=== PATIENT | male | born 1930 | race Caucasian/White ===

== ENCOUNTER 2016-12-23 13:24 | Inpatient (IN) | payer BC, OTHER ==
--- NOTE | 2016-12-23 13:43 | PDOC ---
History of Present Illness <Karl Bello - Last Filed: 12/23/16 16:43> - General History Source: Patient Exam Limitations: No Limitations - History of Present Illness Initial Comments: 12/23/16 14:20 The patient is a 86 year old male with significant past medical history of HTN, hypercholesterolemia, BPH, CHF, cardiomyopathy, and a known right inguinal hernia, who presents to the ED with daughter complaining of AMS. Patient is confused as to why he is in the hospital but is aware that he is at [facility]. As per daughter, the patient has deviated from his baseline over the past two weeks. She also notes that his confusion is in and out. She notes that she hired and aid for the patient because she noticed unusual behaviour and increased confusion. She denies any history of dementia for the patient. As per daughter she discussed the case with Dr. Owens who prompted her to present to the ED for further evaluation. PCP -Dr. Owens <Leilani Cedillo - Last Filed: 12/23/16 17:18> - General Chief Complaint: Altered Mental Status Stated Complaint: PCP SENT, ALTERED MENTAL STATE Time Seen by Provider: 12/23/16 13:42 Past History - Past Medical History Anemia: No Asthma: No Cancer: No Cardiac Disorders: Yes (chf) CVA: No COPD: No CHF: Yes DVT: No Dementia: No Diabetes: No Dialysis: No GI Disorders: No Disorders: Yes (ENLARGED PROSTATE) HTN: Yes Hypercholesterolemia: Yes Liver Disease: No Psychiatric Problems: Yes (anxiety) Suicide Attempt (Hx): No Seizures: No Thyroid Disease: No - Surgical History Abdominal Surgery: No Appendectomy: No Cardiac Surgery: Yes (Stent X1) Cholecystectomy: No Lung Surgery: No Neurologic Surgery: No Orthopedic Surgery: Yes (T.L. KNEE) - Immunization History Immunization Up to Date: Yes - Psycho/Social/Smoking Cessation Hx Anxiety: No Suicidal Ideation: No Smoking Status: No Smoking History: Never smoked Have you smoked in the past 12 months: No Number of Cigarettes Smoked Daily: 0 Information on smoking cessation initiated: No Hx Alcohol Use: No Drug/Substance Use Hx: No Substance Use Type: None Hx Substance Use Treatment: No <Karl Bello - Last Filed: 12/23/16 16:43> <Leilani Cedillo - Last Filed: 02/05/17 17:18> - Past Medical History Allergies/Adverse Reactions: Allergies Allergy/AdvReac Type Severity Reaction Status Date / Time No Known Drug Allergies Allergy Verified 08/30/16 16:23 Home Medications: Ambulatory Orders Tamsulosin HCl 0.4 mg PO AM 11/04/12 Atorvastatin Ca [Lipitor] 80 mg PO HS 11/18/12 Carvedilol [Coreg -] 6.25 mg PO DAILY 06/09/16 Furosemide [Lasix -] 40 mg PO BID 06/09/16 Aspirin [ASA -] 81 mg PO DAILY 12/23/16 Spironolactone 25 mg PO ASDIR 12/23/16 Review of Systems - Review of Systems Able to Perform ROS?: Yes Comments:: 12/23/16 14:20 GENERAL/CONSTITUTIONAL: No fever or chills. No weakness. HEAD, EYES, EARS, NOSE AND THROAT: No change in vision. No ear pain or discharge. No sore throat. CARDIOVASCULAR: No chest pain or shortness of breath. RESPIRATORY: No cough, wheezing, or hemoptysis. GASTROINTESTINAL: No nausea, vomiting, diarrhea or constipation. GENITOURINARY: No dysuria, frequency, or change in urination. MUSCULOSKELETAL: No joint or muscle swelling or pain. No neck or back pain. SKIN: No rash NEUROLOGIC: No headache, vertigo, loss of consciousness, or change in strength/ sensation. ENDOCRINE: No increased thirst. No abnormal weight change. HEMATOLOGIC/LYMPHATIC: No anemia, easy bleeding, or history of blood clots. ALLERGIC/IMMUNOLOGIC: No hives or skin allergy. <Leilani Cedillo - Last Filed: 12/23/16 17:18> *Physical Exam - Vital Signs Last Vital Signs Temp Pulse Resp BP Pulse Ox 97.5 F L 50 L 18 100/37 99 12/23/16 13:28 12/23/16 13:28 12/23/16 13:28 12/23/16 13:28 12/23/16 13:28 <Karl Bello - Last Filed: 12/23/16 16:43> - Vital Signs Last Vital Signs Temp Pulse Resp BP Pulse Ox 97.5 F L 50 L 18 100/37 99 12/23/16 13:28 12/23/16 13:28 12/23/16 13:28 12/23/16 13:28 12/23/16 13:28 - Physical Exam Comments: 12/23/16 14:20 GENERAL: Awake, alert, and oriented, in no acute distress HEAD: No signs of trauma EYES: PERRLA, EOMI, sclera anicteric, conjunctiva clear ENT: Auricles normal inspection, hearing grossly normal, nares patent, oropharynx clear without exudates. Moist mucosa NECK: Normal ROM, supple, no lymphadenopathy, JVD, or masses LUNGS: Breath sounds equal, clear to auscultation bilaterally. No wheezes, and no crackles HEART: Regular rate and rhythm, normal S1 and S2, no murmurs, rubs or gallops ABDOMEN: Soft, nontender, normoactive bowel sounds. No guarding, no rebound. No masses EXTREMITIES: Normal range of motion, no edema. No clubbing or cyanosis. No cords, erythema, or tenderness NEUROLOGICAL: Cranial nerves II through XII grossly intact. Normal speech, normal gait SKIN: Warm, Dry, normal turgor, no rashes or lesions noted. <Leilani Cedillo - Last Filed: 12/23/16 17:18> Heart Score/ECG Review #1 12/23/16 17:17 EKG was reviewed by Dr. Bello. Impression: sinus bradycardia with 1st degree AV block, low voltage QRS, vent. rate 51 bpm. <Leilani Cedillo - Last Filed: 12/23/16 17:18> ED Treatment Course - LABORATORY CBC & Chemistry Diagram: 12/23/16 14:15 12/23/16 14:15 <Karl Bello - Last Filed: 12/23/16 16:43> - LABORATORY CBC & Chemistry Diagram: 12/23/16 14:15 12/23/16 14:15 <Leilani Cedillo - Last Filed: 12/23/16 17:18> Medical Decision Making - Medical Decision Making 12/23/16 14:22 The patient is a 86 year old male with significant past medical history of HTN, hypercholesterolemia, BPH, CHF, cardiomyopathy, and a known right inguinal hernia who presents with AMS. Will order CT, blood work and UA. Will provide supportive care and reassess. 12/23/16 16:28 A call was placed to Dr. Owens. Awaiting a call back. <Leilani Cedillo - Last Filed: 12/23/16 17:18> *DC/Admit/Observation/Transfer - Discharge Dispostion Admit: Yes - Attestations Physician Attestion: 12/23/16 13:43 I, Dr. Karl Bello, attest that this document has been prepared under my direction and personally reviewed by me in its entirety. I further attest, that it accurately reflects all work, treatment, procedures and medical decision -making performed by me. <Karl Bello - Last Filed: 12/23/16 16:43> - Attestations Scribe Attestion: 12/23/16 14:22 Documentation prepared by TASNEEM Willingham, acting as medical technical writer for Karl Bello MD/. <Leilani Cedillo - Last Filed: 12/23/16 17:18> Diagnosis at time of Disposition: Renal insufficiency, Pleural effusion due to another disorder Mental status change Qualifiers: Altered mental status type: disorientation Qualified Code(s): R41.0 - Disorientation, unspecified CHF exacerbation Qualifiers: Congestive heart failure type: combined Qualified Code(s): I50.43 - Acute on chronic combined systolic (congestive) and diastolic (congestive) heart failure - Discharge Dispostion Condition at time of disposition: Unchanged/Unknown - Referrals
[2016-12-23 14:30] LABS: URINE APPEARANCE CLEAR; URINE BILIRUBIN NEGATIVE (NEGATIVE); URINE COLOR LTYELLOW; URINE GLUCOSE (UA) NEGATIVE (NEGATIVE); URINE KETONE NEGATIVE (NEGATIVE); URINE NITRITE NEGATIVE (NEGATIVE); URINE PROTEIN NEGATIVE (NEGATIVE); URINE UROBILINOGEN NEGATIVE E.U./dl (0.2-1.0)
[2016-12-23 14:33] LABS: URINE BLOOD 1+ (NEGATIVE); URINE LEUK ESTERASE TRACE (NEGATIVE)
[2016-12-23 14:34] LABS: EOSINOPHIL 6.8 % (0-4.5); MCHC 32.8 g/dl (32.0-35.9); MEAN CELL VOLUME 88.5 fl (80-96); MEAN PLT VOLUME 8.5 fl (7.5-11.1); NEUTROPHILS 75.5 % (42.8-82.8); PLATELET COUNT 145 K/MM3 (134-434); RDW 19.7 % (11.9-15.9); WHITE BLOOD COUNT 6.4 K/mm3 (4.0-10.0)
[2016-12-23 14:35] LABS: URINE HYALINE CAST 14 /lpf; URINE MUCUS RARE; URINE WBC 1 /hpf (3-5)
[2016-12-23 14:40] LABS: INR 1.2 (0.82-1.09); PROTHROMBIN TIME (PATIENT) 13.3 SEC (9.98-11.88)
[2016-12-23 14:55] LABS: BILIRUBIN,TOTAL 0.8 mg/dL (0.2-1.0); CREATININE 2.2 mg/dL (0.7-1.3); TOT PROT 6.7 g/dl (6.4-8.2)
[2016-12-23] MEDS ORDERED: SODIUM POLYSTYRENE SULFONATE 15 GM/60 ML BOTTLE PO ONE (16:49)
[2016-12-23] MEDS ORDERED: SODIUM POLYSTYRENE SULFONATE 15 GM/60 ML BOTTLE ONE (16:52)
[2016-12-23] MEDS ORDERED: SODIUM CHLORIDE 0.9% 1000 ML INFUS.BAG IV ONE (17:54)
[2016-12-23] MEDS ORDERED: ACETAMINOPHEN 325 MG TABLET (FP) PO PRN (18:38)
[2016-12-23 20:49] VITALS: BMI 22.1
[2016-12-23] MEDS: ATORVASTATIN CA 80 MG TABLET (FP) PO SCH (21:25)
[2016-12-23] MEDS: HEPARIN NA (PORCINE) 5,000 UNITS/ML 1ML VIAL SQ SCH (21:26)
[2016-12-24] MEDS: TAMSULOSIN HCL 0.4 MG CAP.ER.24H (FP) PO SCH (06:03)
[2016-12-24 06:57] LABS: BASOPHIL 1.2 % (0-2.0); MCH 28.8 pg (25.7-33.7); MCHC 32.6 g/dl (32.0-35.9); MEAN CELL VOLUME 88.4 fl (80-96); MEAN PLT VOLUME 8.2 fl (7.5-11.1); NEUTROPHILS 74.3 % (42.8-82.8); PLATELET COUNT 151 K/MM3 (134-434); RDW 19.5 % (11.9-15.9); WHITE BLOOD COUNT 6.5 K/mm3 (4.0-10.0)
[2016-12-24 07:20] LABS: ALBUMIN 2.8 g/dl (3.4-5.0); CALCIUM 8.2 mg/dL (8.5-10.1); TOT PROT 6.4 g/dl (6.4-8.2)
[2016-12-24] MEDS: HEPARIN NA (PORCINE) 5,000 UNITS/ML 1ML VIAL SQ SCH ×2 (09:56→22:00)
[2016-12-24] MEDS: CARVEDILOL 6.25 MG TABLET (FP) PO SCH (09:56)
[2016-12-24] MEDS: PANTOPRAZOLE 40 MG TABLET (FP) PO SCH (09:56)
[2016-12-24] MEDS: ASPIRIN 81 MG CHEWABLE TABLETS PO SCH (09:56)
[2016-12-24] MEDS ORDERED: SODIUM CHLORIDE 1,000 ML IV SCH (11:00)
--- NOTE | 2016-12-24 11:29 | CON.CARD ---
Consult Consult Specialty:: Cardiology Referred by:: Dario Swain MD Reason for Consultation:: CAD - History of Present Illness Chief Complaint: Altered mental status History of Present Illness: Patient is an 86 year old male with h/o ASHD S/P PCI/stent, angina pectoris, LV diastolic dysfunction with h/o failure, possible infiltrative cardiomyopathy, HTN/HCVD and hypercholesterolemia admitted for altered mental status, lethargy, acute on CKD and hyperkalemia, reports at chronic dyspnea, denies LE edema, chest pain, palpitations, near or true syncope, orthopnea, PND. Feels better after diuretics held and hydration. PCP -Dr. Owens - History Source History Provided By: Medical Record Limitations to Obtaining History: Poor Historian - Past Medical History Cardio/Vascular: Yes: CAD, CHF, HTN, Hyperlipdemia Renal/: Yes: BPH - Past Surgical History Past Surgical History: Yes: Stent, TURP - Alcohol/Substance Use Hx Alcohol Use: No History of Substance Use: reports: None - Smoking History Smoking history: Never smoked Have you smoked in the past 12 months: No Aproximately how many cigarettes per day: 0 - Social History ADL: Independent History of Recent Travel: No Home Medications - Allergies Allergies/Adverse Reactions: Allergies Allergy/AdvReac Type Severity Reaction Status Date / Time No Known Drug Allergies Allergy Verified 08/30/16 16:23 - Home Medications Home Medications: Ambulatory Orders Tamsulosin HCl 0.4 mg PO AM 11/04/12 Atorvastatin Ca [Lipitor] 80 mg PO HS 11/18/12 Carvedilol [Coreg -] 6.25 mg PO DAILY 06/09/16 Furosemide [Lasix -] 40 mg PO BID 06/09/16 Aspirin [ASA -] 81 mg PO DAILY 12/23/16 Spironolactone 25 mg PO ASDIR 12/23/16 Family Disease History - Family Disease History Family Disease History: Other: Father (unknown condition) Review of Systems - Review of Systems Constitutional: reports: Lethargy Neurological: reports: Confusion Vital Signs: Vital Signs Temperature 97.5 F L 12/24/16 05:00 Pulse Rate 61 12/24/16 05:00 Respiratory Rate 18 12/24/16 05:00 Blood Pressure 99/53 12/24/16 05:00 O2 Sat by Pulse Oximetry (%) 97 12/23/16 21:00 Constitutional: Yes: No Distress, Calm Neck: Yes: Supple Respiratory: Yes: Regular, Diminished Gastrointestinal: Yes: Normal Bowel Sounds, Soft Cardiovascular: Yes: Regular Rate and Rhythm JVD: No Carotid Bruit: No Heart Sounds: Yes: S1, S2 Murmur: Yes: Systolic Murmur, Grade 2 Edema: No - Other Data Labs, Other Data: CBC, BMP 12/24/16 06:00 12/24/16 06:00 INR, PTT INR 1.20 (0.82-1.09) H 12/23/16 14:15 Troponin, BNP 12/24/16 06:00 B-Natriuretic Peptide 33521.87 H Troponin, BNP 12/24/16 06:00 B-Natriuretic Peptide 87181.87 H SB @ 51 1st deg AVB, IVCD Ejection Fraction %: LVEF > or = 40 % Imaging - Results Chest X-ray: Report Reviewed (Bilateral pleural effusions) Cat Scan: Report Reviewed (HCT: No acute changes) Problem List - Problems (1) Acute metabolic encephalopathy Code(s): G93.41 - METABOLIC ENCEPHALOPATHY (2) Oovyo-uz-zvdszae kidney injury Code(s): N17.9 - ACUTE KIDNEY FAILURE, UNSPECIFIED N18.9 - CHRONIC KIDNEY DISEASE, UNSPECIFIED (3) Coronary artery disease Code(s): I25.10 - ATHSCL HEART DISEASE OF [place] CORONARY ARTERY W/O ANG PCTRS Qualifiers: Coronary Disease-Associated Artery/Lesion type: [place] artery [place] vs. transplanted heart: [place] heart Associated angina: without angina Qualified Code(s): I25.10 - Atherosclerotic heart disease of [place] coronary artery without angina pectoris (4) Diastolic CHF Code(s): I50.30 - UNSPECIFIED DIASTOLIC (CONGESTIVE) HEART FAILURE Qualifiers : Congestive heart failure chronicity: chronic Qualified Code(s): I50.32 - Chronic diastolic (congestive) heart failure (5) HLD (hyperlipidemia) Code(s): E78.5 - HYPERLIPIDEMIA, UNSPECIFIED Qualifiers: Hyperlipidemia type: pure hypercholesterolemia Qualified Code(s): E78.0 - Pure hypercholesterolemia (6) HTN (hypertension) Code(s): I10 - ESSENTIAL (PRIMARY) HYPERTENSION Qualifiers: Hypertension type: essential hypertension Qualified Code(s): I10 - Essential (primary) hypertension (7) Status post coronary artery stent placement Code(s): Z95.5 - PRESENCE OF CORONARY ANGIOPLASTY IMPLANT AND GRAFT Assessment/Plan 02/09/2016 Echo: Severe cLVH, mild-mod LV systolic dysfunction, mod AR, MR, mild BURT 1.7 cm^2, RVSP 38 mmHg 1. Acute metabolic encephelopathy improving 2. Acute on chronic kidney injury with hyperkalemia improving 3. Chronic diastolic CHF infiltrative cardiomyopathy cannot be excluded 4. CAD post PCI/stent, angina pectoris 5. HTN 6. Hypercholesterolemia 7. Questionable PAF although no clear documentation 8. Anemia PLAN: 1. Diuretics held, judicious hydration, f/u renal U/S, renal recovery and electrolytes 2. Continue Carvedilol 6.25 bid as hemodynamics tolerate 3. Resume Losartan once renal function stabilizes and hyperkalemia resolves 4. Continue ASA 81 qd and Lipitor 80 qd, Zetia was d/cande in office 5. Thank you for consultative opportunity
--- NOTE | 2016-12-24 11:30 | HP ---
Admitting History and Physical - Primary Care Physician PCP: Jose Owens - Admission Chief Complaint: I felt weak History of Present Illness: Mr Wisdom is a very pleasant 86 year old male who comes in with confusion. He currently says he is doing better and he is here for weakness. He says that it has been present for the past two weeks and it is new. He denies fevers, chills , lightheadedness, dizziness, chest pain or pressure, orthopnea, abdominal pain , nausea, vomiting, diarrhea constipation, or difficulty urinating. He says he does have shortness of breath but it is chronic. He says his legs are also chronically swollen. Per ER note daughter observed patient becoming more confused over the past two weeks and was concerning enough to hire an aid. However he was not improving so she brought him in for further evaluation. History Source: Patient Limitations to Obtaining History: Clinical Condition - Past Medical History Cardiovascular: Yes: CAD, CHF, HTN, Hyperlipdemia Renal/: Yes: BPH - Past Surgical History Past Surgical History: Yes: Stent, TURP - Smoking History Smoking history: Never smoked Have you smoked in the past 12 months: No Aproximately how many cigarettes per day: 0 - Alcohol/Substance Use Hx Alcohol Use: No History of Substance Use: reports: None - Social History Usual Living Arrangement: Yes: Alone ADL: Independent History of Recent Travel: No Home Medications - Allergies Allergies/Adverse Reactions: Allergies Allergy/AdvReac Type Severity Reaction Status Date / Time No Known Drug Allergies Allergy Verified 08/30/16 16:23 - Home Medications Home Medications: Ambulatory Orders Tamsulosin HCl 0.4 mg PO AM 11/04/12 Atorvastatin Ca [Lipitor] 80 mg PO HS 11/18/12 Carvedilol [Coreg -] 6.25 mg PO DAILY 06/09/16 Furosemide [Lasix -] 40 mg PO BID 06/09/16 Aspirin [ASA -] 81 mg PO DAILY 12/23/16 Spironolactone 25 mg PO ASDIR 12/23/16 Family Disease History - Family Disease History Family Disease History: Other: Father (unknown condition) Review of Systems Findings/Remarks: Full review of systems obtained, as per HPI and otherwise negative. Physical Examination Vital Signs: Vital Signs Temperature 97.5 F L 12/24/16 05:00 Pulse Rate 61 12/24/16 05:00 Respiratory Rate 18 02/06/17 05:00 Blood Pressure 99/53 12/24/16 05:00 O2 Sat by Pulse Oximetry (%) 97 12/23/16 21:00 Constitutional: Yes: Well Nourished, No Distress, Calm Eyes: Yes: Conjunctiva Clear, EOM Intact, PERRL HENT: Yes: Atraumatic, Normocephalic Cardiovascular: Yes: Pulse Irregular. No: Tachycardia, Gallop, Murmur, Rub Respiratory: Yes: Regular, CTA Bilaterally. No: Rales, Rhonchi, Wheezes Gastrointestinal: Yes: Normal Bowel Sounds. No: Distention, Tenderness Extremities: Yes: WNL Edema: No Labs: CBC, BMP 12/24/16 06:00 12/24/16 06:00 Imaging - Results Chest X-ray: Report Reviewed, Image Reviewed Cat Scan: Report Reviewed Problem List - Problems (1) Aseti-tc-bycrtux kidney injury Assessment/Plan: -Mr Wisdom comes in with mental status changes and found to have ARF on CKD -suspect secondary to diuresis, on both aldactone and lasix as an outpatient for CHF -hold diuretics -gentle hydration -obtain renal ultrasound -nephrology consulted Code(s): N17.9 - ACUTE KIDNEY FAILURE, UNSPECIFIED N18.9 - CHRONIC KIDNEY DISEASE, UNSPECIFIED (2) Acute metabolic encephalopathy Assessment/Plan: -secondary to uremia from ARF on CKD -treat ARF -continue hydration -monitor for improvement Code(s): G93.41 - METABOLIC ENCEPHALOPATHY (3) Diastolic CHF Assessment/Plan: -not in exacerbation -suspect dehydrated -gentle hydration -cardiology consulted -will need close monitoring Code(s): I50.30 - UNSPECIFIED DIASTOLIC (CONGESTIVE) HEART FAILURE Qualifiers : Congestive heart failure chronicity: chronic Qualified Code(s): I50.32 - Chronic diastolic (congestive) heart failure (4) HTN (hypertension) Assessment/Plan: -currently hypotensive secondary to dehydration -continue coreg for atrial fibrillation -holding lasix and aldactone as above -suspect will improve once fluid resuscitated Code(s): I10 - ESSENTIAL (PRIMARY) HYPERTENSION Qualifiers: Hypertension type: essential hypertension Qualified Code(s): I10 - Essential (primary) hypertension (5) Atrial fibrillation Assessment/Plan: -continue coreg -rate controlled -noted not on anticoagulation, will d/w cardiology Code(s): I48.91 - UNSPECIFIED ATRIAL FIBRILLATION Qualifiers: Atrial fibrillation type: chronic Qualified Code(s): I48.2 - Chronic atrial fibrillation (6) BPH (benign prostatic hyperplasia) Assessment/Plan: -continue flomax Code(s): N40.0 - BENIGN PROSTATIC HYPERPLASIA WITHOUT LOWER URINRY TRACT SYMP (7) Coronary artery disease Assessment/Plan: -quiescent -currently without chest pain -continue coreg and statin Code(s): I25.10 - ATHSCL HEART DISEASE OF [place] CORONARY ARTERY W/O ANG PCTRS Qualifiers: Coronary Disease-Associated Artery/Lesion type: [place] artery [place] vs. transplanted heart: [place] heart Associated angina: without angina Qualified Code(s): I25.10 - Atherosclerotic heart disease of [place] coronary artery without angina pectoris (8) HLD (hyperlipidemia) Assessment/Plan: -continue statin Code(s): E78.5 - HYPERLIPIDEMIA, UNSPECIFIED Qualifiers: Hyperlipidemia type: Pure hypercholesterolemia Qualified Code(s): E78.0 - Pure hypercholesterolemia
--- NOTE | 2016-12-24 12:24 | CONSULT ---
Consult - text type - Consultation Consultation Note: Renal Consult for DARNELL on CKD This is a 86 year old gentleman with PMhx of CAD s/p PCI and stenting, CHF, BPH , CKD (baseline line Cr 1.4?)Hypertension who presented with AMS/Confusion at home and found to have BUN/Cr of 98/2.2. Pt is oriented x 3 but cannot specify why he came to the hospital. S/p IVF since admission. Denies any sob, chest pain. Denies any CKD history. Denies nephrolithiasis, [place], hematuria, dark urine. Denies any NSAID use. No recent contrast exposure. Was on Lasix + Aldactone at home. No SOFIA/ARB. Feels well now. PMhx: as above Allergies: NKDA Family Hx: NC Social Hx: No T/A/D ROS: as per HPI, all other pertinent ros negative Home Meds: Home Medications Medication Instructions Recorded Tamsulosin HCl 0.4 mg PO AM 11/04/12 Atorvastatin Ca [Lipitor] 80 mg PO HS 11/18/12 Carvedilol [Coreg -] 6.25 mg PO DAILY 06/09/16 Furosemide [Lasix -] 40 mg PO BID 06/09/16 Aspirin [ASA -] 81 mg PO DAILY 12/23/16 Spironolactone 25 mg PO ASDIR 12/23/16 Vital Signs Temperature 97.5 F L 12/24/16 05:00 Pulse Rate 61 12/24/16 05:00 Respiratory Rate 18 12/24/16 05:00 Blood Pressure 99/53 12/24/16 05:00 O2 Sat by Pulse Oximetry (%) 97 12/23/16 21:00 Intake & Output 12/21/16 12/22/16 12/23/16 12/24/16 23:59 23:59 23:59 23:59 Intake Total 50 50 Balance 50 50 Weight 137 lb 5 oz 130 lb 4.8 oz Gen: NAD, awake and alert HEENT: NC/AT, MMM, No JVD CVS: RRR, No M/R Lungs: + rales at lung bases Abd: soft NT/ND Ext: No edema, clubbing or cyanosis Neuro: AAOX3, slow, confused : No bladder distension CBC, BMP 12/24/16 06:00 12/24/16 06:00 Laboratory Tests 12/23/16 14:15 Urine Protein Negative Urine Glucose (UA) Negative Urine Ketones Negative Urine Blood 1+ H Urine Nitrite Negative Urine Bilirubin Negative Urine Urobilinogen Negative Urine RBC None Current Medications Acetaminophen (Tylenol -) 650 mg PO Q6H PRN PRN Reason: FEVER OR PAIN Aspirin (Asa -) 81 mg PO DAILY [facility] Last Admin: 12/24/16 09:56 Dose: 81 mg Atorvastatin Calcium (Lipitor -) 80 mg PO HS [facility] Last Admin: 12/23/16 21:25 Dose: 80 mg Carvedilol (Coreg -) 6.25 mg PO DAILY [facility] Last Admin: 12/24/16 09:56 Dose: 6.25 mg Heparin Sodium (Porcine) (Heparin -) 5,000 unit SQ BID [facility] Last Admin: 12/24/16 09:56 Dose: 5,000 unit Sodium Chloride (Normal Saline -) 1,000 mls @ 50 mls/hr IV ASDIR [facility] Stop: 12/25/16 10:55 Pantoprazole Sodium (Protonix -) 40 mg PO DAILY [facility] Last Admin: 12/24/16 09:56 Dose: 40 mg Tamsulosin HCl (Flomax -) 0.4 mg PO AM [facility] Last Admin: 12/24/16 06:03 Dose: 0.4 mg A/p 86 year old gentleman with PMhx of CAD s/p PCI and stenting, CHF, BPH, CKD ( baseline line Cr 1.4?)Hypertension who presented with AMS/Confusion at home and found to have BUN/Cr of 98/2.2. #DARNELL on CKD Likey due to intravascular volume depletion (high BUN/Cr ratio, on diuretics, clinialy evolemic to dry) Check FeUrea, UPCR Check kidney and bladder US hold diuretics for now but caution with IVF given Hx of CHF Trend BUN/Cr avoid nsaids, sofia/arb for now #CHF (?Amyloid appearance on prior eceho) no overt volume overload at this time consider CT of the chest to better characteize effusions vs. pleural lung disease check SPEP/UPEP/Free light chains Cardiology following #Confusion/AMS CT head negative work up as per primary #Anemia Check iron profile SPEP/UPEP #BPH Continue Flomax Thank you Will follow Devin Edmondson DO
--- NOTE | 2016-12-24 13:31 | EKG ---
Test Reason : Blood Pressure : / mmHG Vent. Rate : 051 BPM Atrial Rate : 051 BPM P-R Int : 000 ms QRS Dur : 102 ms QT Int : 468 ms P-R-T Axes : 000 006 202 degrees QTc Int : 431 ms SINUS BRADYCARDIA WITH 1ST DEGREE A-V BLOCK LOW VOLTAGE QRS CANNOT RULE OUT ANTERIOR INFARCT , AGE UNDETERMINED ABNORMAL ECG WHEN COMPARED WITH ECG OF 12-JUN-2016 10:01, QUESTIONABLE CHANGE IN QRS AXIS NONSPECIFIC T WAVE ABNORMALITY HAS REPLACED INVERTED T WAVES IN INFERIOR LEADS Confirmed by CLARISA ESCOBEDO MD ([id number]) on 12/24/2016 1:31:11 PM Referred By: Confirmed By:CLARISA ESCOBEDO MD
[2016-12-24] MEDS: ATORVASTATIN CA 80 MG TABLET (FP) PO SCH (22:00)
[2016-12-25] MEDS: TAMSULOSIN HCL 0.4 MG CAP.ER.24H (FP) PO SCH (06:57)
[2016-12-25 07:24] LABS: BASOPHIL 0.9 % (0-2.0); EOSINOPHIL 7.7 % (0-4.5); MCH 29.4 pg (25.7-33.7); MCHC 33.5 g/dl (32.0-35.9); MEAN CELL VOLUME 87.9 fl (80-96); MEAN PLT VOLUME 8.3 fl (7.5-11.1); NEUTROPHILS 75.1 % (42.8-82.8); PLATELET COUNT 147 K/MM3 (134-434); RDW 19.3 % (11.9-15.9); WHITE BLOOD COUNT 7.1 K/mm3 (4.0-10.0)
[2016-12-25 07:40] LABS: ALBUMIN 2.8 g/dl (3.4-5.0); CALCIUM 8.1 mg/dL (8.5-10.1); CREATININE 1.9 mg/dL (0.7-1.3); MAGNESIUM 2.8 mg/dL (1.8-2.4); PHOSPHOROUS 3.2 mg/dL (2.5-4.9)
[2016-12-25 07:41] LABS: TOT PROT 6.3 g/dl (6.4-8.2)
[2016-12-25] MEDS: HEPARIN NA (PORCINE) 5,000 UNITS/ML 1ML VIAL SQ SCH ×2 (09:30→22:54)
[2016-12-25] MEDS: PANTOPRAZOLE 40 MG TABLET (FP) PO SCH (09:30)
[2016-12-25] MEDS: CARVEDILOL 6.25 MG TABLET (FP) PO SCH (09:32)
[2016-12-25] MEDS: ASPIRIN 81 MG CHEWABLE TABLETS PO SCH (09:33)
--- NOTE | 2016-12-25 10:47 | PN ---
Progress Note, Physician Chief Complaint: Events noted Not in distress History of Present Illness: Patient was seen and examined. Awake and alert. Chart was reviewed Denies chest pain or shortness of breath Appears comfortable - Current Medication List Current Medications: Active Medications Acetaminophen (Tylenol -) 650 mg PO Q6H PRN PRN Reason: FEVER OR PAIN Aspirin (Asa -) 81 mg PO DAILY [facility] Last Admin: 12/25/16 09:33 Dose: 81 mg Atorvastatin Calcium (Lipitor -) 80 mg PO HS [facility] Last Admin: 12/24/16 22:00 Dose: 80 mg Carvedilol (Coreg -) 6.25 mg PO DAILY [facility] Last Admin: 12/25/16 09:32 Dose: Not Given Heparin Sodium (Porcine) (Heparin -) 5,000 unit SQ BID [facility] Last Admin: 12/25/16 09:30 Dose: 5,000 unit Sodium Chloride (Normal Saline -) 1,000 mls @ 50 mls/hr IV ASDIR [facility] Stop: 12/25/16 10:55 Last Admin: 12/24/16 19:13 Dose: Not Given Pantoprazole Sodium (Protonix -) 40 mg PO DAILY [facility] Last Admin: 12/25/16 09:30 Dose: 40 mg Tamsulosin HCl (Flomax -) 0.4 mg PO AM [facility] Last Admin: 12/25/16 06:57 Dose: 0.4 mg - Objective Vital Signs: Vital Signs Temperature 97.5 F L 12/25/16 08:49 Pulse Rate 71 12/25/16 08:49 Respiratory Rate 20 12/25/16 08:49 Blood Pressure 97/52 12/25/16 08:49 O2 Sat by Pulse Oximetry (%) 92 L 12/25/16 08:50 Neck: Yes: Supple Cardiovascular: Yes: Regular Rate and Rhythm, Murmur (Soft SM), S1, S2 Respiratory: Yes: Diminished Gastrointestinal: Yes: Normal Bowel Sounds, Soft. No: Tenderness Edema: No Additional Findings/Remarks: - Review of Systems Constitutional: denies: Chills, Fever Cardiovascular: As noted above Respiratory: denies: Cough or Sputum Production Gastrointestinal: denies: Nausea, Vomiting, Diarrhea, Constipation or Abdominal Pain Musculoskeletal: No symptoms reported Neurological: denies: Dizziness or Headaches Labs: CBC, BMP 12/25/16 06:00 12/25/16 06:00 Problem List - Problems (1) Acute metabolic encephalopathy Code(s): G93.41 - METABOLIC ENCEPHALOPATHY (2) CHF exacerbation Code(s): I50.9 - HEART FAILURE, UNSPECIFIED Qualifiers: Congestive heart failure type: combined Qualified Code(s): I50.43 - Acute on chronic combined systolic (congestive) and diastolic (congestive) heart failure (3) Jhlxk-kb-oxfumzs kidney injury Code(s): N17.9 - ACUTE KIDNEY FAILURE, UNSPECIFIED N18.9 - CHRONIC KIDNEY DISEASE, UNSPECIFIED (4) Atrial fibrillation Code(s): I48.91 - UNSPECIFIED ATRIAL FIBRILLATION Qualifiers: Atrial fibrillation type: chronic Qualified Code(s): I48.2 - Chronic atrial fibrillation (5) Coronary artery disease Code(s): I25.10 - ATHSCL HEART DISEASE OF [place] CORONARY ARTERY W/O ANG PCTRS Qualifiers: Coronary Disease-Associated Artery/Lesion type: [place] artery [place] vs. transplanted heart: [place] heart Associated angina: without angina Qualified Code(s): I25.10 - Atherosclerotic heart disease of [place] coronary artery without angina pectoris (6) HLD (hyperlipidemia) Code(s): E78.5 - HYPERLIPIDEMIA, UNSPECIFIED Qualifiers: Hyperlipidemia type: pure hypercholesterolemia Qualified Code(s): E78.0 - Pure hypercholesterolemia (7) HTN (hypertension) Code(s): I10 - ESSENTIAL (PRIMARY) HYPERTENSION Qualifiers: Hypertension type: essential hypertension Qualified Code(s): I10 - Essential (primary) hypertension (8) Pleural effusion due to CHF (congestive heart failure) Code(s): I50.9 - HEART FAILURE, UNSPECIFIED (9) Status post coronary artery stent placement Code(s): Z95.5 - PRESENCE OF CORONARY ANGIOPLASTY IMPLANT AND GRAFT Assessment/Plan 1. Acute metabolic encephalopathy improving 2. Acute on chronic kidney injury with hyperkalemia improving 3. Chronic diastolic CHF - infiltrative cardiomyopathy cannot be excluded 4. CAD post PCI/stent, angina pectoris 5. HTN 6. Hypercholesterolemia 7. Anemia PLAN: 1. Diuretics held, judicious hydration, follow renal function 2. Continue Carvedilol 6.25 mg BID as hemodynamics tolerate 3. Resume Losartan once renal function stabilizes and hyperkalemia resolves 4. Continue ASA 81 mg QD and Lipitor 80 mg QHS Further plans are to follow Gulshan Escobedo MD
--- NOTE | 2016-12-25 11:01 | PN ---
Progress Note (short form) - Note Progress Note: Renal Follow up for DARNELL on CKD Pt seen and examined at the bedside No acute complaints denies sob, chest pain, abd pain, N/V/D good appetite good urine output Vital Signs Temperature 97.5 F L 12/25/16 08:49 Pulse Rate 71 12/25/16 08:49 Respiratory Rate 20 12/25/16 08:49 Blood Pressure 97/52 12/25/16 08:49 O2 Sat by Pulse Oximetry (%) 92 L 12/25/16 08:50 Intake & Output 12/22/16 12/23/16 12/24/16 12/25/16 23:59 23:59 23:59 23:59 Intake Total 50 1250 Output Total 1 Balance 50 1250 -1 Weight 137 lb 5 oz 130 lb 4.8 oz 134 lb 14.4 oz Gen: NAD, awake and alert CVS: RRR, No M/R Lungs: + rales at lung bases Abd: soft NT/ND Ext: No edema, clubbing or cyanosis CBC, BMP 12/25/16 06:00 12/25/16 06:00 Current Medications Acetaminophen (Tylenol -) 650 mg PO Q6H PRN PRN Reason: FEVER OR PAIN Aspirin (Asa -) 81 mg PO DAILY [facility] Last Admin: 12/25/16 09:33 Dose: 81 mg Atorvastatin Calcium (Lipitor -) 80 mg PO HS [facility] Last Admin: 12/24/16 22:00 Dose: 80 mg Carvedilol (Coreg -) 6.25 mg PO DAILY [facility] Last Admin: 12/25/16 09:32 Dose: Not Given Heparin Sodium (Porcine) (Heparin -) 5,000 unit SQ BID [facility] Last Admin: 12/25/16 09:30 Dose: 5,000 unit Pantoprazole Sodium (Protonix -) 40 mg PO DAILY [facility] Last Admin: 12/25/16 09:30 Dose: 40 mg Tamsulosin HCl (Flomax -) 0.4 mg PO AM [facility] Last Admin: 12/25/16 06:57 Dose: 0.4 mg A/p 86 year old gentleman with PMhx of CAD s/p PCI and stenting, CHF, BPH, CKD ( baseline line Cr 1.4?)Hypertension who presented with AMS/Confusion at home and found to have BUN/Cr of 98/2.2. #DARNELL on CKD Urine studies consistent with volume depletion Renal function improving slowly continue to hold diuretics for now Urine Protein to Cr ratio is 0.4 Renal Us showed normal size kidneys but an enlarged prostate holding IVF because of Hx of CHF, and small effusions seen on CXR/US #CHF (?Amyloid appearance on prior eceho) no overt volume overload at this time US showed b/l effusions consider CT of the chest to better characterize effusions vs. pleural lung disease SPEP/UPEP/Free light chains- pending Cardiology following #Confusion/AMS CT head negative work up as per primary #Anemia Check iron profile SPEP/UPEP #BPH Continue Flomax Devin Edmondson DO
--- NOTE | 2016-12-25 17:06 | PN ---
Progress Note, Physician Chief Complaint: Mr Wisdom is without complaint. Sitting in chair and reading the newspaper. No cp, sob, n/v. - Current Medication List Current Medications: Active Medications Acetaminophen (Tylenol -) 650 mg PO Q6H PRN PRN Reason: FEVER OR PAIN Aspirin (Asa -) 81 mg PO DAILY [facility] Last Admin: 12/25/16 09:33 Dose: 81 mg Atorvastatin Calcium (Lipitor -) 80 mg PO HS [facility] Last Admin: 12/24/16 22:00 Dose: 80 mg Carvedilol (Coreg -) 6.25 mg PO DAILY [facility] Last Admin: 12/25/16 09:32 Dose: Not Given Heparin Sodium (Porcine) (Heparin -) 5,000 unit SQ BID [facility] Last Admin: 12/25/16 09:30 Dose: 5,000 unit Pantoprazole Sodium (Protonix -) 40 mg PO DAILY [facility] Last Admin: 12/25/16 09:30 Dose: 40 mg Tamsulosin HCl (Flomax -) 0.4 mg PO AM [facility] Last Admin: 12/25/16 06:57 Dose: 0.4 mg - Objective Vital Signs: Vital Signs Temperature 97.5 F L 12/25/16 16:24 Pulse Rate 67 12/25/16 16:24 Respiratory Rate 18 12/25/16 16:24 Blood Pressure 98/47 12/25/16 16:24 O2 Sat by Pulse Oximetry (%) 92 L 12/25/16 08:50 Constitutional: Yes: Well Nourished, No Distress, Calm Cardiovascular: Yes: Regular Rate and Rhythm. No: Gallop, Murmur, Rub Respiratory: Yes: Regular, CTA Bilaterally. No: Rales, Rhonchi, Wheezes Gastrointestinal: Yes: Normal Bowel Sounds, Soft. No: Distention, Tenderness Extremities: Yes: WNL Edema: No Labs: CBC, BMP 12/25/16 06:00 12/25/16 06:00 INR, PTT INR 1.20 (0.82-1.09) H 12/23/16 14:15 Problem List - Problems (1) Sdbhj-tp-[id number] kidney injury Code(s): N17.9 - ACUTE KIDNEY FAILURE, UNSPECIFIED N18.9 - CHRONIC KIDNEY DISEASE, UNSPECIFIED (2) Acute metabolic encephalopathy Code(s): G93.41 - METABOLIC ENCEPHALOPATHY (3) Diastolic CHF Code(s): I50.30 - UNSPECIFIED DIASTOLIC (CONGESTIVE) HEART FAILURE Qualifiers : Congestive heart failure chronicity: chronic Qualified Code(s): I50.32 - Chronic diastolic (congestive) heart failure (4) HTN (hypertension) Code(s): I10 - ESSENTIAL (PRIMARY) HYPERTENSION Qualifiers: Hypertension type: essential hypertension Qualified Code(s): I10 - Essential (primary) hypertension (5) Atrial fibrillation Code(s): I48.91 - UNSPECIFIED ATRIAL FIBRILLATION Qualifiers: Atrial fibrillation type: chronic Qualified Code(s): I48.2 - Chronic atrial fibrillation (6) BPH (benign prostatic hyperplasia) Code(s): N40.0 - BENIGN PROSTATIC HYPERPLASIA WITHOUT LOWER URINRY TRACT SYMP (7) Coronary artery disease Code(s): I25.10 - ATHSCL HEART DISEASE OF [place] CORONARY ARTERY W/O ANG PCTRS Qualifiers: Coronary Disease-Associated Artery/Lesion type: [place] artery [place] vs. transplanted heart: [place] heart Associated angina: without angina Qualified Code(s): I25.10 - Atherosclerotic heart disease of [place] coronary artery without angina pectoris (8) HLD (hyperlipidemia) Code(s): E78.5 - HYPERLIPIDEMIA, UNSPECIFIED Qualifiers: Hyperlipidemia type: pure hypercholesterolemia Qualified Code(s): E78.0 - Pure hypercholesterolemia Assessment/Plan (1) Zhlrl-qn-buvwyho kidney injury Assessment/Plan: -nephrology following -slowly improving -continue to hold diuretics -nephrology and cardiology to decide when safe to restart diuretics and losartan Code(s): N17.9 - ACUTE KIDNEY FAILURE, UNSPECIFIED N18.9 - CHRONIC KIDNEY DISEASE, UNSPECIFIED (2) Acute metabolic encephalopathy Assessment/Plan: -resolved Code(s): G93.41 - METABOLIC ENCEPHALOPATHY (3) Diastolic CHF Assessment/Plan: -not in exacerbation -cardiology following Code(s): I50.30 - UNSPECIFIED DIASTOLIC (CONGESTIVE) HEART FAILURE Qualifiers : Congestive heart failure chronicity: chronic Qualified Code(s): I50.32 - Chronic diastolic (congestive) heart failure (4) HTN (hypertension) Assessment/Plan: -currently hypotensive secondary to dehydration -continue coreg for atrial fibrillation -holding lasix and aldactone as above -defer further hydration since asymptomatic and with CHF Code(s): I10 - ESSENTIAL (PRIMARY) HYPERTENSION Qualifiers: Hypertension type: essential hypertension Qualified Code(s): I10 - Essential (primary) hypertension (5) Atrial fibrillation Assessment/Plan: -continue coreg -rate controlled -noted not on anticoagulation Code(s): I48.91 - UNSPECIFIED ATRIAL FIBRILLATION Qualifiers: Atrial fibrillation type: chronic Qualified Code(s): I48.2 - Chronic atrial fibrillation (6) BPH (benign prostatic hyperplasia) Assessment/Plan: -continue flomax Code(s): N40.0 - BENIGN PROSTATIC HYPERPLASIA WITHOUT LOWER URINRY TRACT SYMP (7) Coronary artery disease Assessment/Plan: -quiescent -currently without chest pain -continue coreg and statin Code(s): I25.10 - ATHSCL HEART DISEASE OF [place] CORONARY ARTERY W/O ANG PCTRS Qualifiers: Coronary Disease-Associated Artery/Lesion type: [place] artery [place] vs. transplanted heart: [place] heart Associated angina: without angina Qualified Code(s): I25.10 - Atherosclerotic heart disease of [place] coronary artery without angina pectoris (8) HLD (hyperlipidemia) Assessment/Plan: -continue statin Code(s): E78.5 - HYPERLIPIDEMIA, UNSPECIFIED Qualifiers: Hyperlipidemia type: Pure hypercholesterolemia Qualified Code(s): E78.0 - Pure hypercholesterolemia
[2016-12-25] MEDS: ATORVASTATIN CA 80 MG TABLET (FP) PO SCH (22:54)
[2016-12-26] MEDS: TAMSULOSIN HCL 0.4 MG CAP.ER.24H (FP) PO SCH (06:16)
[2016-12-26 07:23] LABS: BASOPHIL 0.8 % (0-2.0); MCH 29.2 pg (25.7-33.7); MCHC 33.2 g/dl (32.0-35.9); MEAN CELL VOLUME 87.7 fl (80-96); MEAN PLT VOLUME 8.1 fl (7.5-11.1); NEUTROPHILS 77.6 % (42.8-82.8); PLATELET COUNT 147 K/MM3 (134-434); RDW 19.3 % (11.9-15.9); WHITE BLOOD COUNT 6.9 K/mm3 (4.0-10.0)
[2016-12-26 07:49] LABS: CALCIUM 8.4 mg/dL (8.5-10.1); CREATININE 1.7 mg/dL (0.7-1.3); MAGNESIUM 2.8 mg/dL (1.8-2.4); PHOSPHOROUS 2.9 mg/dL (2.5-4.9)
[2016-12-26] MEDS: PANTOPRAZOLE 40 MG TABLET (FP) PO SCH (10:26)
[2016-12-26] MEDS: HEPARIN NA (PORCINE) 5,000 UNITS/ML 1ML VIAL SQ SCH ×2 (10:26→21:58)
[2016-12-26] MEDS: ASPIRIN 81 MG CHEWABLE TABLETS PO SCH (10:26)
[2016-12-26] MEDS: CARVEDILOL 6.25 MG TABLET (FP) PO SCH (10:26)
--- NOTE | 2016-12-26 12:54 | PN ---
Progress Note (short form) - Note Progress Note: Renal Follow up for DARNELL on CKD Pt seen and examined at the bedside no acute complaints denies sob, chest pain Vital Signs Temperature 97.6 F 12/26/16 05:39 Pulse Rate 73 12/26/16 05:39 Respiratory Rate 20 12/26/16 05:39 Blood Pressure 118/60 12/26/16 05:39 O2 Sat by Pulse Oximetry (%) 95 12/25/16 21:00 Intake & Output 12/23/16 12/24/16 12/25/16 12/26/16 23:59 23:59 23:59 23:59 Intake Total 50 1250 1400 150 Output Total 201 400 Balance 50 1250 1199 -250 Weight 137 lb 5 oz 130 lb 4.8 oz 134 lb 14.4 oz 135 lb 6.4 oz Gen: NAD, awake and alert CVS: RRR, No M/R Lungs: + rales at lung bases Abd: soft NT/ND Ext: No edema, clubbing or cyanosis CBC, BMP 12/26/16 06:00 12/26/16 06:00 Current Medications Acetaminophen (Tylenol -) 650 mg PO Q6H PRN PRN Reason: FEVER OR PAIN Aspirin (Asa -) 81 mg PO DAILY [facility] Last Admin: 12/26/16 10:26 Dose: 81 mg Atorvastatin Calcium (Lipitor -) 80 mg PO HS [facility] Last Admin: 12/25/16 22:54 Dose: 80 mg Carvedilol (Coreg -) 6.25 mg PO DAILY [facility] Last Admin: 12/26/16 10:26 Dose: 6.25 mg Heparin Sodium (Porcine) (Heparin -) 5,000 unit SQ BID [facility] Last Admin: 12/26/16 10:26 Dose: 5,000 unit Pantoprazole Sodium (Protonix -) 40 mg PO DAILY [facility] Last Admin: 12/26/16 10:26 Dose: 40 mg Tamsulosin HCl (Flomax -) 0.4 mg PO AM [facility] Last Admin: 12/26/16 06:16 Dose: 0.4 mg A/p 86 year old gentleman with PMhx of CAD s/p PCI and stenting, CHF, BPH, CKD ( baseline line Cr 1.4?)Hypertension who presented with AMS/Confusion at home and found to have BUN/Cr of 98/2.2. #DARNELL on CKD Urine studies consistent with volume depletion Renal function improving off diuretics pt w/o signs of volume expansion if BUN/cr improve tomorrow can resume Lasix 40mg Daily and further titrate as outpatient OK to start Losartan as outpatient if renal function stable on diuretics #CHF (?Amyloid appearance on prior eceho) no overt volume overload at this time US showed b/l effusions CT of chest done Pulmonary eval SPEP/UPEP/Free light chains- pending Cardiology following #Confusion/AMS CT head negative work up as per primary #Anemia Check iron profile SPEP/UPEP #BPH Continue Flomax Devin Edmondson DO
--- NOTE | 2016-12-26 13:20 | PN ---
Progress Note, Physician History of Present Illness: Mental status at baseline, denies chest pain or dyspnea. - Current Medication List Current Medications: Active Medications Acetaminophen (Tylenol -) 650 mg PO Q6H PRN PRN Reason: FEVER OR PAIN Aspirin (Asa -) 81 mg PO DAILY [facility] Last Admin: 12/26/16 10:26 Dose: 81 mg Atorvastatin Calcium (Lipitor -) 80 mg PO HS [facility] Last Admin: 12/25/16 22:54 Dose: 80 mg Carvedilol (Coreg -) 6.25 mg PO DAILY [facility] Last Admin: 12/26/16 10:26 Dose: 6.25 mg Heparin Sodium (Porcine) (Heparin -) 5,000 unit SQ BID [facility] Last Admin: 12/26/16 10:26 Dose: 5,000 unit Pantoprazole Sodium (Protonix -) 40 mg PO DAILY [facility] Last Admin: 12/26/16 10:26 Dose: 40 mg Tamsulosin HCl (Flomax -) 0.4 mg PO AM [facility] Last Admin: 12/26/16 06:16 Dose: 0.4 mg - Objective Vital Signs: Vital Signs Temperature 97.6 F 12/26/16 05:39 Pulse Rate 73 12/26/16 05:39 Respiratory Rate 20 12/26/16 05:39 Blood Pressure 118/60 12/26/16 05:39 O2 Sat by Pulse Oximetry (%) 95 12/25/16 21:00 Constitutional: Yes: No Distress, Calm Neck: Yes: Supple Cardiovascular: Yes: Regular Rate and Rhythm Respiratory: Yes: Regular, Diminished Gastrointestinal: Yes: Normal Bowel Sounds, Soft Edema: No Labs: CBC, BMP 12/26/16 06:00 12/26/16 06:00 INR, PTT INR 1.20 (0.82-1.09) H 12/23/16 14:15 Problem List - Problems (1) Acute metabolic encephalopathy Code(s): G93.41 - METABOLIC ENCEPHALOPATHY (2) Nuhhm-vt-sgfbywm kidney injury Code(s): N17.9 - ACUTE KIDNEY FAILURE, UNSPECIFIED N18.9 - CHRONIC KIDNEY DISEASE, UNSPECIFIED (3) Coronary artery disease Code(s): I25.10 - ATHSCL HEART DISEASE OF [place] CORONARY ARTERY W/O ANG PCTRS Qualifiers: Coronary Disease-Associated Artery/Lesion type: [place] artery [place] vs. transplanted heart: [place] heart Associated angina: without angina Qualified Code(s): I25.10 - Atherosclerotic heart disease of [place] coronary artery without angina pectoris (4) Diastolic CHF Code(s): I50.30 - UNSPECIFIED DIASTOLIC (CONGESTIVE) HEART FAILURE Qualifiers : Congestive heart failure chronicity: chronic Qualified Code(s): I50.32 - Chronic diastolic (congestive) heart failure (5) HLD (hyperlipidemia) Code(s): E78.5 - HYPERLIPIDEMIA, UNSPECIFIED Qualifiers: Hyperlipidemia type: pure hypercholesterolemia Qualified Code(s): E78.0 - Pure hypercholesterolemia (6) HTN (hypertension) Code(s): I10 - ESSENTIAL (PRIMARY) HYPERTENSION Qualifiers: Hypertension type: essential hypertension Qualified Code(s): I10 - Essential (primary) hypertension (7) Status post coronary artery stent placement Code(s): Z95.5 - PRESENCE OF CORONARY ANGIOPLASTY IMPLANT AND GRAFT (8) Pleural effusion Code(s): J90 - PLEURAL EFFUSION, NOT ELSEWHERE CLASSIFIED (9) Pulmonary mass Code(s): R91.8 - OTHER NONSPECIFIC ABNORMAL FINDING OF LUNG FIELD Assessment/Plan 02/09/2016 Echo: Severe cLVH, mild-mod LV systolic dysfunction, mod AR, MR, mild BURT 1.7 cm^2, RVSP 38 mmHg 1. Acute metabolic encephelopathy resolved 2. Acute on chronic kidney injury with hyperkalemia improving 3. Chronic diastolic CHF infiltrative cardiomyopathy cannot be excluded 4. CAD post PCI/stent, angina pectoris 5. HTN 6. Hypercholesterolemia 7. Questionable PAF although no clear documentation 8. Anemia 9. Pulmonary masses with R>L pleural effusion, r/o malignancy PLAN: 1. Continue Carvedilol 6.25 qd as hemodynamics tolerate 2. Resume Losartan and diuretics once renal function stabilizes and hyperkalemia resolves 3. Continue ASA 81 qd and Lipitor 80 qd, Zetia was d/cande in office 4. IR guided needle biopsy of pulmonary masses, patient prefers to continue eval as outpatient
--- NOTE | 2016-12-26 16:53 | PN ---
Progress Note, Physician Chief Complaint: Mr Wisdom is without complaint. Denies cp, sob, n/v. Very adamant about wanting to go home. - Current Medication List Current Medications: Active Medications Acetaminophen (Tylenol -) 650 mg PO Q6H PRN PRN Reason: FEVER OR PAIN Aspirin (Asa -) 81 mg PO DAILY [facility] Last Admin: 12/26/16 10:26 Dose: 81 mg Atorvastatin Calcium (Lipitor -) 80 mg PO HS [facility] Last Admin: 12/25/16 22:54 Dose: 80 mg Carvedilol (Coreg -) 6.25 mg PO DAILY [facility] Last Admin: 12/26/16 10:26 Dose: 6.25 mg Heparin Sodium (Porcine) (Heparin -) 5,000 unit SQ BID [facility] Last Admin: 12/26/16 10:26 Dose: 5,000 unit Pantoprazole Sodium (Protonix -) 40 mg PO DAILY [facility] Last Admin: 12/26/16 10:26 Dose: 40 mg Tamsulosin HCl (Flomax -) 0.4 mg PO AM [facility] Last Admin: 12/26/16 06:16 Dose: 0.4 mg - Objective Vital Signs: Vital Signs Temperature 97.2 F L 12/26/16 15:19 Pulse Rate 60 12/26/16 15:19 Respiratory Rate 20 12/26/16 15:19 Blood Pressure 86/44 12/26/16 15:19 O2 Sat by Pulse Oximetry (%) 95 12/25/16 21:00 Constitutional: Yes: No Distress, Calm, Thin Cardiovascular: Yes: Pulse Irregular. No: Gallop, Murmur, Rub Respiratory: Yes: Regular, CTA Bilaterally. No: Rales, Rhonchi, Wheezes Gastrointestinal: Yes: Normal Bowel Sounds, Soft. No: Distention, Tenderness Extremities: Yes: WNL Edema: No Labs: CBC, BMP 12/26/16 06:00 12/26/16 06:00 INR, PTT INR 1.20 (0.82-1.09) H 12/23/16 14:15 Problem List - Problems (1) Kdqcj-xd-tvvkkji kidney injury Code(s): N17.9 - ACUTE KIDNEY FAILURE, UNSPECIFIED N18.9 - CHRONIC KIDNEY DISEASE, UNSPECIFIED (2) Acute metabolic encephalopathy Code(s): G93.41 - METABOLIC ENCEPHALOPATHY (3) Diastolic CHF Code(s): I50.30 - UNSPECIFIED DIASTOLIC (CONGESTIVE) HEART FAILURE Qualifiers : Congestive heart failure chronicity: chronic Qualified Code(s): I50.32 - Chronic diastolic (congestive) heart failure (4) HTN (hypertension) Code(s): I10 - ESSENTIAL (PRIMARY) HYPERTENSION Qualifiers: Hypertension type: essential hypertension Qualified Code(s): I10 - Essential (primary) hypertension (5) Atrial fibrillation Code(s): I48.91 - UNSPECIFIED ATRIAL FIBRILLATION Qualifiers: Atrial fibrillation type: chronic Qualified Code(s): I48.2 - Chronic atrial fibrillation (6) BPH (benign prostatic hyperplasia) Code(s): N40.0 - BENIGN PROSTATIC HYPERPLASIA WITHOUT LOWER URINRY TRACT SYMP (7) Coronary artery disease Code(s): I25.10 - ATHSCL HEART DISEASE OF [place] CORONARY ARTERY W/O ANG PCTRS Qualifiers: Coronary Disease-Associated Artery/Lesion type: [place] artery [place] vs. transplanted heart: [place] heart Associated angina: without angina Qualified Code(s): I25.10 - Atherosclerotic heart disease of [place] coronary artery without angina pectoris (8) HLD (hyperlipidemia) Code(s): E78.5 - HYPERLIPIDEMIA, UNSPECIFIED Qualifiers: Hyperlipidemia type: pure hypercholesterolemia Qualified Code(s): E78.0 - Pure hypercholesterolemia Assessment/Plan (1) Fctjj-al-tdbdaap kidney injury Assessment/Plan: -case d/w nephrology -continue to hold diuretics and losartan -improving -continue observation in hospital Code(s): N17.9 - ACUTE KIDNEY FAILURE, UNSPECIFIED N18.9 - CHRONIC KIDNEY DISEASE, UNSPECIFIED (2) Acute metabolic encephalopathy Assessment/Plan: -resolved Code(s): G93.41 - METABOLIC ENCEPHALOPATHY (3) Diastolic CHF Assessment/Plan: -not in exacerbation -cardiology following -continue to hold diuretic currently Code(s): I50.30 - UNSPECIFIED DIASTOLIC (CONGESTIVE) HEART FAILURE Qualifiers : Congestive heart failure chronicity: chronic Qualified Code(s): I50.32 - Chronic diastolic (congestive) heart failure (4) HTN (hypertension) Assessment/Plan: -currently hypotensive secondary to dehydration -continue coreg for atrial fibrillation -holding lasix and aldactone as above -defer further hydration since asymptomatic and with CHF Code(s): I10 - ESSENTIAL (PRIMARY) HYPERTENSION Qualifiers: Hypertension type: essential hypertension Qualified Code(s): I10 - Essential (primary) hypertension (5) Atrial fibrillation Assessment/Plan: -continue coreg -rate controlled -noted not on anticoagulation Code(s): I48.91 - UNSPECIFIED ATRIAL FIBRILLATION Qualifiers: Atrial fibrillation type: chronic Qualified Code(s): I48.2 - Chronic atrial fibrillation (6) BPH (benign prostatic hyperplasia) Assessment/Plan: -continue flomax Code(s): N40.0 - BENIGN PROSTATIC HYPERPLASIA WITHOUT LOWER URINRY TRACT SYMP (7) Coronary artery disease Assessment/Plan: -quiescent -currently without chest pain -continue coreg and statin Code(s): I25.10 - ATHSCL HEART DISEASE OF [place] CORONARY ARTERY W/O ANG PCTRS Qualifiers: Coronary Disease-Associated Artery/Lesion type: [place] artery [place] vs. transplanted heart: [place] heart Associated angina: without angina Qualified Code(s): I25.10 - Atherosclerotic heart disease of [place] coronary artery without angina pectoris (8) HLD (hyperlipidemia) Assessment/Plan: -continue statin Code(s): E78.5 - HYPERLIPIDEMIA, UNSPECIFIED Qualifiers: Hyperlipidemia type: Pure hypercholesterolemia Qualified Code(s): E78.0 - Pure hypercholesterolemia (9) Lung nodules -CT scan showing bilateral lung nodules -case d/w patient, not interested in having work up in the hospital -case d/w daughter who is HCP, says she does not want any treatment for this if it is malignancy -since patient does not want work up and HCP would not want chemotherapy or radiation therapy would not recommend biopsy at this time or consults Dispo -discharge when stable from nephrology and cardiology standpoint
[2016-12-26] MEDS: ATORVASTATIN CA 80 MG TABLET (FP) PO SCH (21:58)
[2016-12-27 00:06] LABS: A/G RATIO 0.9 (0.7-1.7); ALBUMIN 2.8 g/dL (2.9-4.4); GLOBULIN, TOTAL 3.2 g/dL (2.2-3.9)
[2016-12-27] MEDS ORDERED: PT OWN MED DRAWER 7, Y5N ONE (06:32)
[2016-12-27] MEDS: TAMSULOSIN HCL 0.4 MG CAP.ER.24H (FP) PO SCH (06:33)
[2016-12-27 07:31] LABS: BASOPHIL 0.7 % (0-2.0); EOSINOPHIL 5.8 % (0-4.5); MCH 29.5 pg (25.7-33.7); MCHC 33.4 g/dl (32.0-35.9); MEAN CELL VOLUME 88.3 fl (80-96); MEAN PLT VOLUME 8.2 fl (7.5-11.1); NEUTROPHILS 77.6 % (42.8-82.8); PLATELET COUNT 148 K/MM3 (134-434); RDW 20.2 % (11.9-15.9); WHITE BLOOD COUNT 6.8 K/mm3 (4.0-10.0)
[2016-12-27 08:00] LABS: CALCIUM 8.1 mg/dL (8.5-10.1); CREATININE 1.9 mg/dL (0.7-1.3); MAGNESIUM 2.8 mg/dL (1.8-2.4)
[2016-12-27] MEDS: CARVEDILOL 6.25 MG TABLET (FP) PO SCH (10:27)
[2016-12-27] MEDS: PANTOPRAZOLE 40 MG TABLET (FP) PO SCH (10:27)
[2016-12-27] MEDS: HEPARIN NA (PORCINE) 5,000 UNITS/ML 1ML VIAL SQ SCH ×2 (10:27→21:44)
[2016-12-27] MEDS: ASPIRIN 81 MG CHEWABLE TABLETS PO SCH (10:27)
--- NOTE | 2016-12-27 12:15 | PN ---
Progress Note (short form) - Note Progress Note: Renal Follow up for DARNELL on CKD Pt seen and examined at the bedside no acute complaints no sob, chest pain Vital Signs Temperature 98.6 F 12/27/16 09:00 Pulse Rate 76 12/27/16 09:00 Respiratory Rate 17 12/27/16 09:00 Blood Pressure 116/62 12/27/16 09:00 O2 Sat by Pulse Oximetry (%) 97 12/26/16 21:00 Intake & Output 12/24/16 12/25/16 12/26/16 12/27/16 23:59 23:59 23:59 23:59 Intake Total 1250 1400 630 Output Total 201 400 300 Balance 1250 1199 230 -300 Weight 130 lb 4.8 oz 134 lb 14.4 oz 135 lb 6.4 oz 134 lb 12.8 oz Gen: NAD, awake and alert CVS: RRR, No M/R Lungs: + rales at lung bases Abd: soft NT/ND Ext: No edema, clubbing or cyanosis CBC, BMP 12/27/16 06:00 12/27/16 06:00 Current Medications Acetaminophen (Tylenol -) 650 mg PO Q6H PRN PRN Reason: FEVER OR PAIN Aspirin (Asa -) 81 mg PO DAILY [facility] Last Admin: 12/27/16 10:27 Dose: 81 mg Atorvastatin Calcium (Lipitor -) 80 mg PO HS [facility] Last Admin: 12/26/16 21:58 Dose: 80 mg Carvedilol (Coreg -) 6.25 mg PO DAILY [facility] Last Admin: 12/27/16 10:27 Dose: 6.25 mg Heparin Sodium (Porcine) (Heparin -) 5,000 unit SQ BID [facility] Last Admin: 12/27/16 10:27 Dose: 5,000 unit Pantoprazole Sodium (Protonix -) 40 mg PO DAILY [facility] Last Admin: 12/27/16 10:27 Dose: 40 mg Tamsulosin HCl (Flomax -) 0.4 mg PO AM [facility] Last Admin: 12/27/16 06:33 Dose: 0.4 mg A/p 86 year old gentleman with PMhx of CAD s/p PCI and stenting, CHF, BPH, CKD ( baseline line Cr 1.4?)Hypertension who presented with AMS/Confusion at home and found to have BUN/Cr of 98/2.2. #DARNELL on CKD Urine studies consistent with volume depletion Renal function improving off diuretics Renal function essentially unchanged today defer starting diuretics until tomorrow #CHF (?Amyloid appearance on prior eceho) no overt volume overload at this time US showed b/l effusions CT of chest done Pulmonary eval Abnormal SPEP [place]/Lamda ratio elevated but only slighly so and sometimes can see mild elevation in renal failure consider heme eval Cardiology following #Confusion/AMS CT head negative work up as per primary #Anemia Abnormal SPEP noted Will need Heme eval, likey can be done as outpatient #BPH Continue Flomax Devin Edmondson DO
--- NOTE | 2016-12-27 14:38 | PN ---
Progress Note, Physician Chief Complaint: Mr Wisdom is without complaint. Denies cp, sob, n/v. - Current Medication List Current Medications: Active Medications Acetaminophen (Tylenol -) 650 mg PO Q6H PRN PRN Reason: FEVER OR PAIN Aspirin (Asa -) 81 mg PO DAILY [facility] Last Admin: 12/27/16 10:27 Dose: 81 mg Atorvastatin Calcium (Lipitor -) 80 mg PO HS [facility] Last Admin: 12/26/16 21:58 Dose: 80 mg Carvedilol (Coreg -) 6.25 mg PO DAILY [facility] Last Admin: 12/27/16 10:27 Dose: 6.25 mg Heparin Sodium (Porcine) (Heparin -) 5,000 unit SQ BID [facility] Last Admin: 12/27/16 10:27 Dose: 5,000 unit Pantoprazole Sodium (Protonix -) 40 mg PO DAILY [facility] Last Admin: 12/27/16 10:27 Dose: 40 mg Tamsulosin HCl (Flomax -) 0.4 mg PO AM [facility] Last Admin: 12/27/16 06:33 Dose: 0.4 mg - Objective Vital Signs: Vital Signs Temperature 98.6 F 12/27/16 09:00 Pulse Rate 76 12/27/16 09:00 Respiratory Rate 17 12/27/16 09:00 Blood Pressure 116/62 12/27/16 09:00 O2 Sat by Pulse Oximetry (%) 97 12/27/16 09:00 Constitutional: Yes: Well Nourished, No Distress, Calm Cardiovascular: Yes: Regular Rate and Rhythm. No: Gallop, Murmur, Rub Respiratory: Yes: Regular, CTA Bilaterally. No: Rales, Rhonchi, Wheezes Gastrointestinal: Yes: Normal Bowel Sounds, Soft. No: Distention, Tenderness Extremities: Yes: WNL Edema: No Labs: CBC, BMP 12/27/16 06:00 12/27/16 06:00 INR, PTT INR 1.20 (0.82-1.09) H 12/23/16 14:15 Problem List - Problems (1) Oeewn-nv-yngslwg kidney injury Code(s): N17.9 - ACUTE KIDNEY FAILURE, UNSPECIFIED N18.9 - CHRONIC KIDNEY DISEASE, UNSPECIFIED (2) Acute metabolic encephalopathy Code(s): G93.41 - METABOLIC ENCEPHALOPATHY (3) Diastolic CHF Code(s): I50.30 - UNSPECIFIED DIASTOLIC (CONGESTIVE) HEART FAILURE Qualifiers : Congestive heart failure chronicity: chronic Qualified Code(s): I50.32 - Chronic diastolic (congestive) heart failure (4) HTN (hypertension) Code(s): I10 - ESSENTIAL (PRIMARY) HYPERTENSION Qualifiers: Hypertension type: essential hypertension Qualified Code(s): I10 - Essential (primary) hypertension (5) Atrial fibrillation Code(s): I48.91 - UNSPECIFIED ATRIAL FIBRILLATION Qualifiers: Atrial fibrillation type: chronic Qualified Code(s): I48.2 - Chronic atrial fibrillation (6) BPH (benign prostatic hyperplasia) Code(s): N40.0 - BENIGN PROSTATIC HYPERPLASIA WITHOUT LOWER URINRY TRACT SYMP (7) Coronary artery disease Code(s): I25.10 - ATHSCL HEART DISEASE OF [place] CORONARY ARTERY W/O ANG PCTRS Qualifiers: Coronary Disease-Associated Artery/Lesion type: [place] artery [place] vs. transplanted heart: [place] heart Associated angina: without angina Qualified Code(s): I25.10 - Atherosclerotic heart disease of [place] coronary artery without angina pectoris (8) HLD (hyperlipidemia) Code(s): E78.5 - HYPERLIPIDEMIA, UNSPECIFIED Qualifiers: Hyperlipidemia type: pure hypercholesterolemia Qualified Code(s): E78.0 - Pure hypercholesterolemia Assessment/Plan (1) Yypgu-zi-lsyitba kidney injury Assessment/Plan: -nephrology following and note reviewed -continue to hold diuretics -creatinine increased today Code(s): N17.9 - ACUTE KIDNEY FAILURE, UNSPECIFIED N18.9 - CHRONIC KIDNEY DISEASE, UNSPECIFIED (2) Acute metabolic encephalopathy Assessment/Plan: -resolved Code(s): G93.41 - METABOLIC ENCEPHALOPATHY (3) Diastolic CHF Assessment/Plan: -not in exacerbation -cardiology following -continue to hold diuretic currently Code(s): I50.30 - UNSPECIFIED DIASTOLIC (CONGESTIVE) HEART FAILURE Qualifiers : Congestive heart failure chronicity: chronic Qualified Code(s): I50.32 - Chronic diastolic (congestive) heart failure (4) HTN (hypertension) Assessment/Plan: -well controlled today -continue coreg for atrial fibrillation -holding lasix and aldactone as above Code(s): I10 - ESSENTIAL (PRIMARY) HYPERTENSION Qualifiers: Hypertension type: essential hypertension Qualified Code(s): I10 - Essential (primary) hypertension (5) Atrial fibrillation Assessment/Plan: -continue coreg -rate controlled -noted not on anticoagulation Code(s): I48.91 - UNSPECIFIED ATRIAL FIBRILLATION Qualifiers: Atrial fibrillation type: chronic Qualified Code(s): I48.2 - Chronic atrial fibrillation (6) BPH (benign prostatic hyperplasia) Assessment/Plan: -continue flomax Code(s): N40.0 - BENIGN PROSTATIC HYPERPLASIA WITHOUT LOWER URINRY TRACT SYMP (7) Coronary artery disease Assessment/Plan: -quiescent -currently without chest pain -continue coreg and statin Code(s): I25.10 - ATHSCL HEART DISEASE OF [place] CORONARY ARTERY W/O ANG PCTRS Qualifiers: Coronary Disease-Associated Artery/Lesion type: [place] artery [place] vs. transplanted heart: [place] heart Associated angina: without angina Qualified Code(s): I25.10 - Atherosclerotic heart disease of [place] coronary artery without angina pectoris (8) HLD (hyperlipidemia) Assessment/Plan: -continue statin Code(s): E78.5 - HYPERLIPIDEMIA, UNSPECIFIED Qualifiers: Hyperlipidemia type: Pure hypercholesterolemia Qualified Code(s): E78.0 - Pure hypercholesterolemia (9) Lung nodules -CT scan showing bilateral lung nodules -patient and healthcare proxy are currently deferring further workup Dispo -discharge when stable from nephrology and cardiology standpoint
[2016-12-27] MEDS: ATORVASTATIN CA 80 MG TABLET (FP) PO SCH (21:45)
[2016-12-28] MEDS: TAMSULOSIN HCL 0.4 MG CAP.ER.24H (FP) PO SCH (06:11)
[2016-12-28] MEDS ORDERED: PT OWN MED DRAWER 7, Y5N ONE (06:34)
[2016-12-28 08:15] LABS: CALCIUM 8.5 mg/dL (8.5-10.1); CREATININE 1.9 mg/dL (0.7-1.3)
[2016-12-28] MEDS: ASPIRIN 81 MG CHEWABLE TABLETS PO SCH (09:57)
[2016-12-28] MEDS: HEPARIN NA (PORCINE) 5,000 UNITS/ML 1ML VIAL SQ SCH (09:57)
[2016-12-28] MEDS: CARVEDILOL 6.25 MG TABLET (FP) PO SCH (09:57)
[2016-12-28] MEDS: PANTOPRAZOLE 40 MG TABLET (FP) PO SCH (09:57)
--- NOTE | 2016-12-28 12:01 | PN ---
Progress Note (short form) - Note Progress Note: Renal Follow up for DARNELL on CKD Pt seen and examined at the bedside on NC O2 denies sob or chest pain Vital Signs Temperature 97.5 F L 12/28/16 02:00 Pulse Rate 63 12/28/16 02:00 Respiratory Rate 20 12/28/16 02:00 Blood Pressure 116/60 12/28/16 02:00 O2 Sat by Pulse Oximetry (%) 97 12/27/16 19:54 Intake & Output 12/25/16 12/26/16 12/27/16 12/28/16 23:59 23:59 23:59 23:59 Intake Total 1400 630 700 Output Total 201 400 600 Balance 1199 230 100 Weight 134 lb 14.4 oz 135 lb 6.4 oz 134 lb 12.8 oz 134 lb 9 oz Gen: NAD, awake and alert CVS: RRR, No M/R Lungs: + rales at lung bases Abd: soft NT/ND Ext: No edema, clubbing or cyanosis CBC, BMP 12/27/16 06:00 12/28/16 06:25 Current Medications Acetaminophen (Tylenol -) 650 mg PO Q6H PRN PRN Reason: FEVER OR PAIN Aspirin (Asa -) 81 mg PO DAILY [facility] Last Admin: 12/28/16 09:57 Dose: 81 mg Atorvastatin Calcium (Lipitor -) 80 mg PO HS [facility] Last Admin: 12/27/16 21:45 Dose: 80 mg Carvedilol (Coreg -) 6.25 mg PO DAILY [facility] Last Admin: 12/28/16 09:57 Dose: 6.25 mg Heparin Sodium (Porcine) (Heparin -) 5,000 unit SQ BID [facility] Last Admin: 12/28/16 09:57 Dose: 5,000 unit Pantoprazole Sodium (Protonix -) 40 mg PO DAILY [facility] Last Admin: 12/28/16 09:57 Dose: 40 mg Tamsulosin HCl (Flomax -) 0.4 mg PO AM [facility] Last Admin: 12/28/16 06:11 Dose: 0.4 mg A/p 86 year old gentleman with PMhx of CAD s/p PCI and stenting, CHF, BPH, CKD ( baseline line Cr 1.4?)Hypertension who presented with AMS/Confusion at home and found to have BUN/Cr of 98/2.2. #DARNELL on CKD DARNELL secondary to volume depletion Renal function improved but pt with some degree of CKD (Cr was 1.5 last fall) can resume Lasix 40mg Once daily at home but would hold off starting ARB, Aldactone until repeat labs done as outpatient To follow up in the office for CKD management SPEP was abnormal and [place]/Lamda ratio elevated -> Heme eval as outpatient #CHF (?Amyloid appearance on prior eceho) no overt volume overload at this time US showed b/l effusions CT of chest done Pulmonary eval Abnormal SPEP [place]/Lamda ratio elevated but only slighly so and sometimes can see mild elevation in renal failure consider heme eval as outpatient Cardiology following #Anemia Abnormal SPEP noted Will need Heme eval, an be done as outpatient #BPH Continue Kevin Edmondson DO
[2016-12-28 12:31] VITALS: BP 107/50; PULSE 68; TEMP 97.6
--- NOTE | 2016-12-28 12:51 | PN ---
Progress Note, Physician History of Present Illness: Mental status at baseline, denies chest pain or dyspnea. - Current Medication List Current Medications: Active Medications Acetaminophen (Tylenol -) 650 mg PO Q6H PRN PRN Reason: FEVER OR PAIN Aspirin (Asa -) 81 mg PO DAILY [facility] Last Admin: 12/28/16 09:57 Dose: 81 mg Atorvastatin Calcium (Lipitor -) 80 mg PO HS [facility] Last Admin: 12/27/16 21:45 Dose: 80 mg Carvedilol (Coreg -) 6.25 mg PO DAILY [facility] Last Admin: 12/28/16 09:57 Dose: 6.25 mg Heparin Sodium (Porcine) (Heparin -) 5,000 unit SQ BID [facility] Last Admin: 12/28/16 09:57 Dose: 5,000 unit Pantoprazole Sodium (Protonix -) 40 mg PO DAILY [facility] Last Admin: 12/28/16 09:57 Dose: 40 mg Tamsulosin HCl (Flomax -) 0.4 mg PO AM [facility] Last Admin: 12/28/16 06:11 Dose: 0.4 mg - Objective Vital Signs: Vital Signs Temperature 97.6 F 12/28/16 10:00 Pulse Rate 68 12/28/16 10:00 Respiratory Rate 20 12/28/16 10:00 Blood Pressure 107/50 12/28/16 10:00 O2 Sat by Pulse Oximetry (%) 97 12/27/16 19:54 Constitutional: Yes: No Distress, Calm Neck: Yes: Supple Cardiovascular: Yes: Regular Rate and Rhythm Respiratory: Yes: Regular, Diminished Gastrointestinal: Yes: Normal Bowel Sounds, Soft Edema: No Labs: CBC, BMP 12/27/16 06:00 12/28/16 06:25 INR, PTT INR 1.20 (0.82-1.09) H 12/23/16 14:15 Problem List - Problems (1) Acute metabolic encephalopathy Code(s): G93.41 - METABOLIC ENCEPHALOPATHY (2) Ueisq-zy-umesraa kidney injury Code(s): N17.9 - ACUTE KIDNEY FAILURE, UNSPECIFIED N18.9 - CHRONIC KIDNEY DISEASE, UNSPECIFIED (3) Coronary artery disease Code(s): I25.10 - ATHSCL HEART DISEASE OF [place] CORONARY ARTERY W/O ANG PCTRS Qualifiers: Coronary Disease-Associated Artery/Lesion type: [place] artery [place] vs. transplanted heart: [place] heart Associated angina: without angina Qualified Code(s): I25.10 - Atherosclerotic heart disease of [place] coronary artery without angina pectoris (4) Diastolic CHF Code(s): I50.30 - UNSPECIFIED DIASTOLIC (CONGESTIVE) HEART FAILURE Qualifiers : Congestive heart failure chronicity: chronic Qualified Code(s): I50.32 - Chronic diastolic (congestive) heart failure (5) HLD (hyperlipidemia) Code(s): E78.5 - HYPERLIPIDEMIA, UNSPECIFIED Qualifiers: Hyperlipidemia type: pure hypercholesterolemia Qualified Code(s): E78.0 - Pure hypercholesterolemia (6) HTN (hypertension) Code(s): I10 - ESSENTIAL (PRIMARY) HYPERTENSION Qualifiers: Hypertension type: essential hypertension Qualified Code(s): I10 - Essential (primary) hypertension (7) Status post coronary artery stent placement Code(s): Z95.5 - PRESENCE OF CORONARY ANGIOPLASTY IMPLANT AND GRAFT (8) Pleural effusion Code(s): J90 - PLEURAL EFFUSION, NOT ELSEWHERE CLASSIFIED (9) Pulmonary mass Code(s): R91.8 - OTHER NONSPECIFIC ABNORMAL FINDING OF LUNG FIELD Assessment/Plan 02/09/2016 Echo: Severe cLVH, mild-mod LV systolic dysfunction, mod AR, MR, mild BURT 1.7 cm^2, RVSP 38 mmHg 1. Acute metabolic encephelopathy resolved 2. Acute on chronic kidney injury with hyperkalemia improved 3. Chronic diastolic CHF infiltrative cardiomyopathy cannot be excluded 4. CAD post PCI/stent, angina pectoris 5. HTN 6. Hypercholesterolemia 7. Questionable PAF although no clear documentation 8. Anemia 9. Pulmonary masses with R>L pleural effusion, r/o malignancy PLAN: 1. Continue Carvedilol 6.25 qd as hemodynamics tolerate 2. Resume Losartan and diuretics once renal function stabilizes 3. Continue ASA 81 qd and Lipitor 80 qd, Zetia was d/cande in office 4. Patient and healthcare proxy are currently deferring further workup of pulm masses 5. May be d/cande from CV standpoint with f/u in office
[2016-12-29 00:06] LABS: ALBUMIN FOR UPE 25.2 % (.); GAMMA GLOBULIN % 32.2 % (.); M-SPIKE, % Not Observed % (Not Observed)
--- NOTE | 2017-01-09 22:24 | DS ---
Physical Examination Vital Signs: Vital Signs Temperature 97.6 F 12/28/16 10:00 Pulse Rate 68 12/28/16 10:00 Respiratory Rate 20 12/28/16 10:00 Blood Pressure 107/50 12/28/16 10:00 O2 Sat by Pulse Oximetry (%) 97 12/27/16 19:54 Constitutional: Yes: Well Nourished, No Distress, Calm Cardiovascular: Yes: Regular Rate and Rhythm. No: Gallop, Murmur, Rub Respiratory: Yes: Regular, CTA Bilaterally. No: Rales, Rhonchi, Wheezes Gastrointestinal: Yes: Normal Bowel Sounds, Soft. No: Distention, Tenderness Extremities: Yes: WNL Edema: No Labs: CBC, BMP 12/27/16 06:00 12/28/16 06:25 Discharge Summary Reason For Visit: HYPERCALEMIA,COPD AMS Hospital Course: (1) Zoxmh-jk-kcgrfbm kidney injury Code(s): N17.9 - ACUTE KIDNEY FAILURE, UNSPECIFIED N18.9 - CHRONIC KIDNEY DISEASE, UNSPECIFIED (2) Acute metabolic encephalopathy Code(s): G93.41 - METABOLIC ENCEPHALOPATHY (3) Diastolic CHF Code(s): I50.30 - UNSPECIFIED DIASTOLIC (CONGESTIVE) HEART FAILURE Qualifiers : Congestive heart failure chronicity: chronic Qualified Code(s): I50.32 - Chronic diastolic (congestive) heart failure (4) HTN (hypertension) Code(s): I10 - ESSENTIAL (PRIMARY) HYPERTENSION Qualifiers: Hypertension type: essential hypertension Qualified Code(s): I10 - Essential (primary) hypertension (5) Atrial fibrillation Code(s): I48.91 - UNSPECIFIED ATRIAL FIBRILLATION Qualifiers: Atrial fibrillation type: chronic Qualified Code(s): I48.2 - Chronic atrial fibrillation (6) BPH (benign prostatic hyperplasia) Code(s): N40.0 - BENIGN PROSTATIC HYPERPLASIA WITHOUT LOWER URINRY TRACT SYMP (7) Coronary artery disease Code(s): I25.10 - ATHSCL HEART DISEASE OF [place] CORONARY ARTERY W/O ANG PCTRS Qualifiers: Coronary Disease-Associated Artery/Lesion type: [place] artery [place] vs. transplanted heart: [place] heart Associated angina: without angina Qualified Code(s): I25.10 - Atherosclerotic heart disease of [place] coronary artery without angina pectoris (8) HLD (hyperlipidemia) Code(s): E78.5 - HYPERLIPIDEMIA, UNSPECIFIED Qualifiers: Hyperlipidemia type: pure hypercholesterolemia Qualified Code(s): E78.0 - Pure hypercholesterolemia Mr Wisdom is a pleasant 86 year old male who came in with metabolic encephalopathy secondary to DARNELL on CKD. He was admitted to the hospital. He was diuresed with IVF. Nephrology was consulted and worked up his renal function. It was found to be secondary to dehydration and responded to fluid resuscitation. His mental status returned to baseline. He is safe for discharge home with [facility] 33 minutes spent in preparation of this discharge Condition: Stable - Instructions Diet, Activity, Other Instructions: resume previous diet and activity Referrals: Yaa Mackey MD [Staff Physician] - Jose Owens MD [Primary Care Provider] - Devin Edmondson MD [Staff Physician] - Disposition: VNS/HOME HEALTH CARE - Home Medications Comprehensive Discharge Medication List: Ambulatory Orders Tamsulosin HCl 0.4 mg PO AM 11/04/12 Atorvastatin Ca [Lipitor] 80 mg PO HS 11/18/12 Carvedilol [Coreg -] 6.25 mg PO DAILY 06/09/16 Aspirin [ASA -] 81 mg PO DAILY 12/23/16 Furosemide [Lasix] 40 mg PO DAILY #30 tablet 12/28/16
== END 2016-12-28 14:29 | disposition home health service (06) | DRG 682 ==
LOC: JER 13:24 → JERBED 16:46 → UNDOADMIN 16:55 → JERBED 20:42 → J7W 20:42
PROVIDERS: ADMIT Internal Medicine; ATTEND Internal Medicine
DX: N17.9 Acute kidney failure, unspecified (principal); G93.41 Metabolic encephalopathy; I13.0 Hypertensive heart and chronic kidney disease with heart failure and stage 1 through stage 4 chronic kidney disease, or unspecified chronic kidney disease; I50.32 Chronic diastolic (congestive) heart failure; N18.9 Chronic kidney disease, unspecified; I25.119 Atherosclerotic heart disease of native coronary artery with unspecified angina pectoris; Z95.5 Presence of coronary angioplasty implant and graft; E78.00 Pure hypercholesterolemia, unspecified; I48.0 Paroxysmal atrial fibrillation; D64.9 Anemia, unspecified
CPT/HCPCS: 36415; 70450-TC; 71020-TC; 71250-TC; 76775-TC; 76856-TC; 80048; 80053; 81003; 81015; 82140; 82570; 83690; 83735; 83880; 83883; 84100; 84155; 84156; 84157; 84165; 84300; 84540; 85025; 85610; 93005; 93010; 97116-GP; 97161-GP; 99284-25; J1644

== ENCOUNTER 2017-01-28 11:44 | Inpatient (IN) | payer BC, OTHER ==
--- NOTE | 2017-01-28 13:22 | PDOC ---
History of Present Illness - General Chief Complaint: Altered Mental Status Stated Complaint: PCP SENT, ALTERED MENTAL STATE Time Seen by Provider: 01/28/17 12:16 History Source: Patient, Family - History of Present Illness Associated Symptoms: denies: cough, fever/chills, headaches, nausea/vomiting, shortness of breath, syncope Past History - Past Medical History Allergies/Adverse Reactions: Allergies Allergy/AdvReac Type Severity Reaction Status Date / Time No Known Drug Allergies Allergy Verified 01/28/17 11:54 Home Medications: Ambulatory Orders Tamsulosin HCl 0.4 mg PO AM 11/04/12 Atorvastatin Ca [Lipitor] 80 mg PO HS 11/18/12 Carvedilol [Coreg -] 6.25 mg PO DAILY 06/09/16 Furosemide [Lasix] 40 mg PO DAILY #30 tablet 12/28/16 Apixaban [Eliquis] 2.5 mg PO BID 01/28/17 Anemia: No Asthma: No Cancer: No Cardiac Disorders: Yes (chf) CVA: No COPD: No CHF: Yes DVT: No Dementia: No Diabetes: No Dialysis: No GI Disorders: No Disorders: Yes (ENLARGED PROSTATE) HTN: Yes Hypercholesterolemia: Yes Liver Disease: No Psychiatric Problems: Yes (anxiety) Suicide Attempt (Hx): No Seizures: No Thyroid Disease: No - Surgical History Abdominal Surgery: No Appendectomy: No Cardiac Surgery: Yes (Stent X1) Cholecystectomy: No Lung Surgery: No Neurologic Surgery: No Orthopedic Surgery: Yes (T.L. KNEE) - Immunization History Immunization Up to Date: Yes - Psycho/Social/Smoking Cessation Hx Anxiety: No Suicidal Ideation: No Smoking Status: No Smoking History: Never smoked Have you smoked in the past 12 months: No Number of Cigarettes Smoked Daily: 0 Information on smoking cessation initiated: No Hx Alcohol Use: No Drug/Substance Use Hx: No Substance Use Type: None Hx Substance Use Treatment: No Review of Systems - Review of Systems Constitutional: No: Chills, Fever Respiratory: No: Cough, Shortness of Breath Cardiac (ROS): No: Chest Pain ABD/GI: No: Constipated, Diarrhea, Nausea, Vomiting, Abdominal cramping : No: Dysuria Neurological: No: Headache, Dizziness *Physical Exam - Vital Signs Last Vital Signs Temp Pulse Resp BP Pulse Ox 97.2 F L 60 18 97/47 96 01/28/17 11:50 01/28/17 11:50 01/28/17 11:50 01/28/17 11:50 01/28/17 11:50 - Physical Exam General Appearance: Yes: Appropriately Dressed. No: Apparent Distress HEENT: positive: Normal Voice Neck: positive: Supple Respiratory/Chest: positive: Lungs Clear, Normal Breath Sounds. negative: Respiratory Distress Cardiovascular: positive: Regular Rate, S1, S2 Gastrointestinal/Abdominal: positive: Soft. negative: Tender Integumentary: positive: Dry, Warm Neurologic: positive: Fully Oriented (to place and people only), Alert, Normal Mood/Affect, Motor Strength 5/5, Finger to Nose. negative: Facial Droop ED Treatment Course - LABORATORY CBC & Chemistry Diagram: 01/28/17 13:10 01/28/17 13:10 - RADIOLOGY Radiology Studies Ordered: Category Date Time Status HEAD CT WITHOUT CONTRAST [CT] Stat CT Scan 01/28/17 13:18 Ordered CHEST X-RAY PORTABLE* [RAD] Stat Radiology 01/28/17 12:55 Taken Medical Decision Making - Medical Decision Making 01/28/17 13:20 Patient is an 86-year-old male with history of HTN, CAD, CHF, AFIB on eliquis, BPH presenting with altered mental status as per family. Daughter reports that this has been going on for a long time where patient intermittently gets confused and stays in bed all day. Patient did have a fall a week ago, but had a negative head CT as arranged by his primary care physician. Patient was also admitted to [facility] several weeks ago for same and dx w/ metabolic encephalopathy w/ DARNELL. Patient able to give history and denies [place], dizziness, focal weakness, CP, SOB, abd pain, change in BM or dysuria. Patient well- appearing and stable, A&O x 2, which is not patient's baseline per family, rest of exam unremarkable. Dr. Swain at bedside and wants patient admitted pending labs and head CT. 01/28/17 15:20 *DC/Admit/Observation/Transfer Diagnosis at time of Disposition: Mental status change Qualifiers: Altered mental status type: unspecified Qualified Code(s): R41.82 - Altered mental status, unspecified - Discharge Dispostion Condition at time of disposition: Stable Admit: Yes
[2017-01-28 13:47] LABS: ALBUMIN 2.7 g/dl (3.4-5.0); CALCIUM 8.1 mg/dL (8.5-10.1); CREATININE 2.1 mg/dL (0.7-1.3); TOT PROT 6.1 g/dl (6.4-8.2)
[2017-01-28 13:50] LABS: TROPONIN I 0.18 ng/ml (0.00-0.05)
[2017-01-28 14:18] LABS: URINE APPEARANCE CLEAR; URINE BILIRUBIN NEGATIVE (NEGATIVE); URINE COLOR LTYELLOW; URINE GLUCOSE (UA) NEGATIVE (NEGATIVE); URINE KETONE NEGATIVE (NEGATIVE); URINE LEUK ESTERASE NEGATIVE (NEGATIVE); URINE NITRITE NEGATIVE (NEGATIVE); URINE PROTEIN NEGATIVE (NEGATIVE); URINE UROBILINOGEN NEGATIVE E.U./dl (0.2-1.0)
[2017-01-28 14:31] LABS: URINE BLOOD 1+ (NEGATIVE)
[2017-01-28 14:41] LABS: URINE BACTERIA RARE /hpf (NONE SEEN); URINE HYALINE CAST 23 /lpf; URINE MUCUS RARE; URINE RBC <1 /hpf (0-3); URINE WBC 2 /hpf (3-5)
--- NOTE | 2017-01-28 14:54 | EKG ---
Test Reason : Blood Pressure : / mmHG Vent. Rate : 069 BPM Atrial Rate : 202 BPM P-R Int : 000 ms QRS Dur : 100 ms QT Int : 432 ms P-R-T Axes : 000 063 229 degrees QTc Int : 462 ms ATRIAL FIBRILLATION WITH A COMPETING JUNCTIONAL PACEMAKER LOW VOLTAGE QRS CANNOT RULE OUT ANTERIOR INFARCT (CITED ON OR BEFORE 23-DEC-2016) ABNORMAL ECG WHEN COMPARED WITH ECG OF 23-DEC-2016 17:04, ATRIAL FIBRILLATION HAS REPLACED SINUS RHYTHM Confirmed by GREGG SALAZAR MD ([id number]) on 01/28/2017 2:54:34 PM Referred By: Confirmed By:GREGG SALAZAR MD
[2017-01-28] MEDS ORDERED: ONDANSETRON 4 MG/2 ML VIAL IVPB PRN (16:05)
--- NOTE | 2017-01-28 16:08 | HP ---
Admitting History and Physical - Primary Care Physician PCP: Jose Owens - Admission Chief Complaint: I feel fine History of Present Illness: Mr Wisdom is a pleasant 86 year old male who was brought in by his daughter with concern about dementia. Mr Wisdom says he is feeling fine and complains only of pain in his back where he has a sore. However he is very confused and cannot obtain a clear history from him. Per his daughter, when he left the hospital he was fine and doing well. However over the past week he has become lethargic. He started eating and drinking less, and over the past 48 hours has stopped eating and drinking altogether. She noted that his abdomen was becoming swollen, however his last bowel movement was yesterday. She took him to the office and was sent over here for admission. History Source: Patient, Family Member Limitations to Obtaining History: Clinical Condition - Past Medical History Cardiovascular: Yes: CAD, CHF, HTN, Hyperlipdemia Renal/: Yes: BPH - Past Surgical History Past Surgical History: Yes: Stent, TURP - Smoking History Smoking history: Never smoked Have you smoked in the past 12 months: No Aproximately how many cigarettes per day: 0 - Alcohol/Substance Use Hx Alcohol Use: No History of Substance Use: reports: None - Social History Usual Living Arrangement: Yes: With Spouse ADL: Independent History of Recent Travel: No Home Medications - Allergies Allergies/Adverse Reactions: Allergies Allergy/AdvReac Type Severity Reaction Status Date / Time No Known Drug Allergies Allergy Verified 01/28/17 11:54 - Home Medications Home Medications: Ambulatory Orders Tamsulosin HCl 0.4 mg PO AM 11/04/12 Atorvastatin Ca [Lipitor] 80 mg PO HS 11/18/12 Carvedilol [Coreg -] 6.25 mg PO DAILY 06/09/16 Furosemide [Lasix] 40 mg PO DAILY #30 tablet 12/28/16 Apixaban [Eliquis] 2.5 mg PO BID 01/28/17 Family Disease History - Family Disease History Family Disease History: Other: Father (unknown condition) Review of Systems Unable to obtain ROS, reason: encephalopathy Physical Examination Vital Signs: Vital Signs Temperature 97.2 F L 01/28/17 11:50 Pulse Rate 65 01/28/17 16:00 Respiratory Rate 17 01/28/17 16:00 Blood Pressure 108/60 01/28/17 16:00 O2 Sat by Pulse Oximetry (%) 98 01/28/17 16:00 Constitutional: Yes: No Distress, Calm Eyes: Yes: Conjunctiva Clear, EOM Intact HENT: Yes: Atraumatic, Normocephalic Cardiovascular: Yes: Regular Rate and Rhythm. No: Gallop, Murmur, Rub Respiratory: Yes: Regular, CTA Bilaterally. No: Rales, Rhonchi, Wheezes Gastrointestinal: Yes: Soft, Distention, Hypoactive Bowel Sounds. No: Tenderness Extremities: Yes: WNL Edema: No Labs: Laboratory Results - last 24 hr 01/28/17 01/28/17 01/28/17 12:55 13:10 13:10 WBC 7.3 RBC 3.68 L Hgb 11.1 L Hct 33.6 L MCV 91.3 MCHC 33.0 RDW 19.9 H Plt Count 176 MPV 8.7 Neutrophils % 81.2 Lymphocytes % 6.8 L Monocytes % 8.7 Eosinophils % 2.4 Basophils % 0.9 Sodium 139 Potassium 4.6 Chloride 105 Carbon Dioxide 23 Anion Gap 11 BUN 80 H D Creatinine 2.1 H Creat Clearance w eGFR 29.95 Random Glucose 98 Calcium 8.1 L Total Bilirubin 1.0 AST 32 D ALT 35 D Alkaline Phosphatase 135 H Creatine Kinase 186 Creatine Kinase Index 3.2 CK-MB (CK-2) 5.933 H CK-MB (CK-2) Rel Index Troponin I 0.18 H D Total Protein 6.1 L Albumin 2.7 L Lipase 73 Urine Color Ltyellow Urine Appearance Clear Urine pH 5.0 Ur Specific [place] 1.011 Urine Protein Negative Urine Glucose (UA) Negative Urine Ketones Negative Urine Blood 1+ H Urine Nitrite Negative Urine Bilirubin Negative Urine Urobilinogen Negative Ur Leukocyte Esterase Negative Urine RBC <1 Urine WBC 2 Ur Epithelial Cells Rare Urine Bacteria Rare Hyaline Casts 23 Urine Mucus Rare 01/28/17 13:10 WBC RBC Hgb Hct MCV MCHC RDW Plt Count MPV Neutrophils % Lymphocytes % Monocytes % Eosinophils % Basophils % Sodium Potassium Chloride Carbon Dioxide Anion Gap BUN Creatinine Creat Clearance w eGFR Random Glucose Calcium Total Bilirubin AST ALT Alkaline Phosphatase Creatine Kinase Creatine Kinase Index CK-MB (CK-2) CK-MB (CK-2) Rel Index Cancelled Troponin I Total Protein Albumin Lipase Urine Color Urine Appearance Urine pH Ur Specific [place] Urine Protein Urine Glucose (UA) Urine Ketones Urine Blood Urine Nitrite Urine Bilirubin Urine Urobilinogen Ur Leukocyte Esterase Urine RBC Urine WBC Ur Epithelial Cells Urine Bacteria Hyaline Casts Urine Mucus Imaging - Results Chest X-ray: Report Reviewed, Image Reviewed Cat Scan: Report Reviewed EKG: Report Reviewed, Image Reviewed Problem List - Problems (1) Acute metabolic encephalopathy Assessment/Plan: -patient presents with AMS -mot likely secondary to uremia and dehydration -admit -hold lasix -gentle hydration -monitor for improvement -currently does not appear infectious, will hold on antibiotics -check lactic acid since with abdominal distention Code(s): G93.41 - METABOLIC ENCEPHALOPATHY (2) [id number] kidney injury Assessment/Plan: -BUN elevated above normal -hold lasix -gentle hydration -monitor Code(s): N17.9 - ACUTE KIDNEY FAILURE, UNSPECIFIED N18.9 - CHRONIC KIDNEY DISEASE, UNSPECIFIED (3) Elevated troponin Assessment/Plan: -troponin 0.18 -consult cardiology -cardiac enzymes x3 Code(s): R79.89 - OTHER SPECIFIED ABNORMAL FINDINGS OF BLOOD CHEMISTRY (4) Atrial fibrillation Assessment/Plan: -continue eliquis and coreg Code(s): I48.91 - UNSPECIFIED ATRIAL FIBRILLATION Qualifiers: Atrial fibrillation type: chronic Qualified Code(s): I48.2 - Chronic atrial fibrillation (5) BPH (benign prostatic hyperplasia) Assessment/Plan: -continue flomax Code(s): N40.0 - BENIGN PROSTATIC HYPERPLASIA WITHOUT LOWER URINRY TRACT SYMP (6) CHF (congestive heart failure) Assessment/Plan: -not in exacerbation -hold lasix currently Code(s): I50.9 - HEART FAILURE, UNSPECIFIED Qualifiers: Congestive heart failure type: diastolic Congestive heart failure chronicity: chronic Qualified Code(s): I50.32 - Chronic diastolic ( congestive) heart failure (7) Coronary artery disease Assessment/Plan: -cardiology consult -follow up troponins Code(s): I25.10 - ATHSCL HEART DISEASE OF [place] CORONARY ARTERY W/O ANG PCTRS Qualifiers: Coronary Disease-Associated Artery/Lesion type: [place] artery [place] vs. transplanted heart: [place] heart Associated angina: without angina Qualified Code(s): I25.10 - Atherosclerotic heart disease of [place] coronary artery without angina pectoris (8) HLD (hyperlipidemia) Assessment/Plan: -continue statin Code(s): E78.5 - HYPERLIPIDEMIA, UNSPECIFIED Qualifiers: Hyperlipidemia type: pure hypercholesterolemia (9) HTN (hypertension) Assessment/Plan: -low normal currently -hydration with IVF Code(s): I10 - ESSENTIAL (PRIMARY) HYPERTENSION Qualifiers: Hypertension type: essential hypertension Qualified Code(s): I10 - Essential (primary) hypertension (10) Abdominal distension Assessment/Plan: -check lactic acid -obtain abdominal KUB Code(s): R14.0 - ABDOMINAL DISTENSION (GASEOUS)
[2017-01-28 16:28] LABS: WHITE BLOOD COUNT 7.3 K/mm3 (4.0-10.0)
[2017-01-28 16:29] LABS: BASOPHIL 0.9 % (0-2.0); EOSINOPHIL 2.4 % (0-4.5); MCH 30.1 pg (25.7-33.7); MEAN CELL VOLUME 91.3 fl (80-96); MEAN PLT VOLUME 8.7 fl (7.5-11.1); NEUTROPHILS 81.2 % (42.8-82.8); PLATELET COUNT 176 K/MM3 (134-434); RDW 19.9 % (11.9-15.9)
[2017-01-28 18:23] VITALS: BMI 16.9
[2017-01-28] MEDS: SODIUM CHLORIDE 1,000 ML IV SCH (20:04)
[2017-01-28 21:16] LABS: TROPONIN I 0.19 ng/ml (0.00-0.05)
[2017-01-28] MEDS ORDERED: PT OWN MED DRAWER 7, Y5N ONE ×2 (21:52→22:54)
[2017-01-28] MEDS: DOCUSATE SODIUM 100 MG CAPSULE (FP) PO SCH (22:04)
[2017-01-28] MEDS: ATORVASTATIN CA 80 MG TABLET (FP) PO SCH (22:04)
[2017-01-28] MEDS: APIXABAN 2.5 MG TABLET PO SCH (22:59)
[2017-01-29] MEDS ORDERED: PT OWN MED DRAWER 7, Y5N ONE ×3 (05:33→21:19)
[2017-01-29] MEDS: TAMSULOSIN HCL 0.4 MG CAP.ER.24H (FP) PO SCH (06:26)
[2017-01-29 07:24] LABS: BASOPHIL 0.7 % (0-2.0); EOSINOPHIL 2.7 % (0-4.5); MCH 29.2 pg (25.7-33.7); MCHC 32.2 g/dl (32.0-35.9); MEAN CELL VOLUME 90.9 fl (80-96); MEAN PLT VOLUME 8.4 fl (7.5-11.1); NEUTROPHILS 81.4 % (42.8-82.8); PLATELET COUNT 164 K/MM3 (134-434); RDW 19.5 % (11.9-15.9); WHITE BLOOD COUNT 8.1 K/mm3 (4.0-10.0)
[2017-01-29 07:48] LABS: CALCIUM 8.1 mg/dL (8.5-10.1); CREATININE 2.1 mg/dL (0.7-1.3); PHOSPHOROUS 4.6 mg/dL (2.5-4.9)
[2017-01-29] MEDS: APIXABAN 2.5 MG TABLET PO SCH ×2 (09:17→22:23)
[2017-01-29] MEDS: DOCUSATE SODIUM 100 MG CAPSULE (FP) PO SCH ×2 (09:17→22:23)
[2017-01-29] MEDS: CARVEDILOL 6.25 MG TABLET (FP) PO SCH (09:17)
[2017-01-29] MEDS: POLYETHYLENE GLYCOL 3350 119 GM BTL PO SCH (09:17)
--- NOTE | 2017-01-29 09:58 | PN ---
Progress Note (short form) - Note Progress Note: Patient seen and examined. Chart reviewed at length. Currently awake and alert. Denies new chest discomfort or dyspnea. Labs and physician notes reviewed. Selected Entries 01/29/17 01/29/17 05:58 06:00 Temperature 97.3 F L Pulse Rate 83 Respiratory 20 Rate Blood Pressure 94/50 Weight 140 lb 1.6 oz Laboratory Tests 01/28/17 01/29/17 01/29/17 20:20 05:35 05:35 WBC 8.1 Hgb 10.9 L Hct 33.9 L Plt Count 164 Sodium 140 Potassium 3.9 Chloride 105 Carbon Dioxide 23 BUN 79 H Creatinine 2.1 H Random Glucose 88 Calcium 8.1 L Phosphorus 4.6 D Magnesium 3.0 H Creatine Kinase 146 Troponin I 0.19 H Chest Clear Cor Irregular No new murmur Abd. Mildly distended, soft nontender BS positive No mass Ext Mild peripheral edema Neuro No new focal deficit F/C in place Assessment and Plan Mental status change Possible toxic/metabolic encephalopathy in setting of underlying dementia Dementia As above ASHD Mildly positive troponins of note H/O known CAD CRI may also cause elevation of troponin AFib On Eliquis H/O CHF Edema noted Cautious rehydration ?check ECHO CRI 80/2.1.>79/2.1 Hyperphosphatemia Recheck Hypoalbuminemia 2.7 Likely related to underlying acute/chronic disease as well as nutritional factors H/O hypertenion Currently hypotensive See below Cardiology assessment Hypotension On gently iv saline replacement Mild edema noted HPL Stable Anemia 10.9/33.9 Back pain Currently stable BPH F/C in place Abdominal distension AXR reviewed Likely ileus pattern Await official report
[2017-01-29 10:05] LABS: TROPONIN I 0.2 ng/ml (0.00-0.05)
[2017-01-29] MEDS ORDERED: SODIUM PHOSPHATE/NA BIPHOS 133 ML ENEMA RC ONE (13:45)
[2017-01-29] MEDS: SODIUM CHLORIDE 1,000 ML IV SCH (22:22)
[2017-01-29] MEDS: ATORVASTATIN CA 80 MG TABLET (FP) PO SCH (22:23)
[2017-01-30] MEDS: TAMSULOSIN HCL 0.4 MG CAP.ER.24H (FP) PO SCH (06:02)
[2017-01-30 08:01] LABS: BASOPHIL 0.5 % (0-2.0); EOSINOPHIL 1.5 % (0-4.5); MCH 29.5 pg (25.7-33.7); MCHC 32.4 g/dl (32.0-35.9); MEAN CELL VOLUME 90.9 fl (80-96); MEAN PLT VOLUME 8.5 fl (7.5-11.1); NEUTROPHILS 85.1 % (42.8-82.8); PLATELET COUNT 173 K/MM3 (134-434); RDW 19.7 % (11.9-15.9); WHITE BLOOD COUNT 10.6 K/mm3 (4.0-10.0)
[2017-01-30 08:21] LABS: ALBUMIN 2.7 g/dl (3.4-5.0); BILIRUBIN,TOTAL 0.9 mg/dL (0.2-1.0); CREATININE 2.2 mg/dL (0.7-1.3)
[2017-01-30 08:24] LABS: TROPONIN I 0.18 ng/ml (0.00-0.05)
[2017-01-30] MEDS: APIXABAN 2.5 MG TABLET PO SCH ×2 (11:40→21:43)
[2017-01-30] MEDS: DOCUSATE SODIUM 100 MG CAPSULE (FP) PO SCH ×2 (11:40→21:43)
[2017-01-30] MEDS: POLYETHYLENE GLYCOL 3350 119 GM BTL PO SCH (11:40)
[2017-01-30] MEDS: CARVEDILOL 6.25 MG TABLET (FP) PO SCH (11:40)
--- NOTE | 2017-01-30 13:02 | PN ---
Progress Note, Physician Chief Complaint: Mr Wisdom says he is feeling fine. No cp, sob, n/v. Still confused and not at baseline. - Current Medication List Current Medications: Active Medications Acetaminophen (Tylenol -) 650 mg PO Q4H PRN PRN Reason: FEVER OR PAIN Apixaban (Eliquis -) 2.5 mg PO BID FOR[facility]LY [facility], [facility] Last Admin: 01/30/17 11:40 Dose: 2.5 mg Atorvastatin Calcium (Lipitor -) 80 mg PO HS [facility], [facility]1983 Last Admin: 01/29/17 22:23 Dose: 80 mg Carvedilol (Coreg -) 6.25 mg PO DAILY [facility], [facility]1983 Last Admin: 01/30/17 11:40 Dose: 6.25 mg Docusate Sodium (Colace -) 100 mg PO BID [facility] Last Admin: 01/30/17 11:40 Dose: 100 mg Sodium Chloride (Normal Saline -) 1,000 mls @ 42 mls/hr IV ASDIR [facility], [facility] Last Admin: 01/29/17 22:22 Dose: 42 mls/hr Ondansetron HCl (Zofran Injection) 4 mg IVPB Q6H PRN PRN Reason: NAUSEA Polyethylene Glycol (Miralax (For Daily Use) -) 17 gm PO DAILY [facility] Last Admin: 01/30/17 11:40 Dose: 17 grams Tamsulosin HCl (Flomax -) 0.4 mg PO AM [facility] Last Admin: 01/30/17 06:02 Dose: 0.4 mg - Objective Vital Signs: Vital Signs Temperature 97.6 F 01/30/17 12:11 Pulse Rate 57 L 01/30/17 12:11 Respiratory Rate 18 01/30/17 12:11 Blood Pressure 132/61 01/30/17 12:11 O2 Sat by Pulse Oximetry (%) 98 01/30/17 09:00 Constitutional: Yes: Well Nourished, No Distress, Calm Cardiovascular: Yes: Regular Rate and Rhythm. No: Gallop, Murmur, Rub Respiratory: Yes: Regular, CTA Bilaterally. No: Rales, Rhonchi, Wheezes Gastrointestinal: Yes: Normal Bowel Sounds, Soft, Distention. No: Tenderness Extremities: Yes: WNL Edema: No Labs: CBC, BMP 01/30/17 06:30 01/30/17 06:30 Problem List - Problems (1) Acute metabolic encephalopathy Code(s): G93.41 - METABOLIC ENCEPHALOPATHY (2) Qqzhn-yu-pamoomk kidney injury Code(s): N17.9 - ACUTE KIDNEY FAILURE, UNSPECIFIED N18.9 - CHRONIC KIDNEY DISEASE, UNSPECIFIED (3) Elevated troponin Code(s): R79.89 - OTHER SPECIFIED ABNORMAL FINDINGS OF BLOOD CHEMISTRY (4) Atrial fibrillation Code(s): I48.91 - UNSPECIFIED ATRIAL FIBRILLATION Qualifiers: Atrial fibrillation type: chronic Qualified Code(s): I48.2 - Chronic atrial fibrillation (5) BPH (benign prostatic hyperplasia) Code(s): N40.0 - BENIGN PROSTATIC HYPERPLASIA WITHOUT LOWER URINRY TRACT SYMP (6) CHF (congestive heart failure) Code(s): I50.9 - HEART FAILURE, UNSPECIFIED Qualifiers: Congestive heart failure type: diastolic Congestive heart failure chronicity: chronic Qualified Code(s): I50.32 - Chronic diastolic ( congestive) heart failure (7) Coronary artery disease Code(s): I25.10 - ATHSCL HEART DISEASE OF [place] CORONARY ARTERY W/O ANG PCTRS Qualifiers: Coronary Disease-Associated Artery/Lesion type: [place] artery [place] vs. transplanted heart: [place] heart Associated angina: without angina Qualified Code(s): I25.10 - Atherosclerotic heart disease of [place] coronary artery without angina pectoris (8) HLD (hyperlipidemia) Code(s): E78.5 - HYPERLIPIDEMIA, UNSPECIFIED Qualifiers: Hyperlipidemia type: pure hypercholesterolemia Qualified Code(s): E78.00 - Pure hypercholesterolemia, unspecified; E78.0 - Pure hypercholesterolemia (9) HTN (hypertension) Code(s): I10 - ESSENTIAL (PRIMARY) HYPERTENSION Qualifiers: Hypertension type: essential hypertension Qualified Code(s): I10 - Essential (primary) hypertension (10) Abdominal distension Code(s): R14.0 - ABDOMINAL DISTENSION (GASEOUS) Assessment/Plan (1) Acute metabolic encephalopathy Assessment/Plan: -improving -secondary to uremia and dehydration -continue IVF currently Code(s): G93.41 - METABOLIC ENCEPHALOPATHY (2) Dfzcf-lf-xlwwdez kidney injury Assessment/Plan: -BUN elevated above normal -hold lasix -gentle hydration -monitor Code(s): N17.9 - ACUTE KIDNEY FAILURE, UNSPECIFIED N18.9 - CHRONIC KIDNEY DISEASE, UNSPECIFIED (3) Elevated troponin Assessment/Plan: -awaiting cardiology recommendation -suspect not ACS, secondary to renal function Code(s): R79.89 - OTHER SPECIFIED ABNORMAL FINDINGS OF BLOOD CHEMISTRY (4) Atrial fibrillation Assessment/Plan: -continue eliquis and coreg Code(s): I48.91 - UNSPECIFIED ATRIAL FIBRILLATION Qualifiers: Atrial fibrillation type: chronic Qualified Code(s): I48.2 - Chronic atrial fibrillation (5) BPH (benign prostatic hyperplasia) Assessment/Plan: -continue flomax Code(s): N40.0 - BENIGN PROSTATIC HYPERPLASIA WITHOUT LOWER URINRY TRACT SYMP (6) CHF (congestive heart failure) Assessment/Plan: -not in exacerbation -hold lasix currently Code(s): I50.9 - HEART FAILURE, UNSPECIFIED Qualifiers: Congestive heart failure type: diastolic Congestive heart failure chronicity: chronic Qualified Code(s): I50.32 - Chronic diastolic ( congestive) heart failure (7) Coronary artery disease Assessment/Plan: -cardiology consult Code(s): I25.10 - ATHSCL HEART DISEASE OF [place] CORONARY ARTERY W/O ANG PCTRS Qualifiers: Coronary Disease-Associated Artery/Lesion type: [place] artery [place] vs. transplanted heart: [place] heart Associated angina: without angina Qualified Code(s): I25.10 - Atherosclerotic heart disease of [place] coronary artery without angina pectoris (8) HLD (hyperlipidemia) Assessment/Plan: -continue statin Code(s): E78.5 - HYPERLIPIDEMIA, UNSPECIFIED Qualifiers: Hyperlipidemia type: pure hypercholesterolemia (9) HTN (hypertension) Assessment/Plan: -low normal currently -hydration with IVF Code(s): I10 - ESSENTIAL (PRIMARY) HYPERTENSION Qualifiers: Hypertension type: essential hypertension Qualified Code(s): I10 - Essential (primary) hypertension (10) Abdominal distension Assessment/Plan: -secondary to constipation Code(s): R14.0 - ABDOMINAL DISTENSION (GASEOUS)
--- NOTE | 2017-01-30 13:26 | CON.CARD ---
Consult Consult Specialty:: Cardiology Referred by:: Nicanor Swain MD Reason for Consultation:: Altered mental status - History of Present Illness Chief Complaint: Altered mental status History of Present Illness: Patient is an 86 year old male with h/o ASHD S/P PCI/stent, angina pectoris, LV diastolic dysfunction with h/o failure, possible infiltrative cardiomyopathy, HTN/HCVD and hypercholesterolemia admitted for altered mental status, lethargy and anorexia, similar presentation 12/2016. He denies LE edema, chest pain, palpitations, near or true syncope, orthopnea, PND or dyspnea, found to have subendocardial ischemic injury, trops plateaued. PCP -Dr. Owens - History Source History Provided By: Medical Record Limitations to Obtaining History: Poor Historian - Past Medical History Cardio/Vascular: Yes: CAD, CHF, HTN, Hyperlipdemia Renal/: Yes: BPH - Past Surgical History Past Surgical History: Yes: Stent, TURP - Alcohol/Substance Use Hx Alcohol Use: No History of Substance Use: reports: None - Smoking History Smoking history: Never smoked Have you smoked in the past 12 months: No Aproximately how many cigarettes per day: 0 - Social History ADL: Independent History of Recent Travel: No Home Medications - Allergies Allergies/Adverse Reactions: Allergies Allergy/AdvReac Type Severity Reaction Status Date / Time No Known Drug Allergies Allergy Verified 01/28/17 11:54 - Home Medications Home Medications: Ambulatory Orders Tamsulosin HCl 0.4 mg PO AM 11/04/12 Atorvastatin Ca [Lipitor] 80 mg PO HS 11/18/12 Carvedilol [Coreg -] 6.25 mg PO DAILY 06/09/16 Furosemide [Lasix] 40 mg PO DAILY #30 tablet 12/28/16 Apixaban [Eliquis] 2.5 mg PO BID 01/28/17 Family Disease History - Family Disease History Family Disease History: Other: Father (unknown condition) Review of Systems Unable to obtain ROS, reason: Confused Vital Signs: Vital Signs Temperature 97.6 F 01/30/17 12:11 Pulse Rate 57 L 01/30/17 12:11 Respiratory Rate 18 01/30/17 12:11 Blood Pressure 132/61 01/30/17 12:11 O2 Sat by Pulse Oximetry (%) 98 01/30/17 09:00 Constitutional: Yes: No Distress, Calm Neck: Yes: Supple Respiratory: Yes: Regular, Diminished Gastrointestinal: Yes: Normal Bowel Sounds, Soft Cardiovascular: Yes: Pulse Irregular JVD: No Carotid Bruit: No Murmur: Yes: Systolic Murmur, Grade 1 Edema: No - Other Data Labs, Other Data: CBC, BMP 01/30/17 06:30 01/30/17 06:30 Troponin, BNP 01/30/17 01/30/17 06:30 06:30 Troponin I 0.18 H Cancelled Troponin, BNP 01/30/17 01/30/17 06:30 06:30 Troponin I 0.18 H Cancelled Afib @ 69 PRWP Ejection Fraction %: LVEF > or = 40 % Imaging - Results Chest X-ray: Report Reviewed (Bilateral effusions with ATX similar to previous chest CT 12/2016) X-ray: Report Reviewed (AXR: Fecal impaction, no obstruction) Cat Scan: Report Reviewed (No stroke or bleed) Problem List - Problems (1) Elevated troponin Code(s): R79.89 - OTHER SPECIFIED ABNORMAL FINDINGS OF BLOOD CHEMISTRY (2) Acute metabolic encephalopathy Code(s): G93.41 - METABOLIC ENCEPHALOPATHY (3) Stxzr-md-casxtlg kidney injury Code(s): N17.9 - ACUTE KIDNEY FAILURE, UNSPECIFIED N18.9 - CHRONIC KIDNEY DISEASE, UNSPECIFIED (4) Atrial fibrillation Code(s): I48.91 - UNSPECIFIED ATRIAL FIBRILLATION Qualifiers: Atrial fibrillation type: chronic Qualified Code(s): I48.2 - Chronic atrial fibrillation (5) CKD (chronic kidney disease) Code(s): N18.9 - CHRONIC KIDNEY DISEASE, UNSPECIFIED Qualifiers: Chronic kidney disease stage: stage 2 (mild) Qualified Code(s): N18.2 - Chronic kidney disease, stage 2 (mild) (6) Coronary artery disease Code(s): I25.10 - ATHSCL HEART DISEASE OF [place] CORONARY ARTERY W/O ANG PCTRS Qualifiers: Coronary Disease-Associated Artery/Lesion type: [place] artery [place] vs. transplanted heart: [place] heart Associated angina: without angina Qualified Code(s): I25.10 - Atherosclerotic heart disease of [place] coronary artery without angina pectoris (7) Diastolic CHF Code(s): I50.30 - UNSPECIFIED DIASTOLIC (CONGESTIVE) HEART FAILURE Qualifiers : Congestive heart failure chronicity: chronic Qualified Code(s): I50.32 - Chronic diastolic (congestive) heart failure (8) HLD (hyperlipidemia) Code(s): E78.5 - HYPERLIPIDEMIA, UNSPECIFIED Qualifiers: Hyperlipidemia type: pure hypercholesterolemia Qualified Code(s): E78.00 - Pure hypercholesterolemia, unspecified; E78.0 - Pure hypercholesterolemia (9) HTN (hypertension) Code(s): I10 - ESSENTIAL (PRIMARY) HYPERTENSION Qualifiers: Hypertension type: essential hypertension Qualified Code(s): I10 - Essential (primary) hypertension (10) Pleural effusion Code(s): J90 - PLEURAL EFFUSION, NOT ELSEWHERE CLASSIFIED (11) Pulmonary mass Code(s): R91.8 - OTHER NONSPECIFIC ABNORMAL FINDING OF LUNG FIELD (12) Status post coronary artery stent placement Code(s): Z95.5 - PRESENCE OF CORONARY ANGIOPLASTY IMPLANT AND GRAFT (13) Subendocardial ischemia Code(s): I24.8 - OTHER FORMS OF ACUTE ISCHEMIC HEART DISEASE Assessment/Plan 02/09/2016 Echo: Severe cLVH, mild-mod LV systolic dysfunction, mod AR, MR, mild BURT 1.7 cm^2, RVSP 38 mmHg 1. Acute metabolic encephelopathy improving 2. Acute on chronic kidney injury improved 3. Chronic diastolic CHF infiltrative cardiomyopathy cannot be excluded 4. CAD post PCI/stent, subendocardial ischemia with trops plateaued 5. HTN 6. Hypercholesterolemia 7. Questionable PAF although no clear documentation 8. Anemia 9. Pulmonary masses with R>L pleural effusion, r/o malignancy PLAN: 1. Continue Carvedilol 6.25 qd as hemodynamics tolerate 2. Judicious hydration, resume Losartan once renal function stabilizes 3. Continue Eliquis 2.5 bid and Lipitor 80 qd, Zetia was d/cande in office 4. Patient and healthcare proxy previously deferred further workup of pulm masses 5. Thank you for consultative opportunity
[2017-01-30] MEDS: SODIUM CHLORIDE 1,000 ML IV SCH (21:42)
[2017-01-30] MEDS: ATORVASTATIN CA 80 MG TABLET (FP) PO SCH (21:43)
[2017-01-31] MEDS: TAMSULOSIN HCL 0.4 MG CAP.ER.24H (FP) PO SCH (06:21)
[2017-01-31 07:40] LABS: BASOPHIL 0.5 % (0-2.0); EOSINOPHIL 2.4 % (0-4.5); MCH 29.7 pg (25.7-33.7); MCHC 32.5 g/dl (32.0-35.9); MEAN CELL VOLUME 91.4 fl (80-96); MEAN PLT VOLUME 8.2 fl (7.5-11.1); NEUTROPHILS 85.9 % (42.8-82.8); PLATELET COUNT 150 K/MM3 (134-434); RDW 19.5 % (11.9-15.9); WHITE BLOOD COUNT 10.5 K/mm3 (4.0-10.0)
[2017-01-31 08:10] LABS: CALCIUM 7.9 mg/dL (8.5-10.1); CREATININE 2.1 mg/dL (0.7-1.3); PHOSPHOROUS 3.9 mg/dL (2.5-4.9)
[2017-01-31] MEDS ORDERED: PT OWN MED DRAWER 7, Y5N ONE (10:07)
--- NOTE | 2017-01-31 10:20 | CONSULT ---
Admitting History and Physical - Primary Care Physician PCP: Nicanor Swain - Admission History of Present Illness: Per EMR note: "Patient is an 86-year-old male with history of HTN, CAD, CHF, AFIB on eliquis, BPH presenting with altered mental status as per family. Daughter reports that this has been going on for a long time where patient intermittently gets confused and stays in bed all day. Patient did have a fall a week ago, but had a negative head CT as arranged by his primary care physician. Patient was also admitted to [facility] several weeks ago for same and dx w/ metabolic encephalopathy w/ DARNELL. Patient able to give history and denies G[place], dizziness, focal weakness, CP, SOB, abd pain, change in BM or dysuria. Patient well- appearing and stable, A&O x 2, which is not patient's baseline per family, rest of exam unremarkable. " Selected Entries 01/30/17 01/30/17 01/30/17 05:49 11:03 12:11 Breakfast 75% Lunch Supper Temperature 97.2 F L 97.6 F 01/30/17 01/30/17 01/30/17 14:49 19:17 19:20 Breakfast Lunch 75% Supper 0 Temperature 97.2 F L 97.3 F L 01/30/17 01/31/17 01/31/17 21:00 02:44 06:39 Breakfast Lunch Supper Temperature 97.6 F 97.3 F L 98.2 F Laboratory Tests 01/29/17 01/30/17 01/31/17 05:35 06:30 06:00 WBC 8.1 10.6 H D 10.5 H Pt is o x 3, but vague in responses concerning why he is hear. He is concerned that his cane was taken. He reports labored swallow and pills, solids sticking in his throat at times, and occasionally coughing on liquids. History Source: Medical Record Limitations to Obtaining History: Clinical Condition - Past Medical History Cardiovascular: Yes: CAD, CHF, HTN, Hyperlipdemia Renal/: Yes: BPH - Past Surgical History Past Surgical History: Yes: Stent, TURP - Smoking History Smoking history: Never smoked Have you smoked in the past 12 months: No Aproximately how many cigarettes per day: 0 - Alcohol/Substance Use Hx Alcohol Use: No History of Substance Use: reports: None - Social History ADL: Independent History of Recent Travel: No History - Admission Reason For Visit: AMS - Diagnostics X-ray: Report Reviewed - General Mental Status: Awake and Alert, Able to Follow Commands, Forgetful, Vague Attention: Distractible, Mild Impairment Ability to Follow Directions: Fair Head/Neck Control: WFL - Hearing Hearing: Functional Hearing Aide: No Speech Evaluation - Communication Primary Language: PERSIAN Communication: Yes: Within Normal Limits, Simple Responses Oral Expression Ability: Yes: Mild Impairment - Speech Production Able to Make Needs Known: Yes: WNL Intelligibility: Yes: WNL - Speech Characteristics Voice Loudness: Mildly Soft/Quiet Voice Pitch: Yes: Normal Voice Phonatory-based Quality: Yes: Dysphonia (mild) Speech Pattern: Normal Speech Clarity: < 100% Nasal Resonance: Normal Articulation: Yes: Precise - Language/Auditory Comprehension Follows: Yes: 1 Stage Simple Commands - Language/Verbal Expression Able to Communicate Wants and Needs: Yes: WNL (simple, limited responses) - Swallow Evaluation/Bedside Assessment Current Nutritional Intake: Soft, Thin Liquids Oral Secretions: Yes: WFL Dentition: Yes: Adequate Facial Symmetry at Rest: Symmetrical Facial Symmetry on Retraction: Symmetrical Facial Movement: Controlled Sensation: Normal Against Resistance Opening: Normal Against Resistance Closing: Normal Pucker Lips: Normal Smile: Normal Lingual Movement: Normal Lingual Speed of Movement: Normal Lingual Movement Strgth Against Opposition: Normal Lingual Movement Characteristics: Normal Velopharyngeal Movement: Normal Laryngeal Movement: Able to Palpate, Reduced Excursion, Labored,delay initiation , Reduced Velocity Bolus Size: WFL Labial Seal: WFL Chewing: WFL Oral Prep Time: WFL A-P Transit: WFL Pocketing: None Timing of Swallow: Delayed Coughing/Throat Clear: No Change in Voice: No Recommendations - Speech Evaluation, Impression/Plan Impression: Pt reports labored swallow and pills, solids sticking in his throat at times, and occasionally coughing on liquids. Suspect possible stasis in pharynx, requiring more effortful swallow, repeat dry swallow, or liquid wash down to clear residue. No overt symptoms of aspiration, although this can not be r/o at bedside. - Dysphagia Impressions/Plan Dysphagia Impressions: Mild Impairment, Risk of Aspiration, Ongoing Evaluation *Silent aspiration: cannot be R/O at bedside Dysphagia Treatment Plan: Small Bites, Chin Tuck/Down, Safe Rate, OOB for meals , OOB for 1 h. after meals, Other (alternate solids with liquids. complete meal with liquids.) Recommendations: Modified Barium Swallow (if further evaluation is indicated. eg congestion, infiltrates,poor po acceptance.) - Recommendations Diet Consistency: Other (soft, easy to cheweg fish, pasta. Considered chopped meats with extra gravy.) Liquids: Thin Liquids Supplement: Ensure, Magic Cup, Other (per RD recommendations.As indicated, b/n meals.)
[2017-01-31] MEDS: DOCUSATE SODIUM 100 MG CAPSULE (FP) PO SCH ×2 (10:27→21:19)
[2017-01-31] MEDS: CARVEDILOL 6.25 MG TABLET (FP) PO SCH (10:27)
[2017-01-31] MEDS: APIXABAN 2.5 MG TABLET PO SCH ×2 (10:28→21:19)
[2017-01-31] MEDS: POLYETHYLENE GLYCOL 3350 119 GM BTL PO SCH (10:28)
--- NOTE | 2017-01-31 11:18 | PN ---
Progress Note, Physician History of Present Illness: Mental status at baseline, weak and debilitated. - Current Medication List Current Medications: Active Medications Acetaminophen (Tylenol -) 650 mg PO Q4H PRN PRN Reason: FEVER OR PAIN Apixaban (Eliquis -) 2.5 mg PO BID [facility] Last Admin: 01/31/17 10:28 Dose: 2.5 mg Atorvastatin Calcium (Lipitor -) 80 mg PO HS [facility] Last Admin: 01/30/17 21:43 Dose: 80 mg Carvedilol (Coreg -) 6.25 mg PO DAILY [facility] Last Admin: 01/31/17 10:27 Dose: 6.25 mg Docusate Sodium (Colace -) 100 mg PO BID [facility] Last Admin: 01/31/17 10:27 Dose: 100 mg Sodium Chloride (Normal Saline -) 1,000 mls @ 42 mls/hr IV ASDIR [facility] Last Admin: 01/30/17 21:42 Dose: 42 mls/hr Ondansetron HCl (Zofran Injection) 4 mg IVPB Q6H PRN PRN Reason: NAUSEA Polyethylene Glycol (Miralax (For Daily Use) -) 17 gm PO DAILY [facility] Last Admin: 01/31/17 10:28 Dose: 17 grams Tamsulosin HCl (Flomax -) 0.4 mg PO AM [facility] Last Admin: 01/31/17 06:21 Dose: 0.4 mg - Objective Vital Signs: Vital Signs Temperature 98.2 F 01/31/17 06:39 Pulse Rate 81 01/31/17 06:39 Respiratory Rate 18 01/31/17 06:39 Blood Pressure 121/78 01/31/17 06:39 O2 Sat by Pulse Oximetry (%) 94 L 01/30/17 21:00 Constitutional: Yes: No Distress, Calm, Thin Neck: Yes: Supple Cardiovascular: Yes: Regular Rate and Rhythm Respiratory: Yes: Regular, Diminished Gastrointestinal: Yes: Normal Bowel Sounds, Soft Edema: No Labs: CBC, BMP 01/31/17 06:00 01/31/17 06:00 - ....Imaging X-ray: Report Reviewed (AXR: slightly less distension) Problem List - Problems (1) Elevated troponin Code(s): R79.89 - OTHER SPECIFIED ABNORMAL FINDINGS OF BLOOD CHEMISTRY (2) Acute metabolic encephalopathy Code(s): G93.41 - METABOLIC ENCEPHALOPATHY (3) Oqksm-ub-klylmzh kidney injury Code(s): N17.9 - ACUTE KIDNEY FAILURE, UNSPECIFIED N18.9 - CHRONIC KIDNEY DISEASE, UNSPECIFIED (4) Atrial fibrillation Code(s): I48.91 - UNSPECIFIED ATRIAL FIBRILLATION Qualifiers: Atrial fibrillation type: chronic Qualified Code(s): I48.2 - Chronic atrial fibrillation (5) CKD (chronic kidney disease) Code(s): N18.9 - CHRONIC KIDNEY DISEASE, UNSPECIFIED Qualifiers: Chronic kidney disease stage: stage 2 (mild) Qualified Code(s): N18.2 - Chronic kidney disease, stage 2 (mild) (6) Coronary artery disease Code(s): I25.10 - ATHSCL HEART DISEASE OF [place] CORONARY ARTERY W/O ANG PCTRS Qualifiers: Coronary Disease-Associated Artery/Lesion type: [place] artery [place] vs. transplanted heart: [place] heart Associated angina: without angina Qualified Code(s): I25.10 - Atherosclerotic heart disease of [place] coronary artery without angina pectoris (7) Diastolic CHF Code(s): I50.30 - UNSPECIFIED DIASTOLIC (CONGESTIVE) HEART FAILURE Qualifiers : Congestive heart failure chronicity: chronic Qualified Code(s): I50.32 - Chronic diastolic (congestive) heart failure (8) HLD (hyperlipidemia) Code(s): E78.5 - HYPERLIPIDEMIA, UNSPECIFIED Qualifiers: Hyperlipidemia type: pure hypercholesterolemia Qualified Code(s): E78.00 - Pure hypercholesterolemia, unspecified; E78.0 - Pure hypercholesterolemia (9) HTN (hypertension) Code(s): I10 - ESSENTIAL (PRIMARY) HYPERTENSION Qualifiers: Hypertension type: essential hypertension Qualified Code(s): I10 - Essential (primary) hypertension (10) Pleural effusion Code(s): J90 - PLEURAL EFFUSION, NOT ELSEWHERE CLASSIFIED (11) Pulmonary mass Code(s): R91.8 - OTHER NONSPECIFIC ABNORMAL FINDING OF LUNG FIELD (12) Status post coronary artery stent placement Code(s): Z95.5 - PRESENCE OF CORONARY ANGIOPLASTY IMPLANT AND GRAFT (13) Subendocardial ischemia Code(s): I24.8 - OTHER FORMS OF ACUTE ISCHEMIC HEART DISEASE Assessment/Plan 02/09/2016 Echo: Severe cLVH, mild-mod LV systolic dysfunction, mod AR, MR, mild BURT 1.7 cm^2, RVSP 38 mmHg 1. Acute metabolic encephelopathy resolved 2. Acute on chronic kidney injury improved 3. Chronic diastolic CHF infiltrative cardiomyopathy cannot be excluded 4. CAD post PCI/stent, subendocardial ischemia with trops plateaued 5. HTN 6. Hypercholesterolemia 7. Questionable PAF although no clear documentation 8. Anemia 9. Pulmonary masses with R>L pleural effusion, r/o malignancy PLAN: 1. Continue Carvedilol 6.25 qd as hemodynamics tolerate 2. Judicious hydration, resume Losartan once renal function stabilizes 3. Continue Eliquis 2.5 bid and Lipitor 80 qd, Zetia was d/cande in office 4. Patient and healthcare proxy previously deferred further workup of pulm masses 5. PT->SNF
--- NOTE | 2017-01-31 15:21 | PN ---
Progress Note, Physician Chief Complaint: Mr Wisdom says he is feeling fine. No cp, sob, n/v. Mental status improved today, however RN says he was significantly confused earlier. - Current Medication List Current Medications: Active Medications Acetaminophen (Tylenol -) 650 mg PO Q4H PRN PRN Reason: FEVER OR PAIN Apixaban (Eliquis -) 2.5 mg PO BID [facility] Last Admin: 01/31/17 10:28 Dose: 2.5 mg Atorvastatin Calcium (Lipitor -) 80 mg PO HS [facility] Last Admin: 01/30/17 21:43 Dose: 80 mg Carvedilol (Coreg -) 6.25 mg PO DAILY [facility] Last Admin: 01/31/17 10:27 Dose: 6.25 mg Docusate Sodium (Colace -) 100 mg PO BID [facility] Last Admin: 01/31/17 10:27 Dose: 100 mg Sodium Chloride (Normal Saline -) 1,000 mls @ 42 mls/hr IV ASDIR [facility] Last Admin: 01/30/17 21:42 Dose: 42 mls/hr Ondansetron HCl (Zofran Injection) 4 mg IVPB Q6H PRN PRN Reason: NAUSEA Polyethylene Glycol (Miralax (For Daily Use) -) 17 gm PO DAILY [facility] Last Admin: 01/31/17 10:28 Dose: 17 grams Tamsulosin HCl (Flomax -) 0.4 mg PO AM [facility] Last Admin: 01/31/17 06:21 Dose: 0.4 mg - Objective Vital Signs: Vital Signs Temperature 97.3 F L 01/31/17 09:00 Pulse Rate 85 01/31/17 09:00 Respiratory Rate 18 01/31/17 09:00 Blood Pressure 118/61 01/31/17 09:00 O2 Sat by Pulse Oximetry (%) 98 01/31/17 09:00 Constitutional: Yes: Well Nourished, No Distress, Calm Cardiovascular: Yes: Pulse Irregular. No: Tachycardia, Gallop, Murmur, Rub Respiratory: Yes: Regular, CTA Bilaterally. No: Rales, Rhonchi, Wheezes Gastrointestinal: Yes: Normal Bowel Sounds, Soft, Distention. No: Tenderness Extremities: Yes: WNL Edema: No Labs: CBC, BMP 01/31/17 06:00 01/31/17 06:00 Problem List - Problems (1) Acute metabolic encephalopathy Code(s): G93.41 - METABOLIC ENCEPHALOPATHY (2) Pzxmt-ol-jjckyyl kidney injury Code(s): N17.9 - ACUTE KIDNEY FAILURE, UNSPECIFIED N18.9 - CHRONIC KIDNEY DISEASE, UNSPECIFIED (3) Elevated troponin Code(s): R79.89 - OTHER SPECIFIED ABNORMAL FINDINGS OF BLOOD CHEMISTRY (4) Atrial fibrillation Code(s): I48.91 - UNSPECIFIED ATRIAL FIBRILLATION Qualifiers: Atrial fibrillation type: chronic Qualified Code(s): I48.2 - Chronic atrial fibrillation (5) BPH (benign prostatic hyperplasia) Code(s): N40.0 - BENIGN PROSTATIC HYPERPLASIA WITHOUT LOWER URINRY TRACT SYMP (6) CHF (congestive heart failure) Code(s): I50.9 - HEART FAILURE, UNSPECIFIED Qualifiers: Congestive heart failure type: diastolic Congestive heart failure chronicity: chronic Qualified Code(s): I50.32 - Chronic diastolic ( congestive) heart failure (7) Coronary artery disease Code(s): I25.10 - ATHSCL HEART DISEASE OF [place] CORONARY ARTERY W/O ANG PCTRS Qualifiers: Coronary Disease-Associated Artery/Lesion type: [place] artery [place] vs. transplanted heart: [place] heart Associated angina: without angina Qualified Code(s): I25.10 - Atherosclerotic heart disease of [place] coronary artery without angina pectoris (8) HLD (hyperlipidemia) Code(s): E78.5 - HYPERLIPIDEMIA, UNSPECIFIED Qualifiers: Hyperlipidemia type: pure hypercholesterolemia Qualified Code(s): E78.00 - Pure hypercholesterolemia, unspecified; E78.0 - Pure hypercholesterolemia (9) HTN (hypertension) Code(s): I10 - ESSENTIAL (PRIMARY) HYPERTENSION Qualifiers: Hypertension type: essential hypertension Qualified Code(s): I10 - Essential (primary) hypertension (10) Abdominal distension Code(s): R14.0 - ABDOMINAL DISTENSION (GASEOUS) Assessment/Plan (1) Acute metabolic encephalopathy Assessment/Plan: -improving -secondary to uremia and dehydration -continue IVF currently Code(s): G93.41 - METABOLIC ENCEPHALOPATHY (2) Swnlx-ys-yqftnue kidney injury Assessment/Plan: -BUN elevated above normal -hold lasix -will consult nephrology since not significantly improving Code(s): N17.9 - ACUTE KIDNEY FAILURE, UNSPECIFIED N18.9 - CHRONIC KIDNEY DISEASE, UNSPECIFIED (3) Elevated troponin Assessment/Plan: -appreciate cardiology assistance -no further work up needed Code(s): R79.89 - OTHER SPECIFIED ABNORMAL FINDINGS OF BLOOD CHEMISTRY (4) Atrial fibrillation Assessment/Plan: -continue eliquis and coreg Code(s): I48.91 - UNSPECIFIED ATRIAL FIBRILLATION Qualifiers: Atrial fibrillation type: chronic Qualified Code(s): I48.2 - Chronic atrial fibrillation (5) BPH (benign prostatic hyperplasia) Assessment/Plan: -continue flomax Code(s): N40.0 - [place] PROSTATIC HYPERPLASIA WITHOUT LOWER URINRY TRACT SYMP (6) CHF (congestive heart failure) Assessment/Plan: -not in exacerbation -hold lasix currently Code(s): I50.9 - HEART FAILURE, UNSPECIFIED Qualifiers: Congestive heart failure type: diastolic Congestive heart failure chronicity: chronic Qualified Code(s): I50.32 - Chronic diastolic ( congestive) heart failure (7) Coronary artery disease Assessment/Plan: -cardiology consulted and cleared Code(s): I25.10 - ATHSCL HEART DISEASE OF [place] CORONARY ARTERY W/O ANG PCTRS Qualifiers: Coronary Disease-Associated Artery/Lesion type: [place] artery [place] vs. transplanted heart: [place] heart Associated angina: without angina Qualified Code(s): I25.10 - Atherosclerotic heart disease of [place] coronary artery without angina pectoris (8) HLD (hyperlipidemia) Assessment/Plan: -continue statin Code(s): E78.5 - HYPERLIPIDEMIA, UNSPECIFIED Qualifiers: Hyperlipidemia type: pure hypercholesterolemia (9) HTN (hypertension) Assessment/Plan: -low normal currently -hydration with IVF Code(s): I10 - ESSENTIAL (PRIMARY) HYPERTENSION Qualifiers: Hypertension type: essential hypertension Qualified Code(s): I10 - Essential (primary) hypertension (10) Abdominal distension Assessment/Plan: -secondary to constipation Code(s): R14.0 - ABDOMINAL DISTENSION (GASEOUS)
--- NOTE | 2017-01-31 16:08 | CONSULT ---
Consult - text type - Consultation Consultation Note: Renal Consult for DARNELL on CKD This is a 86 year old gentleman with PMhx of CAD s/p PCI and stenting, CHF ( diastolyc dysfunction), BPH, CKD (baseline line Cr 1.4-1.7),Hypertension brought to the ED by daughter with concerns of worsening dementia, confusion and abd distension and found to have BUN/Cr of 80/2.1. Pt was seen on prior admission for DARNELL that was secondary to volume depletion in setting of Aldactone and Lasix (both were held last admission). Pt was started on IVF this admission w/o improvement in renal function. Pt w/o any acute complaints. Denies any sob, chest pain, N/V/D. Meyer in place with good urine output. PMhx: as above Allergies: NKDA Family Hx: [place] Social Hx: No T/A/D ROS: as per HPI, all other pertinent ros negative Home Meds: Home Medications Medication Instructions Recorded Tamsulosin HCl 0.4 mg PO AM 11/04/12 Atorvastatin Ca [Lipitor] 80 mg PO HS 11/18/12 Carvedilol [Coreg -] 6.25 mg PO DAILY 06/09/16 Furosemide [Lasix] 40 mg PO DAILY #30 tablet 12/28/16 Apixaban [Eliquis] 2.5 mg PO BID 01/28/17 Vital Signs Temperature 97.2 F L 01/31/17 15:18 Pulse Rate 90 01/31/17 15:18 Respiratory Rate 18 01/31/17 15:18 Blood Pressure 107/60 01/31/17 15:18 O2 Sat by Pulse Oximetry (%) 98 01/31/17 09:00 Intake & Output 01/28/17 01/29/17 01/30/17 01/31/17 23:59 23:59 23:59 23:59 Intake Total 983 924 462 Output Total 477 697 5047 900 Balance -500 283 -176 -438 Weight 104 lb 11.2 oz 140 lb 1.6 oz 142 lb 6 oz 144 lb 5 oz Gen: NAD, awake and alert HEENT: [place]/AT, MMM, No JVD CVS: RRR, No M/R Lungs: + rales at lung bases Abd: soft NT/ND Ext: 1-2+ edema in LE B/L Neuro: AAOX3, slow, confused : No bladder distension, meyer in place CBC, BMP 01/31/17 06:00 01/31/17 06:00 Current Medications Acetaminophen (Tylenol -) 650 mg PO Q4H PRN PRN Reason: FEVER OR PAIN Apixaban (Eliquis -) 2.5 mg PO BID [facility] Last Admin: 01/31/17 10:28 Dose: 2.5 mg Atorvastatin Calcium (Lipitor -) 80 mg PO HS [facility] Last Admin: 01/30/17 21:43 Dose: 80 mg Carvedilol (Coreg -) 6.25 mg PO DAILY [facility] Last Admin: 01/31/17 10:27 Dose: 6.25 mg Docusate Sodium (Colace -) 100 mg PO BID [facility] Last Admin: 01/31/17 10:27 Dose: 100 mg Ondansetron HCl (Zofran Injection) 4 mg IVPB Q6H PRN PRN Reason: NAUSEA Polyethylene Glycol (Miralax (For Daily Use) -) 17 gm PO DAILY [facility] Last Admin: 01/31/17 10:28 Dose: 17 grams Tamsulosin HCl (Flomax -) 0.4 mg PO AM [facility] Last Admin: 01/31/17 06:21 Dose: 0.4 mg A/p 86 year old gentleman with PMhx of CAD s/p PCI and stenting, CHF, BPH, CKD ( baseline line Cr 1.4?)Hypertension who presented with AMS/Confusion at home and found to have BUN/Cr of 98/2.2. #DARNELL on CKD Cr was 1.7 on discharge and even lower earlier in 2016. Pt has been on IVF and no improvement seen in renal function given LE edema and rales will hold IVF for now Check Urine studies for FeNa, FeUrea and if consistent with pre-renal picture can attempt diuresis Pt also with normal SPEP, and [place] -> ? 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
[2017-01-31] MEDS: ACETAMINOPHEN 325 MG TABLET (FP) PO PRN (21:20)
[2017-01-31] MEDS: ATORVASTATIN CA 80 MG TABLET (FP) PO SCH (21:20)
[2017-02-01] MEDS: TAMSULOSIN HCL 0.4 MG CAP.ER.24H (FP) PO SCH (06:14)
[2017-02-01 07:35] LABS: EOSINOPHIL 2.7 % (0-4.5); MCH 29.4 pg (25.7-33.7); MCHC 32.2 g/dl (32.0-35.9); MEAN CELL VOLUME 91.2 fl (80-96); MEAN PLT VOLUME 8.5 fl (7.5-11.1); NEUTROPHILS 84.6 % (42.8-82.8); PLATELET COUNT 164 K/MM3 (134-434); RDW 20.2 % (11.9-15.9); WHITE BLOOD COUNT 10.5 K/mm3 (4.0-10.0)
[2017-02-01 08:04] LABS: ALBUMIN 2.8 g/dl (3.4-5.0); CALCIUM 8.4 mg/dL (8.5-10.1); CREATININE 2.1 mg/dL (0.7-1.3); MAGNESIUM 3.1 mg/dL (1.8-2.4); PHOSPHOROUS 3.7 mg/dL (2.5-4.9); TOT PROT 6.3 g/dl (6.4-8.2)
[2017-02-01] MEDS: CARVEDILOL 6.25 MG TABLET (FP) PO SCH (09:49)
[2017-02-01] MEDS: DOCUSATE SODIUM 100 MG CAPSULE (FP) PO SCH ×2 (09:49→22:05)
[2017-02-01] MEDS: APIXABAN 2.5 MG TABLET PO SCH ×2 (09:50→22:05)
[2017-02-01] MEDS: POLYETHYLENE GLYCOL 3350 119 GM BTL PO SCH (09:50)
--- NOTE | 2017-02-01 12:32 | PN ---
Progress Note, CLERICAL OFFICE - Note Progress Note: Selected Entries 01/31/17 01/31/17 01/31/17 02:44 06:39 09:00 Breakfast Lunch Supper Temperature 97.3 F L 98.2 F 97.3 F L 01/31/17 01/31/17 01/31/17 11:14 15:18 19:58 Breakfast 50% Lunch 50% Supper Temperature 97.2 F L 97.3 F L 01/31/17 01/31/17 02/01/17 20:02 20:32 05:33 Breakfast Lunch Supper 25% Temperature 98.2 F 97.5 F L 02/01/17 02/01/17 10:00 11:05 Breakfast 50% 50% Lunch Supper Temperature 97.9 F Laboratory Tests 01/30/17 01/31/17 02/01/17 06:30 06:00 06:00 WBC 10.6 H D 10.5 H 10.5 H
--- NOTE | 2017-02-01 12:32 | PN ---
Progress Note, Physician History of Present Illness: Mental status at baseline, weak and debilitated, diuresis initiated. - Current Medication List Current Medications: Active Medications Acetaminophen (Tylenol -) 650 mg PO Q4H PRN PRN Reason: FEVER OR PAIN Last Admin: 01/31/17 21:20 Dose: 650 mg Apixaban (Eliquis -) 2.5 mg PO BID [facility] Last Admin: 02/01/17 09:50 Dose: 2.5 mg Atorvastatin Calcium (Lipitor -) 80 mg PO HS [facility] Last Admin: 01/31/17 21:20 Dose: 80 mg Carvedilol (Coreg -) 6.25 mg PO DAILY [facility] Last Admin: 02/01/17 09:49 Dose: 6.25 mg Docusate Sodium (Colace -) 100 mg PO BID [facility] Last Admin: 02/01/17 09:49 Dose: 100 mg Furosemide (Lasix Injection -) 40 mg IVPUSH BID@0600,1400 [facility] Ondansetron HCl (Zofran Injection) 4 mg IVPB Q6H PRN PRN Reason: NAUSEA Polyethylene Glycol (Miralax (For Daily Use) -) 17 gm PO DAILY [facility] Last Admin: 02/01/17 09:50 Dose: 17 grams Tamsulosin HCl (Flomax -) 0.4 mg PO AM [facility] Last Admin: 02/01/17 06:14 Dose: 0.4 mg - Objective Vital Signs: Vital Signs Temperature 97.9 F 02/01/17 10:00 Pulse Rate 68 02/01/17 10:00 Respiratory Rate 20 02/01/17 10:00 Blood Pressure 102/62 02/01/17 10:00 O2 Sat by Pulse Oximetry (%) 99 02/01/17 10:00 Constitutional: Yes: No Distress, Calm Neck: Yes: Supple Cardiovascular: Yes: Regular Rate and Rhythm Respiratory: Yes: Regular, Diminished, On Nasal O2 Gastrointestinal: Yes: Normal Bowel Sounds, Soft Edema: Yes Edema: LLE: 1+, RLE: 1+ Labs: CBC, BMP 02/01/17 06:00 02/01/17 06:00 - ....Imaging Chest X-ray: Report Reviewed (Increased bilateral effusions) Problem List - Problems (1) Elevated troponin Code(s): R79.89 - OTHER SPECIFIED ABNORMAL FINDINGS OF BLOOD CHEMISTRY (2) Acute metabolic encephalopathy Code(s): G93.41 - METABOLIC ENCEPHALOPATHY (3) Lxwto-xw-eaweplw kidney injury Code(s): N17.9 - ACUTE KIDNEY FAILURE, UNSPECIFIED N18.9 - CHRONIC KIDNEY DISEASE, UNSPECIFIED (4) Atrial fibrillation Code(s): I48.91 - UNSPECIFIED ATRIAL FIBRILLATION Qualifiers: Atrial fibrillation type: chronic Qualified Code(s): I48.2 - Chronic atrial fibrillation (5) CKD (chronic kidney disease) Code(s): N18.9 - CHRONIC KIDNEY DISEASE, UNSPECIFIED Qualifiers: Chronic kidney disease stage: stage 2 (mild) Qualified Code(s): N18.2 - Chronic kidney disease, stage 2 (mild) (6) Coronary artery disease Code(s): I25.10 - ATHSCL HEART DISEASE OF [place] CORONARY ARTERY W/O ANG PCTRS Qualifiers: Coronary Disease-Associated Artery/Lesion type: [place] artery [place] vs. transplanted heart: [place] heart Associated angina: without angina Qualified Code(s): I25.10 - Atherosclerotic heart disease of [place] coronary artery without angina pectoris (7) Diastolic CHF Code(s): I50.30 - UNSPECIFIED DIASTOLIC (CONGESTIVE) HEART FAILURE Qualifiers : Congestive heart failure chronicity: chronic Qualified Code(s): I50.32 - Chronic diastolic (congestive) heart failure (8) HLD (hyperlipidemia) Code(s): E78.5 - HYPERLIPIDEMIA, UNSPECIFIED Qualifiers: Hyperlipidemia type: pure hypercholesterolemia Qualified Code(s): E78.00 - Pure hypercholesterolemia, unspecified; E78.0 - Pure hypercholesterolemia (9) HTN (hypertension) Code(s): I10 - ESSENTIAL (PRIMARY) HYPERTENSION Qualifiers: Hypertension type: essential hypertension Qualified Code(s): I10 - Essential (primary) hypertension (10) Pleural effusion Code(s): J90 - PLEURAL EFFUSION, NOT ELSEWHERE CLASSIFIED (11) Pulmonary mass Code(s): R91.8 - OTHER NONSPECIFIC ABNORMAL FINDING OF LUNG FIELD (12) Status post coronary artery stent placement Code(s): Z95.5 - PRESENCE OF CORONARY ANGIOPLASTY IMPLANT AND GRAFT (13) Subendocardial ischemia Code(s): I24.8 - OTHER FORMS OF ACUTE ISCHEMIC HEART DISEASE Assessment/Plan 02/09/2016 Echo: Severe cLVH, mild-mod LV systolic dysfunction, mod AR, MR, mild BURT 1.7 cm^2, RVSP 38 mmHg 1. Acute metabolic encephelopathy resolved 2. Acute on chronic kidney injury improved 3. Acute on chronic diastolic CHF, infiltrative cardiomyopathy cannot be excluded 4. CAD post PCI/stent, subendocardial ischemia with trops plateaued 5. HTN 6. Hypercholesterolemia 7. Questionable PAF although no clear documentation 8. Anemia 9. Pulmonary masses with R>L pleural effusion, r/o malignancy PLAN: 1. Continue Carvedilol 6.25 qd as hemodynamics tolerate 2. IVF d/cande, IV diuresis initiated with monitor diuretic response, renal fxn and electrolytes, resume Losartan once renal function stabilizes 3. Continue Eliquis 2.5 bid and Lipitor 80 qd, Zetia was d/cande in office 4. Patient and healthcare proxy previously deferred further workup of pulm masses 5. PT->SNF J
--- NOTE | 2017-02-01 12:51 | PN ---
Progress Note (short form) - Note Progress Note: Renal follow up for DARNELL on CKD Pt seen and examined at the bedside feels sob, denies cough, N/V/D Vital Signs Temperature 97.9 F 02/01/17 10:00 Pulse Rate 68 02/01/17 10:00 Respiratory Rate 20 02/01/17 10:00 Blood Pressure 102/62 02/01/17 10:00 O2 Sat by Pulse Oximetry (%) 99 02/01/17 10:00 Gen: NAD, awake and alert CVS: RRR, No M/R Lungs: + rales at lung bases Abd: soft NT/ND Ext: 1-2+ edema in LE B/L Neuro: AAOX3, slow, confused CBC, BMP 02/01/17 06:00 02/01/17 06:00 Laboratory Tests 02/01/17 06:00 Calcium 8.4 L Phosphorus 3.7 Magnesium 3.1 H Albumin 2.8 L Current Medications Acetaminophen (Tylenol -) 650 mg PO Q4H PRN PRN Reason: FEVER OR PAIN Last Admin: 01/31/17 21:20 Dose: 650 mg Apixaban (Eliquis -) 2.5 mg PO BID [facility] Last Admin: 02/01/17 09:50 Dose: 2.5 mg Atorvastatin Calcium (Lipitor -) 80 mg PO HS [facility] Last Admin: 01/31/17 21:20 Dose: 80 mg Carvedilol (Coreg -) 6.25 mg PO DAILY [facility] Last Admin: 02/01/17 09:49 Dose: 6.25 mg Docusate Sodium (Colace -) 100 mg PO BID [facility] Last Admin: 02/01/17 09:49 Dose: 100 mg Furosemide (Lasix Injection -) 40 mg IVPUSH BID@0600,1400 [facility] Ondansetron HCl (Zofran Injection) 4 mg IVPB Q6H PRN PRN Reason: NAUSEA Polyethylene Glycol (Miralax (For Daily Use) -) 17 gm PO DAILY [facility] Last Admin: 02/01/17 09:50 Dose: 17 grams Tamsulosin HCl (Flomax -) 0.4 mg PO AM [facility] Last Admin: 02/01/17 06:14 Dose: 0.4 mg A/p 86 year old gentleman with PMhx of CAD s/p PCI and stenting, CHF, BPH, CKD ( baseline line Cr 1.4?)Hypertension who presented with AMS/Confusion at home and found to have BUN/Cr of 98/2.2. #DARNELL on CKD Renal function unchanged off IVF pt with signs of volume overload FeUrea was 28% indicating pre-renal state Will start Lasix 40mg IV BID Trend BUN/Cr and electrolytes Renal US showed no obstruction #CHF (?Amyloid appearance on EcHO) Pt with signs of volume overload cardiology evaluation #AMS/Confusion/Dementia work up as per primary #BPH On Flomax Dunn in place #Abnormal Solon/Lamda ratio consider Heme thelma Edmondson DO
[2017-02-01] MEDS: FUROSEMIDE 40 MG/4 ML INJECTABLE VIAL IVPUSH SCH ×2 (12:54→14:20)
--- NOTE | 2017-02-01 17:00 | PN ---
Progress Note, Physician Chief Complaint: Mr Wisdom is more confused today. Says he does not know what is going on. Unable to answer further questions. - Current Medication List Current Medications: Active Medications Acetaminophen (Tylenol -) 650 mg PO Q4H PRN PRN Reason: FEVER OR PAIN Last Admin: 01/31/17 21:20 Dose: 650 mg Apixaban (Eliquis -) 2.5 mg PO BID [facility] Last Admin: 02/01/17 09:50 Dose: 2.5 mg Atorvastatin Calcium (Lipitor -) 80 mg PO HS [facility] Last Admin: 01/31/17 21:20 Dose: 80 mg Carvedilol (Coreg -) 6.25 mg PO DAILY [facility] Last Admin: 02/01/17 09:49 Dose: 6.25 mg Docusate Sodium (Colace -) 100 mg PO BID [facility] Last Admin: 02/01/17 09:49 Dose: 100 mg Furosemide (Lasix Injection -) 40 mg IVPUSH BID@0600,1400 [facility] Last Admin: 02/01/17 14:20 Dose: Not Given Ondansetron HCl (Zofran Injection) 4 mg IVPB Q6H PRN PRN Reason: NAUSEA Polyethylene Glycol (Miralax (For Daily Use) -) 17 gm PO DAILY [facility] Last Admin: 02/01/17 09:50 Dose: 17 grams Tamsulosin HCl (Flomax -) 0.4 mg PO AM [facility] Last Admin: 02/01/17 06:14 Dose: 0.4 mg - Objective Vital Signs: Vital Signs Temperature 98.1 F 02/01/17 14:58 Pulse Rate 72 02/01/17 14:58 Respiratory Rate 20 02/01/17 14:58 Blood Pressure 110/71 02/01/17 14:58 O2 Sat by Pulse Oximetry (%) 99 02/01/17 10:00 Constitutional: Yes: Well Nourished, No Distress, Calm Cardiovascular: Yes: Regular Rate and Rhythm. No: Gallop, Murmur, Rub Respiratory: Yes: Regular, CTA Bilaterally. No: Rales, Rhonchi, Wheezes Gastrointestinal: Yes: Normal Bowel Sounds, Soft, Distention. No: Tenderness Extremities: Yes: WNL Edema: Yes Edema: LLE: 1+, RLE: 1+ Labs: CBC, BMP 02/01/17 06:00 02/01/17 06:00 Problem List - Problems (1) Acute metabolic encephalopathy Code(s): G93.41 - METABOLIC ENCEPHALOPATHY (2) Dnwci-im-fxfomgl kidney injury Code(s): N17.9 - ACUTE KIDNEY FAILURE, UNSPECIFIED N18.9 - CHRONIC KIDNEY DISEASE, UNSPECIFIED (3) Elevated troponin Code(s): R79.89 - OTHER SPECIFIED ABNORMAL FINDINGS OF BLOOD CHEMISTRY (4) Atrial fibrillation Code(s): I48.91 - UNSPECIFIED ATRIAL FIBRILLATION Qualifiers: Atrial fibrillation type: chronic Qualified Code(s): I48.2 - Chronic atrial fibrillation (5) BPH (benign prostatic hyperplasia) Code(s): N40.0 - BENIGN PROSTATIC HYPERPLASIA WITHOUT LOWER URINRY TRACT SYMP (6) CHF (congestive heart failure) Code(s): I50.9 - HEART FAILURE, UNSPECIFIED Qualifiers: Congestive heart failure type: diastolic Congestive heart failure chronicity: chronic Qualified Code(s): I50.32 - Chronic diastolic ( congestive) heart failure (7) Coronary artery disease Code(s): I25.10 - ATHSCL HEART DISEASE OF [place] CORONARY ARTERY W/O ANG PCTRS Qualifiers: Coronary Disease-Associated Artery/Lesion type: [place] artery [place] vs. transplanted heart: [place] heart Associated angina: without angina Qualified Code(s): I25.10 - Atherosclerotic heart disease of [place] coronary artery without angina pectoris (8) HLD (hyperlipidemia) Code(s): E78.5 - HYPERLIPIDEMIA, UNSPECIFIED Qualifiers: Hyperlipidemia type: pure hypercholesterolemia Qualified Code(s): E78.00 - Pure hypercholesterolemia, unspecified; E78.0 - Pure hypercholesterolemia (9) HTN (hypertension) Code(s): I10 - ESSENTIAL (PRIMARY) HYPERTENSION Qualifiers: Hypertension type: essential hypertension Qualified Code(s): I10 - Essential (primary) hypertension (10) Abdominal distension Code(s): R14.0 - ABDOMINAL DISTENSION (GASEOUS) Assessment/Plan (1) Acute metabolic encephalopathy Assessment/Plan: -worsened today -continue to monitor -appreciate nephrology and cardiac assistance Code(s): G93.41 - METABOLIC ENCEPHALOPATHY (2) Istdo-sk-qfmtsvd kidney injury Assessment/Plan: -BUN elevated above normal -however fluid overload -case d/w nephrology, plan for diuresis today Code(s): N17.9 - ACUTE KIDNEY FAILURE, UNSPECIFIED N18.9 - CHRONIC KIDNEY DISEASE, UNSPECIFIED (3) Elevated troponin Assessment/Plan: -appreciate cardiology assistance -no further work up needed Code(s): R79.89 - OTHER SPECIFIED ABNORMAL FINDINGS OF BLOOD CHEMISTRY (4) Atrial fibrillation Assessment/Plan: -continue eliquis and coreg Code(s): I48.91 - UNSPECIFIED ATRIAL FIBRILLATION Qualifiers: Atrial fibrillation type: chronic Qualified Code(s): I48.2 - Chronic atrial fibrillation (5) BPH (benign prostatic hyperplasia) Assessment/Plan: -continue flomax Code(s): N40.0 - [place] PROSTATIC HYPERPLASIA WITHOUT LOWER URINRY TRACT SYMP (6) CHF (congestive heart failure) Assessment/Plan: -fluid overloaded -appreciate cardiology assistance -IV lasix Code(s): I50.9 - HEART FAILURE, UNSPECIFIED Qualifiers: Congestive heart failure type: diastolic Congestive heart failure chronicity: chronic Qualified Code(s): I50.32 - Chronic diastolic ( congestive) heart failure (7) Coronary artery disease Assessment/Plan: -cardiology following -appreciate assistance Code(s): I25.10 - ATHSCL HEART DISEASE OF [place] CORONARY ARTERY W/O ANG PCTRS Qualifiers: Coronary Disease-Associated Artery/Lesion type: [place] artery [place] vs. transplanted heart: [place] heart Associated angina: without angina Qualified Code(s): I25.10 - Atherosclerotic heart disease of [place] coronary artery without angina pectoris (8) HLD (hyperlipidemia) Assessment/Plan: -continue statin Code(s): E78.5 - HYPERLIPIDEMIA, UNSPECIFIED Qualifiers: Hyperlipidemia type: pure hypercholesterolemia (9) HTN (hypertension) Assessment/Plan: -controlled Code(s): I10 - ESSENTIAL (PRIMARY) HYPERTENSION Qualifiers: Hypertension type: essential hypertension Qualified Code(s): I10 - Essential (primary) hypertension (10) Abdominal distension Assessment/Plan: -secondary to constipation Code(s): R14.0 - ABDOMINAL DISTENSION (GASEOUS)
[2017-02-01] MEDS: ATORVASTATIN CA 80 MG TABLET (FP) PO SCH (22:05)
[2017-02-02] MEDS: FUROSEMIDE 40 MG/4 ML INJECTABLE VIAL IVPUSH SCH ×2 (06:07→14:41)
[2017-02-02] MEDS: TAMSULOSIN HCL 0.4 MG CAP.ER.24H (FP) PO SCH (06:26)
[2017-02-02 07:36] LABS: BASOPHIL 0.6 % (0-2.0); EOSINOPHIL 4.9 % (0-4.5); MCH 29.3 pg (25.7-33.7); MCHC 32.3 g/dl (32.0-35.9); MEAN CELL VOLUME 90.9 fl (80-96); MEAN PLT VOLUME 8.7 fl (7.5-11.1); NEUTROPHILS 81.6 % (42.8-82.8); PLATELET COUNT 161 K/MM3 (134-434); RDW 19.5 % (11.9-15.9)
[2017-02-02] MEDS ORDERED: PT OWN MED DRAWER 7, Y5N ONE ×2 (09:16→20:56)
[2017-02-02] MEDS: DOCUSATE SODIUM 100 MG CAPSULE (FP) PO SCH ×2 (09:28→21:36)
[2017-02-02] MEDS: POLYETHYLENE GLYCOL 3350 119 GM BTL PO SCH (09:28)
[2017-02-02] MEDS: APIXABAN 2.5 MG TABLET PO SCH ×2 (09:28→21:36)
[2017-02-02] MEDS: CARVEDILOL 6.25 MG TABLET (FP) PO SCH (09:28)
--- NOTE | 2017-02-02 09:38 | PN ---
Progress Note (short form) - Note Progress Note: Patient confused but comfortable. Metabolic encephalopathy. Seen by renal <> volume overload suspected. IV Lasix ordered. Elevated BUN / CR with hy of CKD with DARNELL . Selected Entries 02/02/17 02/02/17 05:40 06:00 Temperature 97.8 F Pulse Rate 76 Respiratory 20 Rate Blood Pressure 111/75 Weight 145 lb 9.6 oz Laboratory Tests 02/01/17 02/02/17 06:00 06:00 WBC 10.0 RBC 3.95 L Hgb 11.6 L Hct 35.9 Plt Count 161 Sodium 143 Potassium 4.5 Chloride 109 H Carbon Dioxide 27 Anion Gap 7 L BUN 71 H Creatinine 2.1 H Creat Clearance w eGFR 29.95 Random Glucose 121 H Calcium 8.4 L Phosphorus 3.7 Magnesium 3.1 H Total Bilirubin 1.0 AST 20 ALT 29 Alkaline Phosphatase 135 H Total Protein 6.3 L Albumin 2.8 L P/E <> AWAKE / CONFUSED <> NO DISTRESS. HEENT <> NECK SUPPLE / CAROTIDS 2 + COR <> S 1 S 2 IRREG CHEST <> FEW SCATTERED RHONCHI ABD <> DISTENDED <> NON TENDER. EXT <> NO CALF TENDERNESS / 2 + STASIS EDEMA. IMP : METABOLIC ENCEPHALOPATHY ACUTE ON CHRONIC KIDNEY VOLUME OVERLOAD CHF BPH HTN HYPERLIPIDEMIA ABDOMINAL DISTENTION. CAD PLAN : LASIX PER RENAL CAREFUL MONITORING OF RENAL FX NO CHANGE IN CARDIAC MEDS. FLOMAX FOR BPH. CONTINUE ELIQUIS WITH A FIB.
[2017-02-02 12:07] LABS: CALCIUM 8.3 mg/dL (8.5-10.1)
[2017-02-02 12:09] LABS: CREATININE 2.2 mg/dL (0.7-1.3); PHOSPHOROUS 3.8 mg/dL (2.5-4.9)
--- NOTE | 2017-02-02 13:08 | PN ---
Progress Note (short form) - Note Progress Note: Renal follow up for DARNELL on CKD Pt seen and examined at the bedside feels better today no apetite s/p IV lasix Vital Signs Temperature 97.8 F 02/02/17 05:40 Pulse Rate 76 02/02/17 05:40 Respiratory Rate 20 02/02/17 05:40 Blood Pressure 111/75 02/02/17 05:40 O2 Sat by Pulse Oximetry (%) 98 02/01/17 19:54 Intake & Output 01/30/17 01/31/17 02/01/17 02/02/17 23:59 23:59 23:59 23:59 Intake Total 924 918 600 Output Total 1100 1100 800 100 Balance -176 -182 -200 -100 Weight 142 lb 6 oz 144 lb 5 oz 145 lb 9.6 oz Gen: NAD, awake and alert CVS: RRR, No M/R Lungs: + rales at lung bases Abd: soft NT/ND Ext: 1-2+ edema in LE B/L Neuro: AAOX3, slow, confused CBC, BMP 02/02/17 06:00 02/02/17 06:00 Current Medications Acetaminophen (Tylenol -) 650 mg PO Q4H PRN PRN Reason: FEVER OR PAIN Last Admin: 01/31/17 21:20 Dose: 650 mg Apixaban (Eliquis -) 2.5 mg PO BID [facility] Last Admin: 02/02/17 09:28 Dose: 2.5 mg Atorvastatin Calcium (Lipitor -) 80 mg PO HS [facility] Last Admin: 02/01/17 22:05 Dose: 80 mg Carvedilol (Coreg -) 6.25 mg PO DAILY [facility] Last Admin: 02/02/17 09:28 Dose: 6.25 mg Docusate Sodium (Colace -) 100 mg PO BID [facility] Last Admin: 02/02/17 09:28 Dose: 100 mg Furosemide (Lasix Injection -) 40 mg IVPUSH BID@0600,1400 [facility] Last Admin: 02/02/17 06:07 Dose: 40 mg Ondansetron HCl (Zofran Injection) 4 mg IVPB Q6H PRN PRN Reason: NAUSEA Polyethylene Glycol (Miralax (For Daily Use) -) 17 gm PO DAILY [facility] Last Admin: 02/02/17 09:28 Dose: 17 grams Tamsulosin HCl (Flomax -) 0.4 mg PO AM [facility] Last Admin: 02/02/17 06:26 Dose: 0.4 mg A/p 86 year old gentleman with PMhx of CAD s/p PCI and stenting, CHF, BPH, CKD ( baseline line Cr 1.4?)Hypertension who presented with AMS/Confusion at home and found to have BUN/Cr of 98/2.2. #DARNELL on CKD Renal function stable on IV lasix clinically improved continue IV lasix BID for now trend BUN/Cr and electrolytes #CHF (?Amyloid appearance on EcHO) Pt with signs of volume overload cardiology evaluation #AMS/Confusion/Dementia work up as per primary #BPH On Flomax Dunn in place Devin Edmondson DO
[2017-02-02] MEDS: ATORVASTATIN CA 80 MG TABLET (FP) PO SCH (21:36)
[2017-02-03] MEDS: TAMSULOSIN HCL 0.4 MG CAP.ER.24H (FP) PO SCH (06:12)
[2017-02-03] MEDS: FUROSEMIDE 40 MG/4 ML INJECTABLE VIAL IVPUSH SCH ×2 (06:12→14:07)
--- NOTE | 2017-02-03 07:34 | PN ---
Progress Note (short form) - Note Progress Note: Patient remains confused / no distress / <> ++metabolic encephalopathy. IV Lasix for volume overload. No respiratory distress. Stable BUN / CR DARNELL . Labs from today pending. Constipation with abdominal distention <> had BM yesterday . Selected Entries Laboratory Tests Selected Entries 02/03/17 05:00 Temperature 97.5 F L Pulse Rate 85 Respiratory 20 Rate Blood Pressure 128/69 P/E <> CONFUSED <> NO DISTRESS. HEENT <> NECK SUPPLE / CAROTIDS 2 + COR <> S 1 S 2 IRREG CHEST <>RHONCHI AT BASES. ABD <> MILD DISTENION <> NON TENDER. EXT <> 1 + STASIS EDEMA. IMP : METABOLIC ENCEPHALOPATHY ACUTE ON CHRONIC KIDNEY VOLUME OVERLOAD CHF BPH HTN HYPERLIPIDEMIA ABDOMINAL DISTENTION. CAD PLAN :GOOD RESPONSE TO LASIX <> CONTINUE PER RENAL AWAITING LABS / BUN / CR YESTERDAY STABLE. / LYTES STABLE. CARDIAC STABLE <> A FIB. CONTINUE ELIQUIS.
[2017-02-03 07:36] LABS: BASOPHIL 0.4 % (0-2.0); EOSINOPHIL 3.2 % (0-4.5); MCH 29.6 pg (25.7-33.7); MCHC 32.7 g/dl (32.0-35.9); MEAN CELL VOLUME 90.3 fl (80-96); MEAN PLT VOLUME 8.6 fl (7.5-11.1); NEUTROPHILS 83.4 % (42.8-82.8); PLATELET COUNT 165 K/MM3 (134-434); RDW 19.2 % (11.9-15.9); WHITE BLOOD COUNT 9.4 K/mm3 (4.0-10.0)
[2017-02-03 08:26] LABS: CALCIUM 8.3 mg/dL (8.5-10.1); CREATININE 2.3 mg/dL (0.7-1.3); MAGNESIUM 3.1 mg/dL (1.8-2.4); PHOSPHOROUS 3.7 mg/dL (2.5-4.9)
[2017-02-03] MEDS ORDERED: PT OWN MED DRAWER 7, Y5N ONE (09:10)
[2017-02-03] MEDS: DOCUSATE SODIUM 100 MG CAPSULE (FP) PO SCH ×2 (09:22→21:06)
[2017-02-03] MEDS: APIXABAN 2.5 MG TABLET PO SCH ×2 (09:22→21:06)
[2017-02-03] MEDS: CARVEDILOL 6.25 MG TABLET (FP) PO SCH (09:22)
[2017-02-03] MEDS: POLYETHYLENE GLYCOL 3350 119 GM BTL PO SCH (09:22)
[2017-02-03] MEDS: ALBUTEROL SO4 0.083% IH SOL 2.5 MG/3 ML VIAL.NEB. NEB PRN (11:24)
--- NOTE | 2017-02-03 11:45 | PN ---
Progress Note, Physician History of Present Illness: Mental status at baseline, OOB to chair. - Current Medication List Current Medications: Active Medications Acetaminophen (Tylenol -) 650 mg PO Q4H PRN PRN Reason: FEVER OR PAIN Last Admin: 01/31/17 21:20 Dose: 650 mg Albuterol Sulfate (Ventolin 0.083% Nebulizer Soln -) 1 amp NEB Q4H PRN PRN Reason: SHORT OF BREATH/WHEEZING Last Admin: 02/03/17 11:24 Dose: 1 amp Apixaban (Eliquis -) 2.5 mg PO BID [facility] Last Admin: 02/03/17 09:22 Dose: 2.5 mg Atorvastatin Calcium (Lipitor -) 80 mg PO HS [facility] Last Admin: 02/02/17 21:36 Dose: 80 mg Carvedilol (Coreg -) 6.25 mg PO DAILY [facility] Last Admin: 02/03/17 09:22 Dose: 6.25 mg Docusate Sodium (Colace -) 100 mg PO BID [facility] Last Admin: 02/03/17 09:22 Dose: 100 mg Furosemide (Lasix Injection -) 40 mg IVPUSH BID@0600,1400 [facility] Last Admin: 02/03/17 06:12 Dose: 40 mg Ondansetron HCl (Zofran Injection) 4 mg IVPB Q6H PRN PRN Reason: NAUSEA Polyethylene Glycol (Miralax (For Daily Use) -) 17 gm PO DAILY [facility] Last Admin: 02/03/17 09:22 Dose: 17 grams Tamsulosin HCl (Flomax -) 0.4 mg PO AM [facility] Last Admin: 02/03/17 06:12 Dose: 0.4 mg - Objective Vital Signs: Vital Signs Temperature 97.8 F 02/03/17 09:21 Pulse Rate 91 H 02/03/17 09:21 Respiratory Rate 20 02/03/17 09:21 Blood Pressure 101/55 02/03/17 09:21 O2 Sat by Pulse Oximetry (%) 97 02/02/17 21:00 Constitutional: Yes: No Distress, Calm Neck: Yes: Supple Cardiovascular: Yes: Regular Rate and Rhythm Respiratory: Yes: Regular, Diminished, On Nasal O2 Gastrointestinal: Yes: Normal Bowel Sounds, Soft Edema: No Labs: CBC, BMP 02/03/17 06:00 02/03/17 06:00 Problem List - Problems (1) Elevated troponin Code(s): R79.89 - OTHER SPECIFIED ABNORMAL FINDINGS OF BLOOD CHEMISTRY (2) Acute metabolic encephalopathy Code(s): G93.41 - METABOLIC ENCEPHALOPATHY (3) Wgums-sz-sckpyhv kidney injury Code(s): N17.9 - ACUTE KIDNEY FAILURE, UNSPECIFIED N18.9 - CHRONIC KIDNEY DISEASE, UNSPECIFIED (4) Atrial fibrillation Code(s): I48.91 - UNSPECIFIED ATRIAL FIBRILLATION Qualifiers: Atrial fibrillation type: chronic Qualified Code(s): I48.2 - Chronic atrial fibrillation (5) CKD (chronic kidney disease) Code(s): N18.9 - CHRONIC KIDNEY DISEASE, UNSPECIFIED Qualifiers: Chronic kidney disease stage: stage 2 (mild) Qualified Code(s): N18.2 - Chronic kidney disease, stage 2 (mild) (6) Coronary artery disease Code(s): I25.10 - ATHSCL HEART DISEASE OF [place] CORONARY ARTERY W/O ANG PCTRS Qualifiers: Coronary Disease-Associated Artery/Lesion type: [place] artery [place] vs. transplanted heart: [place] heart Associated angina: without angina Qualified Code(s): I25.10 - Atherosclerotic heart disease of [place] coronary artery without angina pectoris (7) Diastolic CHF Code(s): I50.30 - UNSPECIFIED DIASTOLIC (CONGESTIVE) HEART FAILURE Qualifiers : Congestive heart failure chronicity: chronic Qualified Code(s): I50.32 - Chronic diastolic (congestive) heart failure (8) HLD (hyperlipidemia) Code(s): E78.5 - HYPERLIPIDEMIA, UNSPECIFIED Qualifiers: Hyperlipidemia type: pure hypercholesterolemia Qualified Code(s): E78.00 - Pure hypercholesterolemia, unspecified; E78.0 - Pure hypercholesterolemia (9) HTN (hypertension) Code(s): I10 - ESSENTIAL (PRIMARY) HYPERTENSION Qualifiers: Hypertension type: essential hypertension Qualified Code(s): I10 - Essential (primary) hypertension (10) Pleural effusion Code(s): J90 - PLEURAL EFFUSION, NOT ELSEWHERE CLASSIFIED (11) Pulmonary mass Code(s): R91.8 - OTHER NONSPECIFIC ABNORMAL FINDING OF LUNG FIELD (12) Status post coronary artery stent placement Code(s): Z95.5 - PRESENCE OF CORONARY ANGIOPLASTY IMPLANT AND GRAFT (13) Subendocardial ischemia Code(s): I24.8 - OTHER FORMS OF ACUTE ISCHEMIC HEART DISEASE Assessment/Plan 02/09/2016 Echo: Severe cLVH, mild-mod LV systolic dysfunction, mod AR, MR, mild BURT 1.7 cm^2, RVSP 38 mmHg 1. Acute metabolic encephelopathy resolved 2. Acute on chronic kidney injury improved 3. Acute on chronic diastolic CHF, infiltrative cardiomyopathy cannot be excluded 4. CAD post PCI/stent, subendocardial ischemia with trops plateaued 5. HTN 6. Hypercholesterolemia 7. Questionable PAF although no clear documentation 8. Anemia 9. Pulmonary masses with R>L pleural effusion, r/o malignancy PLAN: 1. Continue Carvedilol 6.25 qd as hemodynamics tolerate 2. Decrease IV diuresis initiated with monitor diuretic response, renal fxn and electrolytes, resume Losartan once renal function stabilizes 3. Continue Eliquis 2.5 bid and Lipitor 80 qd, Zetia was d/cande in office 4. Patient and healthcare proxy previously deferred further workup of pulm masses 5. PT->SNF, dysphagia diet
[2017-02-03] MEDS: ATORVASTATIN CA 80 MG TABLET (FP) PO SCH (21:06)
[2017-02-04] MEDS: TAMSULOSIN HCL 0.4 MG CAP.ER.24H (FP) PO SCH (06:48)
--- NOTE | 2017-02-04 11:05 | PN ---
Progress Note, Physician Chief Complaint: Mr Wisdom is very confused. Words slurred, unintelligible - Current Medication List Current Medications: Active Medications Acetaminophen (Tylenol -) 650 mg PO Q4H PRN PRN Reason: FEVER OR PAIN Last Admin: 01/31/17 21:20 Dose: 650 mg Albuterol Sulfate (Ventolin 0.083% Nebulizer Soln -) 1 amp NEB Q4H PRN PRN Reason: SHORT OF BREATH/WHEEZING Last Admin: 02/03/17 11:24 Dose: 1 amp Apixaban (Eliquis -) 2.5 mg PO BID [facility] Last Admin: 02/03/17 21:06 Dose: 2.5 mg Atorvastatin Calcium (Lipitor -) 80 mg PO HS [facility] Last Admin: 02/03/17 21:06 Dose: 80 mg Carvedilol (Coreg -) 6.25 mg PO DAILY [facility] Last Admin: 02/03/17 09:22 Dose: 6.25 mg Docusate Sodium (Colace -) 100 mg PO BID [facility] Last Admin: 02/03/17 21:06 Dose: 100 mg Furosemide (Lasix Injection -) 40 mg IVPUSH DAILY [facility] Ondansetron HCl (Zofran Injection) 4 mg IVPB Q6H PRN PRN Reason: NAUSEA Polyethylene Glycol (Miralax (For Daily Use) -) 17 gm PO DAILY [facility] Last Admin: 02/03/17 09:22 Dose: 17 grams Tamsulosin HCl (Flomax -) 0.4 mg PO AM [facility] Last Admin: 02/04/17 06:48 Dose: 0.4 mg - Objective Vital Signs: Vital Signs Temperature 97.4 F L 02/04/17 05:45 Pulse Rate 86 02/04/17 05:45 Respiratory Rate 20 02/04/17 05:45 Blood Pressure 111/73 02/04/17 05:45 O2 Sat by Pulse Oximetry (%) 98 02/03/17 19:58 Constitutional: Yes: No Distress, Calm, Other (confused) Cardiovascular: Yes: Regular Rate and Rhythm. No: Gallop, Murmur, Rub Respiratory: Yes: Regular, CTA Bilaterally. No: Rales, Rhonchi, Wheezes Gastrointestinal: Yes: Normal Bowel Sounds, Soft. No: Distention, Tenderness Extremities: Yes: WNL Edema: Yes Edema: LLE: Trace, RLE: Trace Labs: CBC, BMP 02/03/17 06:00 02/03/17 06:00 Problem List - Problems (1) Acute metabolic encephalopathy Code(s): G93.41 - METABOLIC ENCEPHALOPATHY (2) Wvejj-zk-eevpsno kidney injury Code(s): N17.9 - ACUTE KIDNEY FAILURE, UNSPECIFIED N18.9 - CHRONIC KIDNEY DISEASE, UNSPECIFIED (3) Elevated troponin Code(s): R79.89 - OTHER SPECIFIED ABNORMAL FINDINGS OF BLOOD CHEMISTRY (4) Atrial fibrillation Code(s): I48.91 - UNSPECIFIED ATRIAL FIBRILLATION Qualifiers: Atrial fibrillation type: chronic Qualified Code(s): I48.2 - Chronic atrial fibrillation (5) BPH (benign prostatic hyperplasia) Code(s): N40.0 - BENIGN PROSTATIC HYPERPLASIA WITHOUT LOWER URINRY TRACT SYMP (6) CHF (congestive heart failure) Code(s): I50.9 - HEART FAILURE, UNSPECIFIED Qualifiers: Congestive heart failure type: diastolic Congestive heart failure chronicity: chronic Qualified Code(s): I50.32 - Chronic diastolic ( congestive) heart failure (7) Coronary artery disease Code(s): I25.10 - ATHSCL HEART DISEASE OF [place] CORONARY ARTERY W/O ANG PCTRS Qualifiers: Coronary Disease-Associated Artery/Lesion type: [place] artery [place] vs. transplanted heart: [place] heart Associated angina: without angina Qualified Code(s): I25.10 - Atherosclerotic heart disease of [place] coronary artery without angina pectoris (8) HLD (hyperlipidemia) Code(s): E78.5 - HYPERLIPIDEMIA, UNSPECIFIED Qualifiers: Hyperlipidemia type: pure hypercholesterolemia Qualified Code(s): E78.00 - Pure hypercholesterolemia, unspecified; E78.0 - Pure hypercholesterolemia (9) HTN (hypertension) Code(s): I10 - ESSENTIAL (PRIMARY) HYPERTENSION Qualifiers: Hypertension type: essential hypertension Qualified Code(s): I10 - Essential (primary) hypertension (10) Abdominal distension Code(s): R14.0 - ABDOMINAL DISTENSION (GASEOUS) Assessment/Plan (1) Acute metabolic encephalopathy Assessment/Plan: -acute worsening today -check head CT since speech is now slurred -check chest x-ray for possible aspiration -check urinalysis for possible UTI Code(s): G93.41 - METABOLIC ENCEPHALOPATHY (2) Ujohh-wf-tcpddah kidney injury Assessment/Plan: -BUN/Cr stable -continue lasix currently Code(s): N17.9 - ACUTE KIDNEY FAILURE, UNSPECIFIED N18.9 - CHRONIC KIDNEY DISEASE, UNSPECIFIED (3) Elevated troponin Assessment/Plan: -appreciate cardiology assistance -no further work up needed Code(s): R79.89 - OTHER SPECIFIED ABNORMAL FINDINGS OF BLOOD CHEMISTRY (4) Atrial fibrillation Assessment/Plan: -continue eliquis and coreg Code(s): I48.91 - UNSPECIFIED ATRIAL FIBRILLATION Qualifiers: Atrial fibrillation type: chronic Qualified Code(s): I48.2 - Chronic atrial fibrillation (5) BPH (benign prostatic hyperplasia) Assessment/Plan: -continue flomax Code(s): N40.0 - BENIGN PROSTATIC HYPERPLASIA WITHOUT LOWER URINRY TRACT SYMP (6) CHF (congestive heart failure) Assessment/Plan: -fluid overloaded -appreciate cardiology assistance -IV lasix Code(s): I50.9 - HEART FAILURE, UNSPECIFIED Qualifiers: Congestive heart failure type: diastolic Congestive heart failure chronicity: chronic Qualified Code(s): I50.32 - Chronic diastolic ( congestive) heart failure (7) Coronary artery disease Assessment/Plan: -cardiology following -appreciate assistance Code(s): I25.10 - ATHSCL HEART DISEASE OF [place] CORONARY ARTERY W/O ANG PCTRS Qualifiers: Coronary Disease-Associated Artery/Lesion type: [place] artery [place] vs. transplanted heart: [place] heart Associated angina: without angina Qualified Code(s): I25.10 - Atherosclerotic heart disease of [place] coronary artery without angina pectoris (8) HLD (hyperlipidemia) Assessment/Plan: -continue statin Code(s): E78.5 - HYPERLIPIDEMIA, UNSPECIFIED Qualifiers: Hyperlipidemia type: pure hypercholesterolemia (9) HTN (hypertension) Assessment/Plan: -controlled Code(s): I10 - ESSENTIAL (PRIMARY) HYPERTENSION Qualifiers: Hypertension type: essential hypertension Qualified Code(s): I10 - Essential (primary) hypertension (10) Abdominal distension Assessment/Plan: -secondary to constipation -continue stool softeners Code(s): R14.0 - ABDOMINAL DISTENSION (GASEOUS)
[2017-02-04] MEDS ORDERED: PT OWN MED DRAWER 7, Y5N ONE (11:13)
[2017-02-04] MEDS: CARVEDILOL 6.25 MG TABLET (FP) PO SCH (11:17)
[2017-02-04] MEDS: DOCUSATE SODIUM 100 MG CAPSULE (FP) PO SCH ×2 (11:17→23:12)
[2017-02-04] MEDS: FUROSEMIDE 40 MG/4 ML INJECTABLE VIAL IVPUSH SCH (11:18)
[2017-02-04] MEDS: POLYETHYLENE GLYCOL 3350 119 GM BTL PO SCH (11:18)
[2017-02-04] MEDS: APIXABAN 2.5 MG TABLET PO SCH ×2 (11:18→23:12)
[2017-02-04] MEDS ORDERED: HALOPERIDOL LACTATE 5 MG/ML IM ONE (12:32)
--- NOTE | 2017-02-04 12:40 | PN ---
Progress Note, JOB DEVELOPER - Note Progress Note: Seen on stretcher, quite confused. Selected Entries 02/03/17 02/03/17 02/03/17 05:00 09:21 10:25 Breakfast 25% Lunch Supper Temperature 97.5 F L 97.8 F 02/03/17 02/03/17 02/03/17 14:03 18:00 19:01 Breakfast Lunch 50% Supper 50% Temperature 97.4 F L 97.2 F L 02/03/17 02/04/17 19:54 05:45 Breakfast Lunch Supper Temperature 97.8 F 97.4 F L Laboratory Tests 02/02/17 02/03/17 06:00 06:00 WBC 10.0 9.4 Tolerating diet. MBS reviewed with staff.
--- NOTE | 2017-02-04 12:47 | PN ---
Progress Note, Physician History of Present Illness: Mental status altered, off to HCT. - Current Medication List Current Medications: Active Medications Acetaminophen (Tylenol -) 650 mg PO Q4H PRN PRN Reason: FEVER OR PAIN Last Admin: 01/31/17 21:20 Dose: 650 mg Albuterol Sulfate (Ventolin 0.083% Nebulizer Soln -) 1 amp NEB Q4H PRN PRN Reason: SHORT OF BREATH/WHEEZING Last Admin: 02/03/17 11:24 Dose: 1 amp Apixaban (Eliquis -) 2.5 mg PO BID [facility] Last Admin: 02/04/17 11:18 Dose: 2.5 mg Atorvastatin Calcium (Lipitor -) 80 mg PO HS [facility] Last Admin: 02/03/17 21:06 Dose: 80 mg Carvedilol (Coreg -) 6.25 mg PO DAILY [facility] Last Admin: 02/04/17 11:17 Dose: 6.25 mg Docusate Sodium (Colace -) 100 mg PO BID [facility] Last Admin: 02/04/17 11:17 Dose: 100 mg Furosemide (Lasix Injection -) 40 mg IVPUSH DAILY [facility] Last Admin: 02/04/17 11:18 Dose: 40 mg Ondansetron HCl (Zofran Injection) 4 mg IVPB Q6H PRN PRN Reason: NAUSEA Polyethylene Glycol (Miralax (For Daily Use) -) 17 gm PO DAILY [facility] Last Admin: 02/04/17 11:18 Dose: 17 grams Tamsulosin HCl (Flomax -) 0.4 mg PO AM [facility] Last Admin: 02/04/17 06:48 Dose: 0.4 mg - Objective Vital Signs: Vital Signs Temperature 97.4 F L 02/04/17 05:45 Pulse Rate 86 02/04/17 05:45 Respiratory Rate 20 02/04/17 05:45 Blood Pressure 111/73 02/04/17 05:45 O2 Sat by Pulse Oximetry (%) 98 02/03/17 19:58 Constitutional: Yes: Anxious Neck: Yes: Supple Cardiovascular: Yes: Regular Rate and Rhythm Respiratory: Yes: Regular, Diminished Gastrointestinal: Yes: Normal Bowel Sounds, Soft Edema: No Labs: CBC, BMP 02/03/17 06:00 02/03/17 06:00 Problem List - Problems (1) Elevated troponin Code(s): R79.89 - OTHER SPECIFIED ABNORMAL FINDINGS OF BLOOD CHEMISTRY (2) Acute metabolic encephalopathy Code(s): G93.41 - METABOLIC ENCEPHALOPATHY (3) Hgvtc-yy-aovrxqm kidney injury Code(s): N17.9 - ACUTE KIDNEY FAILURE, UNSPECIFIED N18.9 - CHRONIC KIDNEY DISEASE, UNSPECIFIED (4) Atrial fibrillation Code(s): I48.91 - UNSPECIFIED ATRIAL FIBRILLATION Qualifiers: Atrial fibrillation type: chronic Qualified Code(s): I48.2 - Chronic atrial fibrillation (5) CKD (chronic kidney disease) Code(s): N18.9 - CHRONIC KIDNEY DISEASE, UNSPECIFIED Qualifiers: Chronic kidney disease stage: stage 2 (mild) Qualified Code(s): N18.2 - Chronic kidney disease, stage 2 (mild) (6) Coronary artery disease Code(s): I25.10 - ATHSCL HEART DISEASE OF [place] CORONARY ARTERY W/O ANG PCTRS Qualifiers: Coronary Disease-Associated Artery/Lesion type: [place] artery [place] vs. transplanted heart: [place] heart Associated angina: without angina Qualified Code(s): I25.10 - Atherosclerotic heart disease of [place] coronary artery without angina pectoris (7) Diastolic CHF Code(s): I50.30 - UNSPECIFIED DIASTOLIC (CONGESTIVE) HEART FAILURE Qualifiers : Congestive heart failure chronicity: chronic Qualified Code(s): I50.32 - Chronic diastolic (congestive) heart failure (8) HLD (hyperlipidemia) Code(s): E78.5 - HYPERLIPIDEMIA, UNSPECIFIED Qualifiers: Hyperlipidemia type: pure hypercholesterolemia Qualified Code(s): E78.00 - Pure hypercholesterolemia, unspecified; E78.0 - Pure hypercholesterolemia (9) HTN (hypertension) Code(s): I10 - ESSENTIAL (PRIMARY) HYPERTENSION Qualifiers: Hypertension type: essential hypertension Qualified Code(s): I10 - Essential (primary) hypertension (10) Pleural effusion Code(s): J90 - PLEURAL EFFUSION, NOT ELSEWHERE CLASSIFIED (11) Pulmonary mass Code(s): R91.8 - OTHER NONSPECIFIC ABNORMAL FINDING OF LUNG FIELD (12) Status post coronary artery stent placement Code(s): Z95.5 - PRESENCE OF CORONARY ANGIOPLASTY IMPLANT AND GRAFT (13) Subendocardial ischemia Code(s): I24.8 - OTHER FORMS OF ACUTE ISCHEMIC HEART DISEASE Assessment/Plan 02/09/2016 Echo: Severe cLVH, mild-mod LV systolic dysfunction, mod AR, MR, mild BURT 1.7 cm^2, RVSP 38 mmHg 1. Altered mental status 2. Acute on chronic kidney injury improved 3. Acute on chronic diastolic CHF, infiltrative cardiomyopathy cannot be excluded 4. CAD post PCI/stent, subendocardial ischemia with trops plateaued 5. HTN 6. Hypercholesterolemia 7. Questionable PAF although no clear documentation 8. Anemia 9. Pulmonary masses with R>L pleural effusion, r/o malignancy PLAN: 1. F/u HCT, abg 2. Continue Carvedilol 6.25 qd as hemodynamics tolerate 3. Decrease IV diuresis initiated with monitor diuretic response, renal fxn and electrolytes, resume Losartan once renal function stabilizes 4. Continue Eliquis 2.5 bid and Lipitor 80 qd, Zetia was d/cande in office 5. Patient and healthcare proxy previously deferred further workup of pulm masses 6. PT->SNF, dysphagia diet
[2017-02-04 14:19] LABS: URINE APPEARANCE SLCLOUDY; URINE BILIRUBIN NEGATIVE (NEGATIVE); URINE COLOR YELLOW; URINE GLUCOSE (UA) NEGATIVE (NEGATIVE); URINE KETONE NEGATIVE (NEGATIVE); URINE NITRITE NEGATIVE (NEGATIVE); URINE UROBILINOGEN NEGATIVE E.U./dl (0.2-1.0)
[2017-02-04 14:30] LABS: URINE BLOOD 3+ (NEGATIVE); URINE LEUK ESTERASE 1+ (NEGATIVE); URINE PROTEIN 2+ (NEGATIVE)
[2017-02-04 14:36] LABS: URINE HYALINE CAST 37 /lpf; URINE MUCUS RARE; URINE RBC 59 /hpf (0-3); URINE WBC 2 /hpf (3-5)
--- NOTE | 2017-02-04 15:42 | PN ---
Progress Note (short form) - Note Progress Note: Renal follow up for DARNELL on CKD Pt seen and examined at the bedside awake and alert but not taking much, has mouth open answering questions denies sob or pain Vital Signs Temperature 97.3 F L 02/04/17 14:11 Pulse Rate 90 02/04/17 14:11 Respiratory Rate 20 02/04/17 14:11 Blood Pressure 106/65 02/04/17 14:11 O2 Sat by Pulse Oximetry (%) 98 02/03/17 19:58 Gen: NAD, awake and alert CVS: RRR, No M/R Lungs: + rales at lung bases Abd: soft NT/ND Ext: 1-2+ edema in LE B/L Neuro: AAOX3, slow, confused CBC, BMP 02/03/17 06:00 02/03/17 06:00 Current Medications Acetaminophen (Tylenol -) 650 mg PO Q4H PRN PRN Reason: FEVER OR PAIN Last Admin: 01/31/17 21:20 Dose: 650 mg Albuterol Sulfate (Ventolin 0.083% Nebulizer Soln -) 1 amp NEB Q4H PRN PRN Reason: SHORT OF BREATH/WHEEZING Last Admin: 02/03/17 11:24 Dose: 1 amp Apixaban (Eliquis -) 2.5 mg PO BID [facility] Last Admin: 02/04/17 11:18 Dose: 2.5 mg Atorvastatin Calcium (Lipitor -) 80 mg PO HS [facility] Last Admin: 02/03/17 21:06 Dose: 80 mg Carvedilol (Coreg -) 6.25 mg PO DAILY [facility] Last Admin: 02/04/17 11:17 Dose: 6.25 mg Docusate Sodium (Colace -) 100 mg PO BID [facility] Last Admin: 02/04/17 11:17 Dose: 100 mg Furosemide (Lasix Injection -) 40 mg IVPUSH DAILY [facility] Last Admin: 02/04/17 11:18 Dose: 40 mg Ondansetron HCl (Zofran Injection) 4 mg IVPB Q6H PRN PRN Reason: NAUSEA Polyethylene Glycol (Miralax (For Daily Use) -) 17 gm PO DAILY [facility] Last Admin: 02/04/17 11:18 Dose: 17 grams Tamsulosin HCl (Flomax -) 0.4 mg PO AM [facility] Last Admin: 02/04/17 06:48 Dose: 0.4 mg A/p 86 year old gentleman with PMhx of CAD s/p PCI and stenting, CHF, BPH, CKD ( baseline line Cr 1.4?)Hypertension who presented with AMS/Confusion at home and found to have BUN/Cr of 98/2.2. #DARNELL on CKD BUN/Cr with mild increase Lasix reduced to once daily continues to show signs of volume expansion but is improved Renal dysfunction has been progressive since -? underlying disorder as pt with abnormal kappa/lamda ratio (Membrenous GN, paraproteinemia) discussed case with daughter and they would like not to pursue any aggressive diagnostic testing and their goal is to stabilize and allow for comfort if possible Continue to trend BUN/Cr Continue IV lasix and titrate to goal of evolemia no indication for [employer]ECTIVE [employer]CIN[employer] Dose all meds for Cr Cl less then 25 Devin Edmondson DO
[2017-02-04] MEDS: ATORVASTATIN CA 80 MG TABLET (FP) PO SCH (23:11)
[2017-02-05] MEDS: TAMSULOSIN HCL 0.4 MG CAP.ER.24H (FP) PO SCH (06:49)
[2017-02-05 08:07] LABS: BASOPHIL 0.4 % (0-2.0); EOSINOPHIL 1.8 % (0-4.5); MCH 29.5 pg (25.7-33.7); MCHC 32.3 g/dl (32.0-35.9); MEAN CELL VOLUME 91.4 fl (80-96); MEAN PLT VOLUME 9.2 fl (7.5-11.1); NEUTROPHILS 85.4 % (42.8-82.8); PLATELET COUNT 156 K/MM3 (134-434); RDW 19.9 % (11.9-15.9)
[2017-02-05 08:24] LABS: CALCIUM 8.4 mg/dL (8.5-10.1); CREATININE 2.6 mg/dL (0.7-1.3); MAGNESIUM 3.1 mg/dL (1.8-2.4); PHOSPHOROUS 4.9 mg/dL (2.5-4.9)
[2017-02-05] MEDS ORDERED: PT OWN MED DRAWER 7, Y5N ONE (09:05)
[2017-02-05] MEDS: DOCUSATE SODIUM 100 MG CAPSULE (FP) PO SCH ×2 (09:07→22:54)
[2017-02-05] MEDS: APIXABAN 2.5 MG TABLET PO SCH ×2 (09:07→22:54)
[2017-02-05] MEDS: CARVEDILOL 6.25 MG TABLET (FP) PO SCH ×2 (09:07→09:13)
[2017-02-05] MEDS: POLYETHYLENE GLYCOL 3350 119 GM BTL PO SCH ×2 (09:12→22:54)
--- NOTE | 2017-02-05 12:41 | PN ---
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 On soft diet, thin liquid. Selected Entries 02/04/17 02/05/17 02/05/17 14:11 06:00 10:00 Breakfast 50% Temperature 97.4 F L 98.4 F 02/05/17 10:03 Breakfast 50% Temperature Laboratory Tests 02/03/17 02/05/17 06:00 06:00 WBC 9.4 10.0 Pureed diet recommended due to oral/pharyngeal dyscoordination and weak swallowing function, verified on MBS. Suspect choking risk on solids due to buildup in pharynx. (Refer to mbs results and films) Pending transfer to [facility]. Suggest diet downgrade and continued swallowing tx, per MBS results. Reviewed with staff.
--- NOTE | 2017-02-05 14:37 | PN ---
Progress Note (short form) - Note Progress Note: Renal follow up for DARNELL on CKD Pt seen and examined at the bedside more awake and alert today no chest pain or sob denies any abd pain ate a minimal amount of breakfast Vital Signs Temperature 98.4 F 02/05/17 10:00 Pulse Rate 72 02/05/17 10:00 Respiratory Rate 20 02/05/17 10:00 Blood Pressure 94/42 02/05/17 10:00 O2 Sat by Pulse Oximetry (%) 98 02/05/17 09:00 Intake & Output 02/02/17 02/03/17 02/04/17 02/05/17 23:59 23:59 23:59 23:59 Intake Total 300 150 400 Output Total 600 1200 450 200 Balance -300 -1050 -50 -200 Weight 145 lb 9.6 oz 146 lb 1.6 oz Gen: NAD, awake and alert CVS: RRR, No M/R Lungs: + rales at lung bases Abd: soft NT/ND Ext: 1+ edema in LE B/L Neuro: AAOX3, slow, confused CBC, BMP 02/05/17 06:00 02/05/17 06:00 Current Medications Acetaminophen (Tylenol -) 650 mg PO Q4H PRN PRN Reason: FEVER OR PAIN Last Admin: 01/31/17 21:20 Dose: 650 mg Albuterol Sulfate (Ventolin 0.083% Nebulizer Soln -) 1 amp NEB Q4H PRN PRN Reason: SHORT OF BREATH/WHEEZING Last Admin: 02/03/17 11:24 Dose: 1 amp Apixaban (Eliquis -) 2.5 mg PO BID [facility] Last Admin: 02/05/17 09:07 Dose: 2.5 mg Atorvastatin Calcium (Lipitor -) 80 mg PO HS [facility] Last Admin: 02/04/17 23:11 Dose: 80 mg Carvedilol (Coreg -) 6.25 mg PO DAILY [facility] Last Admin: 02/05/17 09:13 Dose: Not Given Docusate Sodium (Colace -) 100 mg PO BID [facility] Last Admin: 02/05/17 09:07 Dose: 100 mg Furosemide (Lasix Injection -) 40 mg IVPUSH DAILY [facility] Last Admin: 02/04/17 11:18 Dose: 40 mg Ondansetron HCl (Zofran Injection) 4 mg IVPB Q6H PRN PRN Reason: NAUSEA Polyethylene Glycol (Miralax (For Daily Use) -) 17 gm PO DAILY [facility] Last Admin: 02/05/17 09:12 Dose: 17 grams Tamsulosin HCl (Flomax -) 0.4 mg PO AM [facility] Last Admin: 02/05/17 06:49 Dose: 0.4 mg A/p #DARNELL on CKD Renal function up trending in setting of IV lasix hold further lasix for now (already got todays dose), monitor volume and respiratory status Trend BUN/Cr no indication for WOOD POLE [employer]RE[employer] and family wishes not to pursue any aggressive interventions Continue Flomax Prognosis guarded Thank you Devin Edmondson DO
[2017-02-05] MEDS: FUROSEMIDE 40 MG/4 ML INJECTABLE VIAL IVPUSH SCH (14:49)
--- NOTE | 2017-02-05 15:13 | PN ---
Progress Note, Physician Chief Complaint: Mr Wisdom much improved today, closer to baseline. No cp, sob, n/v. - Current Medication List Current Medications: Active Medications Acetaminophen (Tylenol -) 650 mg PO Q4H PRN PRN Reason: FEVER OR PAIN Last Admin: 01/31/17 21:20 Dose: 650 mg Albuterol Sulfate (Ventolin 0.083% Nebulizer Soln -) 1 amp NEB Q4H PRN PRN Reason: SHORT OF BREATH/WHEEZING Last Admin: 02/03/17 11:24 Dose: 1 amp Apixaban (Eliquis -) 2.5 mg PO BID [facility] Last Admin: 02/05/17 09:07 Dose: 2.5 mg Atorvastatin Calcium (Lipitor -) 80 mg PO HS [facility] Last Admin: 02/04/17 23:11 Dose: 80 mg Carvedilol (Coreg -) 6.25 mg PO DAILY [facility] Last Admin: 02/05/17 09:13 Dose: Not Given Docusate Sodium (Colace -) 100 mg PO BID [facility] Last Admin: 02/05/17 09:07 Dose: 100 mg Ondansetron HCl (Zofran Injection) 4 mg IVPB Q6H PRN PRN Reason: NAUSEA Polyethylene Glycol (Miralax (For Daily Use) -) 17 gm PO DAILY [facility] Last Admin: 02/05/17 09:12 Dose: 17 grams Tamsulosin HCl (Flomax -) 0.4 mg PO AM [facility] Last Admin: 02/05/17 06:49 Dose: 0.4 mg - Objective Vital Signs: Vital Signs Temperature 97.4 F L 02/05/17 15:00 Pulse Rate 89 02/05/17 15:00 Respiratory Rate 20 02/05/17 15:00 Blood Pressure 92/51 02/05/17 15:00 O2 Sat by Pulse Oximetry (%) 98 02/05/17 09:00 Constitutional: Yes: Well Nourished, No Distress, Calm Cardiovascular: Yes: Regular Rate and Rhythm. No: Gallop, Murmur, Rub Respiratory: Yes: Regular, CTA Bilaterally. No: Rales, Rhonchi, Wheezes Gastrointestinal: Yes: Normal Bowel Sounds, Soft. No: Distention, Tenderness Extremities: Yes: WNL Edema: No Labs: CBC, BMP 02/05/17 06:00 02/05/17 06:00 Problem List - Problems (1) Acute metabolic encephalopathy Code(s): G93.41 - METABOLIC ENCEPHALOPATHY (2) Fkkrh-hx-lyvycdm kidney injury Code(s): N17.9 - ACUTE KIDNEY FAILURE, UNSPECIFIED N18.9 - CHRONIC KIDNEY DISEASE, UNSPECIFIED (3) Elevated troponin Code(s): R79.89 - OTHER SPECIFIED ABNORMAL FINDINGS OF BLOOD CHEMISTRY (4) Atrial fibrillation Code(s): I48.91 - UNSPECIFIED ATRIAL FIBRILLATION Qualifiers: Atrial fibrillation type: chronic Qualified Code(s): I48.2 - Chronic atrial fibrillation (5) BPH (benign prostatic hyperplasia) Code(s): N40.0 - BENIGN PROSTATIC HYPERPLASIA WITHOUT LOWER URINRY TRACT SYMP (6) CHF (congestive heart failure) Code(s): I50.9 - HEART FAILURE, UNSPECIFIED Qualifiers: Congestive heart failure type: diastolic Congestive heart failure chronicity: chronic Qualified Code(s): I50.32 - Chronic diastolic ( congestive) heart failure (7) Coronary artery disease Code(s): I25.10 - ATHSCL HEART DISEASE OF [place] CORONARY ARTERY W/O ANG PCTRS Qualifiers: Coronary Disease-Associated Artery/Lesion type: [place] artery [place] vs. transplanted heart: [place] heart Associated angina: without angina Qualified Code(s): I25.10 - Atherosclerotic heart disease of [place] coronary artery without angina pectoris (8) HLD (hyperlipidemia) Code(s): E78.5 - HYPERLIPIDEMIA, UNSPECIFIED Qualifiers: Hyperlipidemia type: pure hypercholesterolemia Qualified Code(s): E78.00 - Pure hypercholesterolemia, unspecified; E78.0 - Pure hypercholesterolemia (9) HTN (hypertension) Code(s): I10 - ESSENTIAL (PRIMARY) HYPERTENSION Qualifiers: Hypertension type: essential hypertension Qualified Code(s): I10 - Essential (primary) hypertension (10) Abdominal distension Code(s): R14.0 - ABDOMINAL DISTENSION (GASEOUS) Assessment/Plan (1) Acute metabolic encephalopathy Assessment/Plan: -much improved -continue to monitor Code(s): G93.41 - METABOLIC ENCEPHALOPATHY (2) Wtzrr-hx-agahdla kidney injury Assessment/Plan: -elevated -lasix stopped -nephrology following Code(s): N17.9 - ACUTE KIDNEY FAILURE, UNSPECIFIED N18.9 - CHRONIC KIDNEY DISEASE, UNSPECIFIED (3) Elevated troponin Assessment/Plan: -appreciate cardiology assistance -no further work up needed Code(s): R79.89 - OTHER SPECIFIED ABNORMAL FINDINGS OF BLOOD CHEMISTRY (4) Atrial fibrillation Assessment/Plan: -continue eliquis and coreg Code(s): I48.91 - UNSPECIFIED ATRIAL FIBRILLATION Qualifiers: Atrial fibrillation type: chronic Qualified Code(s): I48.2 - Chronic atrial fibrillation (5) BPH (benign prostatic hyperplasia) Assessment/Plan: -continue flomax Code(s): N40.0 - BENIGN PROSTATIC HYPERPLASIA WITHOUT LOWER URINRY TRACT SYMP (6) CHF (congestive heart failure) Assessment/Plan: -appreciate cardiology assistance -currently dry Code(s): I50.9 - HEART FAILURE, UNSPECIFIED Qualifiers: Congestive heart failure type: diastolic Congestive heart failure chronicity: chronic Qualified Code(s): I50.32 - Chronic diastolic ( congestive) heart failure (7) Coronary artery disease Assessment/Plan: -cardiology following -appreciate assistance Code(s): I25.10 - ATHSCL HEART DISEASE OF [place] CORONARY ARTERY W/O ANG PCTRS Qualifiers: Coronary Disease-Associated Artery/Lesion type: [place] artery [place] vs. transplanted heart: [place] heart Associated angina: without angina Qualified Code(s): I25.10 - Atherosclerotic heart disease of [place] coronary artery without angina pectoris (8) HLD (hyperlipidemia) Assessment/Plan: -continue statin Code(s): E78.5 - HYPERLIPIDEMIA, UNSPECIFIED Qualifiers: Hyperlipidemia type: pure hypercholesterolemia (9) HTN (hypertension) Assessment/Plan: -controlled Code(s): I10 - ESSENTIAL (PRIMARY) HYPERTENSION Qualifiers: Hypertension type: essential hypertension Qualified Code(s): I10 - Essential (primary) hypertension (10) Abdominal distension Assessment/Plan: -secondary to constipation -increase miralax Code(s): R14.0 - ABDOMINAL DISTENSION (GASEOUS)
[2017-02-05] MEDS: ATORVASTATIN CA 80 MG TABLET (FP) PO SCH (22:54)
[2017-02-06] MEDS: TAMSULOSIN HCL 0.4 MG CAP.ER.24H (FP) PO SCH (06:07)
[2017-02-06] MEDS: ALBUTEROL SO4 0.083% IH SOL 2.5 MG/3 ML VIAL.NEB. NEB PRN (06:53)
[2017-02-06 07:38] LABS: BASOPHIL 0.6 % (0-2.0); EOSINOPHIL 4.1 % (0-4.5); MCH 29.3 pg (25.7-33.7); MCHC 32.1 g/dl (32.0-35.9); MEAN CELL VOLUME 91.3 fl (80-96); MEAN PLT VOLUME 8.9 fl (7.5-11.1); NEUTROPHILS 83.1 % (42.8-82.8); PLATELET COUNT 138 K/MM3 (134-434); RDW 19.7 % (11.9-15.9); WHITE BLOOD COUNT 8.9 K/mm3 (4.0-10.0)
[2017-02-06 09:38] LABS: CALCIUM 8.1 mg/dL (8.5-10.1); CREATININE 2.6 mg/dL (0.7-1.3); MAGNESIUM 3.1 mg/dL (1.8-2.4); PHOSPHOROUS 4.7 mg/dL (2.5-4.9)
--- NOTE | 2017-02-06 10:03 | PN ---
Progress Note, Physician History of Present Illness: Sensorium back to baseline. - Current Medication List Current Medications: Active Medications Acetaminophen (Tylenol -) 650 mg PO Q4H PRN PRN Reason: FEVER OR PAIN Last Admin: 01/31/17 21:20 Dose: 650 mg Albuterol Sulfate (Ventolin 0.083% Nebulizer Soln -) 1 amp NEB Q4H PRN PRN Reason: SHORT OF BREATH/WHEEZING Last Admin: 02/06/17 06:53 Dose: 1 amp Apixaban (Eliquis -) 2.5 mg PO BID [facility] Last Admin: 02/05/17 22:54 Dose: 2.5 mg Atorvastatin Calcium (Lipitor -) 80 mg PO HS [facility] Last Admin: 02/05/17 22:54 Dose: 80 mg Carvedilol (Coreg -) 6.25 mg PO DAILY [facility] Last Admin: 02/05/17 09:13 Dose: Not Given Docusate Sodium (Colace -) 100 mg PO BID [facility] Last Admin: 02/05/17 22:54 Dose: 100 mg Ondansetron HCl (Zofran Injection) 4 mg IVPB Q6H PRN PRN Reason: NAUSEA Polyethylene Glycol (Miralax (For Daily Use) -) 17 gm PO BID [facility] Last Admin: 02/05/17 22:54 Dose: 17 grams Tamsulosin HCl (Flomax -) 0.4 mg PO AM [facility] Last Admin: 02/06/17 06:07 Dose: 0.4 mg - Objective Vital Signs: Vital Signs Temperature 97.8 F 02/06/17 06:00 Pulse Rate 83 02/06/17 06:00 Respiratory Rate 20 02/06/17 06:00 Blood Pressure 98/68 02/06/17 06:00 O2 Sat by Pulse Oximetry (%) 98 02/05/17 21:00 Constitutional: Yes: No Distress, Calm Neck: Yes: Supple Cardiovascular: Yes: Regular Rate and Rhythm Respiratory: Yes: Regular, Diminished Gastrointestinal: Yes: Normal Bowel Sounds, Soft Extremities: Yes: Amputation (right BKA) Edema: No Labs: CBC, BMP 02/06/17 06:00 02/06/17 06:00 Problem List - Problems (1) Elevated troponin Code(s): R79.89 - OTHER SPECIFIED ABNORMAL FINDINGS OF BLOOD CHEMISTRY (2) Acute metabolic encephalopathy Code(s): G93.41 - METABOLIC ENCEPHALOPATHY (3) Sycqu-fn-evpwliu kidney injury Code(s): N17.9 - ACUTE KIDNEY FAILURE, UNSPECIFIED N18.9 - CHRONIC KIDNEY DISEASE, UNSPECIFIED (4) Atrial fibrillation Code(s): I48.91 - UNSPECIFIED ATRIAL FIBRILLATION Qualifiers: Atrial fibrillation type: chronic Qualified Code(s): I48.2 - Chronic atrial fibrillation (5) CKD (chronic kidney disease) Code(s): N18.9 - CHRONIC KIDNEY DISEASE, UNSPECIFIED Qualifiers: Chronic kidney disease stage: stage 2 (mild) Qualified Code(s): N18.2 - Chronic kidney disease, stage 2 (mild) (6) Coronary artery disease Code(s): I25.10 - ATHSCL HEART DISEASE OF [place] CORONARY ARTERY W/O ANG PCTRS Qualifiers: Coronary Disease-Associated Artery/Lesion type: [place] artery [place] vs. transplanted heart: [place] heart Associated angina: without angina Qualified Code(s): I25.10 - Atherosclerotic heart disease of [place] coronary artery without angina pectoris (7) Diastolic CHF Code(s): I50.30 - UNSPECIFIED DIASTOLIC (CONGESTIVE) HEART FAILURE Qualifiers : Congestive heart failure chronicity: chronic Qualified Code(s): I50.32 - Chronic diastolic (congestive) heart failure (8) HLD (hyperlipidemia) Code(s): E78.5 - HYPERLIPIDEMIA, UNSPECIFIED Qualifiers: Hyperlipidemia type: pure hypercholesterolemia Qualified Code(s): E78.00 - Pure hypercholesterolemia, unspecified; E78.0 - Pure hypercholesterolemia (9) HTN (hypertension) Code(s): I10 - ESSENTIAL (PRIMARY) HYPERTENSION Qualifiers: Hypertension type: essential hypertension Qualified Code(s): I10 - Essential (primary) hypertension (10) Pleural effusion Code(s): J90 - PLEURAL EFFUSION, NOT ELSEWHERE CLASSIFIED (11) Pulmonary mass Code(s): R91.8 - OTHER NONSPECIFIC ABNORMAL FINDING OF LUNG FIELD (12) Status post coronary artery stent placement Code(s): Z95.5 - PRESENCE OF CORONARY ANGIOPLASTY IMPLANT AND GRAFT (13) Subendocardial ischemia Code(s): I24.8 - OTHER FORMS OF ACUTE ISCHEMIC HEART DISEASE Assessment/Plan 02/09/2016 Echo: Severe cLVH, mild-mod LV systolic dysfunction, mod AR, MR, mild BURT 1.7 cm^2, RVSP 38 mmHg 1. Altered mental status improved 2. Acute on chronic kidney injury 3. Acute on chronic diastolic CHF, infiltrative cardiomyopathy cannot be excluded 4. CAD post PCI/stent, subendocardial ischemia with trops plateaued 5. HTN 6. Hypercholesterolemia 7. Questionable PAF although no clear documentation 8. Anemia 9. Pulmonary masses with R>L pleural effusion, r/o malignancy PLAN: 1. Continue Carvedilol 6.25 qd as hemodynamics tolerate 2. Diuretics held with monitor renal fxn and electrolytes, resume Losartan once renal function stabilizes 3. Continue Eliquis 2.5 bid and Lipitor 80 qd, Zetia was d/cande in office 4. Patient and healthcare proxy previously deferred further workup of pulm masses 5. PT->SNF, dysphagia diet
--- NOTE | 2017-02-06 10:26 | PN ---
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 Consider continued swallowing f/u at [facility], for swallowing rehab with goal to upgrade as swallowing function improves. Consider repeat MBS as opd, when indicated. Reviewed with staff.
[2017-02-06] MEDS: APIXABAN 2.5 MG TABLET PO SCH ×2 (10:40→21:40)
[2017-02-06] MEDS: CARVEDILOL 6.25 MG TABLET (FP) PO SCH (10:50)
[2017-02-06] MEDS: DOCUSATE SODIUM 100 MG CAPSULE (FP) PO SCH ×2 (10:55→21:40)
[2017-02-06] MEDS ORDERED: PT OWN MED DRAWER 7, Y5N ONE ×2 (11:08→21:37)
[2017-02-06] MEDS: POLYETHYLENE GLYCOL 3350 119 GM BTL PO SCH ×2 (12:05→21:40)
--- NOTE | 2017-02-06 13:28 | PN ---
Progress Note, Physician Chief Complaint: Mr Wisdom mental status at baseline. Says he is feeling well and denies cp, sob , n/v. - Current Medication List Current Medications: Active Medications Acetaminophen (Tylenol -) 650 mg PO Q4H PRN PRN Reason: FEVER OR PAIN Last Admin: 01/31/17 21:20 Dose: 650 mg Albuterol Sulfate (Ventolin 0.083% Nebulizer Soln -) 1 amp NEB Q4H PRN PRN Reason: SHORT OF BREATH/WHEEZING Last Admin: 02/06/17 06:53 Dose: 1 amp Apixaban (Eliquis -) 2.5 mg PO BID [facility] Last Admin: 02/06/17 10:40 Dose: 2.5 mg Atorvastatin Calcium (Lipitor -) 80 mg PO HS [facility] Last Admin: 02/05/17 22:54 Dose: 80 mg Carvedilol (Coreg -) 6.25 mg PO DAILY [facility] Last Admin: 02/06/17 10:50 Dose: 6.25 mg Docusate Sodium (Colace -) 100 mg PO BID [facility] Last Admin: 02/06/17 10:55 Dose: 100 mg Ondansetron HCl (Zofran Injection) 4 mg IVPB Q6H PRN PRN Reason: NAUSEA Polyethylene Glycol (Miralax (For Daily Use) -) 17 gm PO BID [facility] Last Admin: 02/06/17 12:05 Dose: Not Given Tamsulosin HCl (Flomax -) 0.4 mg PO AM [facility] Last Admin: 02/06/17 06:07 Dose: 0.4 mg - Objective Vital Signs: Vital Signs Temperature 97.4 F L 02/06/17 09:00 Pulse Rate 69 02/06/17 09:00 Respiratory Rate 20 02/06/17 09:00 Blood Pressure 91/50 02/06/17 09:00 O2 Sat by Pulse Oximetry (%) 100 02/06/17 09:00 Constitutional: Yes: Well Nourished, No Distress, Calm Cardiovascular: Yes: Regular Rate and Rhythm. No: Gallop, Murmur, Rub Respiratory: Yes: Regular, CTA Bilaterally. No: Rales, Rhonchi, Wheezes Gastrointestinal: Yes: Normal Bowel Sounds, Soft, Distention. No: Tenderness Extremities: Yes: WNL Edema: No Labs: CBC, BMP 02/06/17 06:00 02/06/17 06:00 Problem List - Problems (1) Acute metabolic encephalopathy Code(s): G93.41 - METABOLIC ENCEPHALOPATHY (2) Ziymh-uv-adlrngp kidney injury Code(s): N17.9 - ACUTE KIDNEY FAILURE, UNSPECIFIED N18.9 - CHRONIC KIDNEY DISEASE, UNSPECIFIED (3) Elevated troponin Code(s): R79.89 - OTHER SPECIFIED ABNORMAL FINDINGS OF BLOOD CHEMISTRY (4) Atrial fibrillation Code(s): I48.91 - UNSPECIFIED ATRIAL FIBRILLATION Qualifiers: Atrial fibrillation type: chronic Qualified Code(s): I48.2 - Chronic atrial fibrillation (5) BPH (benign prostatic hyperplasia) Code(s): N40.0 - BENIGN PROSTATIC HYPERPLASIA WITHOUT LOWER URINRY TRACT SYMP (6) CHF (congestive heart failure) Code(s): I50.9 - HEART FAILURE, UNSPECIFIED Qualifiers: Congestive heart failure type: diastolic Congestive heart failure chronicity: chronic Qualified Code(s): I50.32 - Chronic diastolic ( congestive) heart failure (7) Coronary artery disease Code(s): I25.10 - ATHSCL HEART DISEASE OF [place] CORONARY ARTERY W/O ANG PCTRS Qualifiers: Coronary Disease-Associated Artery/Lesion type: [place] artery [place] vs. transplanted heart: [place] heart Associated angina: without angina Qualified Code(s): I25.10 - Atherosclerotic heart disease of [place] coronary artery without angina pectoris (8) HLD (hyperlipidemia) Code(s): E78.5 - HYPERLIPIDEMIA, UNSPECIFIED Qualifiers: Hyperlipidemia type: pure hypercholesterolemia Qualified Code(s): E78.00 - Pure hypercholesterolemia, unspecified; E78.0 - Pure hypercholesterolemia (9) HTN (hypertension) Code(s): I10 - ESSENTIAL (PRIMARY) HYPERTENSION Qualifiers: Hypertension type: essential hypertension Qualified Code(s): I10 - Essential (primary) hypertension (10) Abdominal distension Code(s): R14.0 - ABDOMINAL DISTENSION (GASEOUS) Assessment/Plan (1) Acute metabolic encephalopathy Assessment/Plan: -at baseline Code(s): G93.41 - METABOLIC ENCEPHALOPATHY (2) Wdrkv-bu-mewebhy kidney injury Assessment/Plan: -BUN/Cr remains elevated -lasix stopped -holding losartan until renal function improves Code(s): N17.9 - ACUTE KIDNEY FAILURE, UNSPECIFIED N18.9 - CHRONIC KIDNEY DISEASE, UNSPECIFIED (3) Elevated troponin Assessment/Plan: -appreciate cardiology assistance -no further work up needed Code(s): R79.89 - OTHER SPECIFIED ABNORMAL FINDINGS OF BLOOD CHEMISTRY (4) Atrial fibrillation Assessment/Plan: -continue eliquis and coreg Code(s): I48.91 - UNSPECIFIED ATRIAL FIBRILLATION Qualifiers: Atrial fibrillation type: chronic Qualified Code(s): I48.2 - Chronic atrial fibrillation (5) BPH (benign prostatic hyperplasia) Assessment/Plan: -continue flomax Code(s): N40.0 - BENIGN PROSTATIC HYPERPLASIA WITHOUT LOWER URINRY TRACT SYMP (6) CHF (congestive heart failure) Assessment/Plan: -appreciate cardiology assistance -currently dry -holding losartan secondary to renal function Code(s): I50.9 - HEART FAILURE, UNSPECIFIED Qualifiers: Congestive heart failure type: diastolic Congestive heart failure chronicity: chronic Qualified Code(s): I50.32 - Chronic diastolic ( congestive) heart failure (7) Coronary artery disease Assessment/Plan: -cardiology following -appreciate assistance Code(s): I25.10 - ATHSCL HEART DISEASE OF [place] CORONARY ARTERY W/O ANG PCTRS Qualifiers: Coronary Disease-Associated Artery/Lesion type: [place] artery [place] vs. transplanted heart: [place] heart Associated angina: without angina Qualified Code(s): I25.10 - Atherosclerotic heart disease of [place] coronary artery without angina pectoris (8) HLD (hyperlipidemia) Assessment/Plan: -continue statin Code(s): E78.5 - HYPERLIPIDEMIA, UNSPECIFIED Qualifiers: Hyperlipidemia type: pure hypercholesterolemia (9) HTN (hypertension) Assessment/Plan: -controlled Code(s): I10 - ESSENTIAL (PRIMARY) HYPERTENSION Qualifiers: Hypertension type: essential hypertension Qualified Code(s): I10 - Essential (primary) hypertension (10) Abdominal distension Assessment/Plan: -+bm -continue stool softeners Code(s): R14.0 - ABDOMINAL DISTENSION (GASEOUS)
--- NOTE | 2017-02-06 15:08 | PN ---
Progress Note (short form) - Note Progress Note: Renal follow up for DARNELL on CKD Pt seen and examined at the bedside awake and alert wants to go home no sob or chest pain was able to eat breakfast Vital Signs Temperature 97.4 F L 02/06/17 09:00 Pulse Rate 69 02/06/17 09:00 Respiratory Rate 20 02/06/17 09:00 Blood Pressure 91/50 02/06/17 09:00 O2 Sat by Pulse Oximetry (%) 100 02/06/17 09:00 Intake & Output 02/03/17 02/04/17 02/05/17 02/06/17 23:59 23:59 23:59 23:59 Intake Total 150 400 0 0 Output Total 1200 450 200 300 Balance -1050 -50 -200 -300 Weight 146 lb 1.6 oz 151 lb Gen: NAD, awake and alert CVS: RRR, No M/R Lungs: + rales at lung bases Abd: soft NT/ND Ext: 1+ edema in LE B/L Neuro: AAOX3, slow, confused CBC, BMP 02/06/17 06:00 02/06/17 06:00 Laboratory Tests 02/06/17 06:00 Calcium 8.1 L Phosphorus 4.7 Magnesium 3.1 H Current Medications Acetaminophen (Tylenol -) 650 mg PO Q4H PRN PRN Reason: FEVER OR PAIN Last Admin: 01/31/17 21:20 Dose: 650 mg Albuterol Sulfate (Ventolin 0.083% Nebulizer Soln -) 1 amp NEB Q4H PRN PRN Reason: SHORT OF BREATH/WHEEZING Last Admin: 02/06/17 06:53 Dose: 1 amp Apixaban (Eliquis -) 2.5 mg PO BID [facility] Last Admin: 02/06/17 10:40 Dose: 2.5 mg Atorvastatin Calcium (Lipitor -) 80 mg PO HS [facility] Last Admin: 02/05/17 22:54 Dose: 80 mg Carvedilol (Coreg -) 6.25 mg PO DAILY [facility] Last Admin: 02/06/17 10:50 Dose: 6.25 mg Docusate Sodium (Colace -) 100 mg PO BID [facility] Last Admin: 02/06/17 10:55 Dose: 100 mg Ondansetron HCl (Zofran Injection) 4 mg IVPB Q6H PRN PRN Reason: NAUSEA Polyethylene Glycol (Miralax (For Daily Use) -) 17 gm PO BID [facility] Last Admin: 02/06/17 12:05 Dose: Not Given Tamsulosin HCl (Flomax -) 0.4 mg PO AM [facility] Last Admin: 02/06/17 06:07 Dose: 0.4 mg A/p #DARNELL on CKD Renal function stable in the last 24 hours (last dose of laisx was yesterday morning) respiratory status appears stable, holding Lasix for now continue to tend BUN/Cr for now Hold ARB until Cr returns to baseline no indication for [employer]BE [employer] Thank you Devin Edmondson DO
[2017-02-06] MEDS: ATORVASTATIN CA 80 MG TABLET (FP) PO SCH (21:40)
[2017-02-07] MEDS: TAMSULOSIN HCL 0.4 MG CAP.ER.24H (FP) PO SCH (06:21)
[2017-02-07 07:19] LABS: BASOPHIL 0.7 % (0-2.0); EOSINOPHIL 3.2 % (0-4.5); MCH 29.1 pg (25.7-33.7); MCHC 31.9 g/dl (32.0-35.9); MEAN CELL VOLUME 91.3 fl (80-96); NEUTROPHILS 83.3 % (42.8-82.8); PLATELET COUNT 140 K/MM3 (134-434); RDW 19.1 % (11.9-15.9); WHITE BLOOD COUNT 8.8 K/mm3 (4.0-10.0)
[2017-02-07 07:41] LABS: CALCIUM 7.9 mg/dL (8.5-10.1); CREATININE 2.4 mg/dL (0.7-1.3); MAGNESIUM 3.3 mg/dL (1.8-2.4); PHOSPHOROUS 4.3 mg/dL (2.5-4.9)
[2017-02-07] MEDS ORDERED: PT OWN MED DRAWER 7, Y5N ONE ×2 (09:13→20:42)
[2017-02-07] MEDS: DOCUSATE SODIUM 100 MG CAPSULE (FP) PO SCH ×2 (09:40→21:22)
[2017-02-07] MEDS: APIXABAN 2.5 MG TABLET PO SCH ×2 (09:40→22:17)
[2017-02-07] MEDS: POLYETHYLENE GLYCOL 3350 119 GM BTL PO SCH ×2 (09:40→21:22)
[2017-02-07] MEDS: CARVEDILOL 6.25 MG TABLET (FP) PO SCH (09:40)
--- NOTE | 2017-02-07 11:54 | PN ---
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 Consider supplements b/n meals. Consider repeat MBS as opd, when indicated. Reviewed with staff.
--- NOTE | 2017-02-07 11:55 | PN ---
Progress Note (short form) - Note Progress Note: Renal follow up for DARNELL on CKD Pt seen and examined at the bedside awake and alert, requesting to be discharged denies any sob, chest pain, abd pain, N/V/D as per nurse pt is eating and drinking well meyer in place Vital Signs Temperature 97.5 F L 02/07/17 05:34 Pulse Rate 85 02/07/17 05:34 Respiratory Rate 20 02/07/17 05:34 Blood Pressure 105/60 02/07/17 05:34 O2 Sat by Pulse Oximetry (%) 97 02/06/17 21:00 Intake & Output 02/04/17 02/05/17 02/06/17 02/07/17 23:59 23:59 23:59 23:59 Intake Total 400 0 200 350 Output Total 450 200 700 300 Balance -50 -200 -500 50 Weight 151 lb Gen: NAD, awake and alert CVS: RRR, No M/R Lungs: + rales at lung bases Abd: soft NT/ND Ext: 1+ edema in LE B/L Neuro: AAOX3, slow, confused : Meyer in place CBC, BMP 02/07/17 06:00 02/07/17 06:00 Current Medications Acetaminophen (Tylenol -) 650 mg PO Q4H PRN PRN Reason: FEVER OR PAIN Last Admin: 01/31/17 21:20 Dose: 650 mg Albuterol Sulfate (Ventolin 0.083% Nebulizer Soln -) 1 amp NEB Q4H PRN PRN Reason: SHORT OF BREATH/WHEEZING Last Admin: 02/06/17 06:53 Dose: 1 amp Apixaban (Eliquis -) 2.5 mg PO BID [facility] Last Admin: 02/07/17 09:40 Dose: 2.5 mg Atorvastatin Calcium (Lipitor -) 80 mg PO HS [facility] Last Admin: 02/06/17 21:40 Dose: 80 mg Carvedilol (Coreg -) 6.25 mg PO DAILY [facility] Last Admin: 02/07/17 09:40 Dose: 6.25 mg Docusate Sodium (Colace -) 100 mg PO BID [facility] Last Admin: 02/07/17 09:40 Dose: 100 mg Ondansetron HCl (Zofran Injection) 4 mg IVPB Q6H PRN PRN Reason: NAUSEA Polyethylene Glycol (Miralax (For Daily Use) -) 17 gm PO BID [facility] Last Admin: 02/07/17 09:40 Dose: 17 grams Tamsulosin HCl (Flomax -) 0.4 mg PO AM [facility] Last Admin: 02/07/17 06:21 Dose: 0.4 mg A/p #DARNELL on CKD Renal function stable, slight improvement off diuretics good urine output via Meyer no signs of uremia, no indication for 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
--- NOTE | 2017-02-07 12:22 | PN ---
Progress Note, Physician History of Present Illness: Sensorium back to baseline. - Current Medication List Current Medications: Active Medications Acetaminophen (Tylenol -) 650 mg PO Q4H PRN PRN Reason: FEVER OR PAIN Last Admin: 01/31/17 21:20 Dose: 650 mg Albuterol Sulfate (Ventolin 0.083% Nebulizer Soln -) 1 amp NEB Q4H PRN PRN Reason: SHORT OF BREATH/WHEEZING Last Admin: 02/06/17 06:53 Dose: 1 amp Apixaban (Eliquis -) 2.5 mg PO BID [facility] Last Admin: 02/07/17 09:40 Dose: 2.5 mg Atorvastatin Calcium (Lipitor -) 80 mg PO HS [facility] Last Admin: 02/06/17 21:40 Dose: 80 mg Carvedilol (Coreg -) 6.25 mg PO DAILY [facility] Last Admin: 02/07/17 09:40 Dose: 6.25 mg Docusate Sodium (Colace -) 100 mg PO BID [facility] Last Admin: 02/07/17 09:40 Dose: 100 mg Ondansetron HCl (Zofran Injection) 4 mg IVPB Q6H PRN PRN Reason: NAUSEA Polyethylene Glycol (Miralax (For Daily Use) -) 17 gm PO BID [facility] Last Admin: 02/07/17 09:40 Dose: 17 grams Tamsulosin HCl (Flomax -) 0.4 mg PO AM [facility] Last Admin: 02/07/17 06:21 Dose: 0.4 mg - Objective Vital Signs: Vital Signs Temperature 97.6 F 02/07/17 12:18 Pulse Rate 86 02/07/17 12:18 Respiratory Rate 20 02/07/17 12:18 Blood Pressure 112/58 02/07/17 12:18 O2 Sat by Pulse Oximetry (%) 97 02/06/17 21:00 Constitutional: Yes: No Distress, Calm Neck: Yes: Supple Cardiovascular: Yes: Regular Rate and Rhythm Respiratory: Yes: Regular, Diminished Gastrointestinal: Yes: Normal Bowel Sounds, Soft Edema: No Labs: CBC, BMP 02/07/17 06:00 02/07/17 06:00 Problem List - Problems (1) Elevated troponin Code(s): R79.89 - OTHER SPECIFIED ABNORMAL FINDINGS OF BLOOD CHEMISTRY (2) Acute metabolic encephalopathy Code(s): G93.41 - METABOLIC ENCEPHALOPATHY (3) Kofub-qa-paxulsr kidney injury Code(s): N17.9 - ACUTE KIDNEY FAILURE, UNSPECIFIED N18.9 - CHRONIC KIDNEY DISEASE, UNSPECIFIED (4) Atrial fibrillation Code(s): I48.91 - UNSPECIFIED ATRIAL FIBRILLATION Qualifiers: Atrial fibrillation type: chronic Qualified Code(s): I48.2 - Chronic atrial fibrillation (5) CKD (chronic kidney disease) Code(s): N18.9 - CHRONIC KIDNEY DISEASE, UNSPECIFIED Qualifiers: Chronic kidney disease stage: stage 2 (mild) Qualified Code(s): N18.2 - Chronic kidney disease, stage 2 (mild) (6) Coronary artery disease Code(s): I25.10 - ATHSCL HEART DISEASE OF [place] CORONARY ARTERY W/O ANG PCTRS Qualifiers: Coronary Disease-Associated Artery/Lesion type: [place] artery [place] vs. transplanted heart: [place] heart Associated angina: without angina Qualified Code(s): I25.10 - Atherosclerotic heart disease of [place] coronary artery without angina pectoris (7) Diastolic CHF Code(s): I50.30 - UNSPECIFIED DIASTOLIC (CONGESTIVE) HEART FAILURE Qualifiers : Congestive heart failure chronicity: chronic Qualified Code(s): I50.32 - Chronic diastolic (congestive) heart failure (8) HLD (hyperlipidemia) Code(s): E78.5 - HYPERLIPIDEMIA, UNSPECIFIED Qualifiers: Hyperlipidemia type: pure hypercholesterolemia Qualified Code(s): E78.00 - Pure hypercholesterolemia, unspecified; E78.0 - Pure hypercholesterolemia (9) HTN (hypertension) Code(s): I10 - ESSENTIAL (PRIMARY) HYPERTENSION Qualifiers: Hypertension type: essential hypertension Qualified Code(s): I10 - Essential (primary) hypertension (10) Pleural effusion Code(s): J90 - PLEURAL EFFUSION, NOT ELSEWHERE CLASSIFIED (11) Pulmonary mass Code(s): R91.8 - OTHER NONSPECIFIC ABNORMAL FINDING OF LUNG FIELD (12) Status post coronary artery stent placement Code(s): Z95.5 - PRESENCE OF CORONARY ANGIOPLASTY IMPLANT AND GRAFT (13) Subendocardial ischemia Code(s): I24.8 - OTHER FORMS OF ACUTE ISCHEMIC HEART DISEASE Assessment/Plan 02/09/2016 Echo: Severe cLVH, mild-mod LV systolic dysfunction, mod AR, MR, mild BURT 1.7 cm^2, RVSP 38 mmHg 1. Altered mental status resolved 2. Acute on chronic kidney injury improving 3. Acute on chronic diastolic CHF, infiltrative cardiomyopathy cannot be excluded 4. CAD post PCI/stent, subendocardial ischemia with trops plateaued 5. HTN 6. Hypercholesterolemia 7. Questionable PAF although no clear documentation 8. Anemia 9. Pulmonary masses with R>L pleural effusion, r/o malignancy PLAN: 1. Continue Carvedilol 6.25 qd as hemodynamics tolerate 2. Diuretics held with monitor renal fxn and electrolytes, resume Losartan once renal function stabilizes 3. Continue Eliquis 2.5 bid and Lipitor 80 qd, Zetia was d/cande in office 4. Patient and healthcare proxy previously deferred further workup of pulm masses 5. PT->SNF, dysphagia diet, d/c meyer with voiding trial
--- NOTE | 2017-02-07 12:54 | PN ---
Physical Exam: SUBJECTIVE: Patient seen and examined at bed, requesting to be discharged, denies any complain,intermittent confusion. OBJECTIVE: Vital Signs Period Temp Pulse Resp BP Sys/Semaan Pulse Ox Last 24 Hr 96.8 F-97.6 F 78-93 20-20 103-116/52-60 97 GENERAL: The patient is awake, alert, and fully oriented, in no acute distress. HEAD: Normal with no signs of trauma. EYES: PERRL, extraocular movements intact, sclera anicteric, conjunctiva clear. No ptosis. ENT: Ears normal, nares patent, oropharynx clear without exudates, moist mucous membranes. NECK: Trachea midline, full range of motion, supple. LUNGS: Breath sounds equal, clear to auscultation bilaterally, no wheezes, no crackles, no accessory muscle use. HEART: Regular rate and rhythm, S1, S2 without murmur, rub or gallop. ABDOMEN: Soft, nontender, nondistended, normoactive bowel sounds, no guarding, no rebound, no hepatosplenomegaly, no masses. EXTREMITIES: 2+ pulses, warm, well-perfused, trace edema NEUROLOGICAL: Cranial nerves II through XII grossly intact. Normal speech, gait not observed. PSYCH: Normal mood, normal affect, intermittent confusion SKIN: Warm, dry, normal turgor, no rashes or lesions noted Laboratory Results - last 24 hr 02/07/17 02/07/17 06:00 06:00 WBC 8.8 RBC 3.89 L Hgb 11.3 L Hct 35.5 MCV 91.3 MCHC 31.9 L RDW 19.1 H Plt Count 140 MPV 9.0 Neutrophils % 83.3 H Lymphocytes % 5.9 L Monocytes % 6.9 Eosinophils % 3.2 Basophils % 0.7 Sodium 146 H Potassium 4.9 Chloride 109 H Carbon Dioxide 29 D Anion Gap 8 BUN 95 H Creatinine 2.4 H Random Glucose 113 H Calcium 7.9 L Phosphorus 4.3 Magnesium 3.3 H Active Medications Generic Name Dose Route Start Last Admin Trade Name Freq PRN Reason Stop Dose Admin Acetaminophen 650 mg 01/28/17 16:05 01/31/17 21:20 Tylenol - PO 650 mg Q4H PRN Administration FEVER OR PAIN Albuterol Sulfate 1 amp 02/03/17 10:18 02/06/17 06:53 Ventolin 0.083% Nebulizer Soln - NEB 1 amp Q4H PRN Administration SHORT OF BREATH/WHEEZING Apixaban 2.5 mg 01/28/17 22:00 02/07/17 09:40 Eliquis - PO 2.5 mg BID CLEMENTE Administration Atorvastatin Calcium 80 mg 01/28/17 22:00 02/06/17 21:40 Lipitor - PO 80 mg HS CLEMENTE Administration Carvedilol 6.25 mg 01/29/17 10:00 02/07/17 09:40 Coreg - PO 6.25 mg DAILY CLEMENTE Administration Docusate Sodium 100 mg 01/28/17 22:00 02/07/17 09:40 Colace - PO 100 mg BID CLEMENTE Administration Ondansetron HCl 4 mg 01/28/17 16:05 Zofran Injection IVPB Q6H PRN NAUSEA Polyethylene Glycol 17 gm 02/05/17 22:00 02/07/17 09:40 Miralax (For Daily Use) - PO 17 grams BID CLEMENTE Administration Tamsulosin HCl 0.4 mg 01/29/17 07:00 02/07/17 06:21 Flomax - PO 0.4 mg AM CLEMENTE Administration Imaging - Reviewed ASSESSMENT/PLAN This is an 86 year old male who was brought in by his daughter with AMS, dehydration, poor appetite and back pain * Acute metabolic encephalopathy- ? 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 *Elevated troponin- asymptomatic - cardiology following * Hx of Atrial fibrillation- HR controlled -continue eliquis and coreg * BPH -continue flomax - will DC Dunn and void trial *CHF - stable -appreciate cardiology assistance - holding off diuretics in view of RI -holding losartan secondary to renal function *Coronary artery disease - will cont on BB, Statin -cardiology following *HLD -continue statin *HTN-BP stable -holding Losartan secondary to renal function - will cont on BB *Abdominal distension- asymptomatic -continue stool softeners * Dysphagia -[employer] PATROLMAN done , rec repeat MBS as opd, when indicated.Dysphagia puree diet with thin liquids - nutritional consult appreciated - rec Dysphagia puree diet with thin liquids as per [employer]; also Na controlled - continue Magic Cup BID (290 kcal/9 gm Prot) and Ensure pudding BID (170 kcal /4 gm Prot) - added MVI Dispo - STR placement pending Visit type - Emergency Visit Emergency Visit: Yes ED Registration Date: 01/28/17 Care time: The patient presented to the Emergency Department on the above date and was hospitalized for further evaluation of their emergent condition. - New Patient This patient is new to me today: Yes Date on this admission: 02/07/17 - Critical Care Critical Care patient: No
[2017-02-07] MEDS: ATORVASTATIN CA 80 MG TABLET (FP) PO SCH (21:22)
[2017-02-08] MEDS: TAMSULOSIN HCL 0.4 MG CAP.ER.24H (FP) PO SCH (06:09)
[2017-02-08 06:58] LABS: CALCIUM 8.2 mg/dL (8.5-10.1); MAGNESIUM 3.3 mg/dL (1.8-2.4)
[2017-02-08 06:59] LABS: CREATININE 2.5 mg/dL (0.7-1.3); PHOSPHOROUS 4.2 mg/dL (2.5-4.9)
[2017-02-08] MEDS: POLYETHYLENE GLYCOL 3350 119 GM BTL PO SCH ×2 (09:30→22:11)
[2017-02-08] MEDS: CARVEDILOL 6.25 MG TABLET (FP) PO SCH (09:30)
[2017-02-08] MEDS: APIXABAN 2.5 MG TABLET PO SCH ×2 (09:30→22:11)
[2017-02-08] MEDS: DOCUSATE SODIUM 100 MG CAPSULE (FP) PO SCH ×2 (09:30→22:11)
--- NOTE | 2017-02-08 12:11 | PN ---
Progress Note, Physician History of Present Illness: Sensorium back to baseline. - Current Medication List Current Medications: Active Medications Acetaminophen (Tylenol -) 650 mg PO Q4H PRN PRN Reason: FEVER OR PAIN Last Admin: 01/31/17 21:20 Dose: 650 mg Apixaban (Eliquis -) 2.5 mg PO BID [facility] Last Admin: 02/08/17 09:30 Dose: 2.5 mg Atorvastatin Calcium (Lipitor -) 80 mg PO HS [facility] Last Admin: 02/07/17 21:22 Dose: 80 mg Carvedilol (Coreg -) 6.25 mg PO DAILY [facility] Last Admin: 02/08/17 09:30 Dose: 6.25 mg Docusate Sodium (Colace -) 100 mg PO BID [facility] Last Admin: 02/08/17 09:30 Dose: 100 mg Ondansetron HCl (Zofran Injection) 4 mg IVPB Q6H PRN PRN Reason: NAUSEA Polyethylene Glycol (Miralax (For Daily Use) -) 17 gm PO BID [facility] Last Admin: 02/08/17 09:30 Dose: 17 grams Tamsulosin HCl (Flomax -) 0.4 mg PO AM [facility] Last Admin: 02/08/17 06:09 Dose: 0.4 mg - Objective Vital Signs: Vital Signs Temperature 98.2 F 02/08/17 09:10 Pulse Rate 96 H 02/08/17 09:10 Respiratory Rate 18 02/08/17 09:10 Blood Pressure 100/55 02/08/17 09:10 O2 Sat by Pulse Oximetry (%) 94 L 02/07/17 21:00 Constitutional: Yes: No Distress, Calm Neck: Yes: Supple Cardiovascular: Yes: Regular Rate and Rhythm Respiratory: Yes: Regular, Diminished, On Nasal O2 Gastrointestinal: Yes: Normal Bowel Sounds, Soft Edema: No Labs: CBC, BMP 02/07/17 06:00 02/08/17 05:00 Problem List - Problems (1) Elevated troponin Code(s): R79.89 - OTHER SPECIFIED ABNORMAL FINDINGS OF BLOOD CHEMISTRY (2) Acute metabolic encephalopathy Code(s): G93.41 - METABOLIC ENCEPHALOPATHY (3) Eksoq-mz-ijpfuzh kidney injury Code(s): N17.9 - ACUTE KIDNEY FAILURE, UNSPECIFIED N18.9 - CHRONIC KIDNEY DISEASE, UNSPECIFIED (4) Atrial fibrillation Code(s): I48.91 - UNSPECIFIED ATRIAL FIBRILLATION Qualifiers: Atrial fibrillation type: chronic Qualified Code(s): I48.2 - Chronic atrial fibrillation (5) CKD (chronic kidney disease) Code(s): N18.9 - CHRONIC KIDNEY DISEASE, UNSPECIFIED Qualifiers: Chronic kidney disease stage: stage 2 (mild) Qualified Code(s): N18.2 - Chronic kidney disease, stage 2 (mild) (6) Coronary artery disease Code(s): I25.10 - ATHSCL HEART DISEASE OF [place] CORONARY ARTERY W/O ANG PCTRS Qualifiers: Coronary Disease-Associated Artery/Lesion type: [place] artery [place] vs. transplanted heart: [place] heart Associated angina: without angina Qualified Code(s): I25.10 - Atherosclerotic heart disease of [place] coronary artery without angina pectoris (7) Diastolic CHF Code(s): I50.30 - UNSPECIFIED DIASTOLIC (CONGESTIVE) HEART FAILURE Qualifiers : Congestive heart failure chronicity: chronic Qualified Code(s): I50.32 - Chronic diastolic (congestive) heart failure (8) HLD (hyperlipidemia) Code(s): E78.5 - HYPERLIPIDEMIA, UNSPECIFIED Qualifiers: Hyperlipidemia type: pure hypercholesterolemia Qualified Code(s): E78.00 - Pure hypercholesterolemia, unspecified; E78.0 - Pure hypercholesterolemia (9) HTN (hypertension) Code(s): I10 - ESSENTIAL (PRIMARY) HYPERTENSION Qualifiers: Hypertension type: essential hypertension Qualified Code(s): I10 - Essential (primary) hypertension (10) Pleural effusion Code(s): J90 - PLEURAL EFFUSION, NOT ELSEWHERE CLASSIFIED (11) Pulmonary mass Code(s): R91.8 - OTHER NONSPECIFIC ABNORMAL FINDING OF LUNG FIELD (12) Status post coronary artery stent placement Code(s): Z95.5 - PRESENCE OF CORONARY ANGIOPLASTY IMPLANT AND GRAFT (13) Subendocardial ischemia Code(s): I24.8 - OTHER FORMS OF ACUTE ISCHEMIC HEART DISEASE Assessment/Plan 02/09/2016 Echo: Severe cLVH, mild-mod LV systolic dysfunction, mod AR, MR, mild BURT 1.7 cm^2, RVSP 38 mmHg 1. Altered mental status resolved 2. Acute on chronic kidney injury with hyperkalemia 3. Acute on chronic diastolic CHF, infiltrative cardiomyopathy cannot be excluded 4. CAD post PCI/stent, subendocardial ischemia with trops plateaued 5. HTN 6. Hypercholesterolemia 7. Questionable PAF although no clear documentation 8. Anemia 9. Pulmonary masses with R>L pleural effusion, r/o malignancy PLAN: 1. Continue Carvedilol 6.25 qd as hemodynamics tolerate 2. Diuretics held with monitor renal fxn and electrolytes, resume Losartan once renal function stabilizes and hyperkalemia resolves 3. Continue Eliquis 2.5 bid and Lipitor 80 qd, Zetia was d/cande in office 4. Patient and healthcare proxy previously deferred further workup of pulm masses 5. PT->SNF, dysphagia diet, d/c meyer with voiding trial
--- NOTE | 2017-02-08 13:10 | PN ---
[id number] myself." Noted by nursing staff to appear more dyspneic today, but denies shortness of breath. OBJECTIVE: Hospital day #11 for this 86 year old male with a history of HTN, CAD , CHF, AFIB on Eliquis, and BPH admitted 01/28 with altered mental status and DARNELL -on CKD. BUN/Cr today is rising slightly: 99/2.5 Vital Signs Period Temp Pulse Resp BP Sys/Seaman Pulse Ox Last 24 Hr 97 F-98.2 F 81-96 18-20 100-116/55-70 94 GENERAL: Sleeping but arousable. HEAD: Normal with no signs of trauma. EYES: PERRL, extraocular movements intact, sclera anicteric, conjunctiva clear. No ptosis. ENT: Ears normal, nares patent, oropharynx clear without exudates, mucous membranes dry. NECK: Trachea midline, full range of motion, supple. LUNGS: Breath sounds equal, clear to auscultation bilaterally, no wheezes, no crackles, no accessory muscle use. HEART: Regular rate and rhythm, S1, S2 without murmur, rub or gallop. +JVD. ABDOMEN: Soft, nontender, nondistended, normoactive bowel sounds, no guarding, no rebound, no hepatosplenomegaly, no masses. EXTREMITIES: 2+ pulses, warm, well-perfused, no edema. NEUROLOGICAL: E 4 V 4 M 6 = 14. Follows simple commands. Unable to cooperate with MMSE. PSYCH: Normal mood, normal affect. SKIN: Warm, dry, normal turgor, no rashes or lesions noted Laboratory Results - last 24 hr 02/08/17 05:00 Sodium 145 Potassium 5.2 H Chloride 107 Carbon Dioxide 27 Anion Gap 11 BUN 99 H Creatinine 2.5 H Random Glucose 121 H Calcium 8.2 L Phosphorus 4.2 Magnesium 3.3 H Active Medications Generic Name Dose Route Start Last Admin Trade Name Freq PRN Reason Stop Dose Admin Acetaminophen 650 mg 01/28/17 16:05 01/31/17 21:20 Tylenol - PO 650 mg Q4H PRN Administration FEVER OR PAIN Apixaban 2.5 mg 01/28/17 22:00 02/08/17 09:30 Eliquis - PO 2.5 mg BID CLEMENTE Administration Atorvastatin Calcium 80 mg 01/28/17 22:00 02/07/17 21:22 Lipitor - PO 80 mg HS CLEMENTE Administration Carvedilol 6.25 mg 01/29/17 10:00 02/08/17 09:30 Coreg - PO 6.25 mg DAILY CLEMENTE Administration Docusate Sodium 100 mg 01/28/17 22:00 02/08/17 09:30 Colace - PO 100 mg BID CLEMENTE Administration Ondansetron HCl 4 mg 01/28/17 16:05 Zofran Injection IVPB Q6H PRN NAUSEA Polyethylene Glycol 17 gm 02/05/17 22:00 02/08/17 09:30 Miralax (For Daily Use) - PO 17 grams BID CLEMENTE Administration Tamsulosin HCl 0.4 mg 01/29/17 07:00 02/08/17 06:09 Flomax - PO 0.4 mg AM CLEMENTE Administration ASSESSMENT/PLAN: 86 year old male admitted with AMS and failure to thrive. 1. AMS -Acute with some chronic component- daughter noted on admission that mental status seems to be waxing and waning for several months -Mental status has improved and is near baseline -Able to follow simple commands -Head CT 01/28: No acute intracranial process -No evidence of infection -Will send TSH, NH4 as part of metabolic encephalopathy workup -Awaiting SAMIR placement 2. DARNELL-on-CKD (baseline ~1.7) -Initially given IVF with no improvement, then diuresed also without improvement -Renal u/s 01/31: no obstruction or hydronephrosis -Holding Lasix and Losartan pending improvement in renal function 3. Elevated troponin -Flat; negligible change in value x 4 -Cardiology following 4. Atrial fibrillation -Rate-controlled -Continue Eliquis, Coreg 5. BPH -Continue Flomax -Voiding well s/p Dunn dc 6. CHF -Holding diuretics/ARB as above -Repeat CXR today as JVD noted and dyspnea reported; may need to resume diuresis 7. CAD -No active issues -Continue Atorvastatin 8. Dysphagia -MBS reviewed; dysphagia puree diet with thin liquids as per [employer] 9. F/E/N -Continue Magic Cup BID (290 kcal/9 gm Prot) and Ensure pudding BID (170 kcal/4 gm Prot) -Continue MVI -Monitor electrolytes and replete as necessary Dispo - Pending SAMIR placement Visit type - Emergency Visit Emergency Visit: Yes ED Registration Date: 01/28/17 Care time: The patient presented to the Emergency Department on the above date and was hospitalized for further evaluation of their emergent condition. - New Patient This patient is new to me today: Yes Date on this admission: 02/17/17 - Critical Care Critical Care patient: No
--- NOTE | 2017-02-08 13:23 | PN ---
Progress Note (short form) - Note Progress Note: Renal follow up for DARNELL on CKD Pt seen and examined at the bedside appears more dyspnic today denies sob reports eating his breakfast no chest pain cough Vital Signs Temperature 98.2 F 02/08/17 09:10 Pulse Rate 96 H 02/08/17 09:10 Respiratory Rate 18 02/08/17 09:10 Blood Pressure 100/55 02/08/17 09:10 O2 Sat by Pulse Oximetry (%) 94 L 02/07/17 21:00 Intake & Output 02/05/17 02/06/17 02/07/17 02/08/17 23:59 23:59 23:59 23:59 Intake Total 0 200 1230 400 Output Total 200 700 600 Balance -200 -500 630 400 Weight 151 lb Gen: NAD, awake and alert CVS: RRR, No M/R Lungs: + rales at lung bases Abd: soft NT/ND Ext: 1+ edema in LE B/L Neuro: AAOX3, slow, confused : Meyer in place CBC, BMP 02/07/17 06:00 02/08/17 05:00 Current Medications Acetaminophen (Tylenol -) 650 mg PO Q4H PRN PRN Reason: FEVER OR PAIN Last Admin: 01/31/17 21:20 Dose: 650 mg Apixaban (Eliquis -) 2.5 mg PO BID [facility] Last Admin: 02/08/17 09:30 Dose: 2.5 mg Atorvastatin Calcium (Lipitor -) 80 mg PO HS [facility] Last Admin: 02/07/17 21:22 Dose: 80 mg Carvedilol (Coreg -) 6.25 mg PO DAILY [facility] Last Admin: 02/08/17 09:30 Dose: 6.25 mg Docusate Sodium (Colace -) 100 mg PO BID [facility] Last Admin: 02/08/17 09:30 Dose: 100 mg Ondansetron HCl (Zofran Injection) 4 mg IVPB Q6H PRN PRN Reason: NAUSEA Polyethylene Glycol (Miralax (For Daily Use) -) 17 gm PO BID [facility] Last Admin: 02/08/17 09:30 Dose: 17 grams Tamsulosin HCl (Flomax -) 0.4 mg PO AM [facility] Last Admin: 02/08/17 06:09 Dose: 0.4 mg A/p #DARNELL on CKD BUN/Cr relativity stable on over uremia despite high BUN pt clinically has more congestion -> CXR may need some diuresis #Hypernatremia Free water intake as tolerated #BPH continue flomax meyer removed Thank you Devin Edmondson DO
[2017-02-08] MEDS ORDERED: PT OWN MED DRAWER 7, Y5N ONE (22:08)
[2017-02-08] MEDS: ATORVASTATIN CA 80 MG TABLET (FP) PO SCH (22:11)
[2017-02-09] MEDS: TAMSULOSIN HCL 0.4 MG CAP.ER.24H (FP) PO SCH (06:32)
[2017-02-09 07:12] LABS: BASOPHIL 0.5 % (0-2.0); EOSINOPHIL 1.6 % (0-4.5); MCHC 31.8 g/dl (32.0-35.9); MEAN CELL VOLUME 91.2 fl (80-96); MEAN PLT VOLUME 9.2 fl (7.5-11.1); NEUTROPHILS 85.6 % (42.8-82.8); PLATELET COUNT 161 K/MM3 (134-434); RDW 19.6 % (11.9-15.9); WHITE BLOOD COUNT 9.3 K/mm3 (4.0-10.0)
[2017-02-09 07:35] LABS: CALCIUM 8.1 mg/dL (8.5-10.1); CREATININE 2.7 mg/dL (0.7-1.3); MAGNESIUM 3.5 mg/dL (1.8-2.4); PHOSPHOROUS 4.6 mg/dL (2.5-4.9)
[2017-02-09 07:43] LABS: THYROID STIMULATING HORMONE 2.03 uIU/ml (0.358-3.74)
[2017-02-09] MEDS: CARVEDILOL 6.25 MG TABLET (FP) PO SCH (09:55)
[2017-02-09] MEDS ORDERED: PT OWN MED DRAWER 7, Y5N ONE ×2 (09:55→22:39)
[2017-02-09] MEDS: DOCUSATE SODIUM 100 MG CAPSULE (FP) PO SCH ×2 (09:55→22:53)
[2017-02-09] MEDS: APIXABAN 2.5 MG TABLET PO SCH ×2 (09:56→22:53)
[2017-02-09] MEDS: POLYETHYLENE GLYCOL 3350 119 GM BTL PO SCH ×2 (09:58→22:54)
--- NOTE | 2017-02-09 10:51 | PN ---
Progress Note (short form) - Note Progress Note: Patient seen and examined. Chart reviewed at length. Currently sitting up in bed and appears confused and agitated. O2 saturation performed by RN is 98 on 4L/min NC. Labs CXR and physician notes reviewed. Selected Entries 02/08/17 02/09/17 21:00 06:00 Temperature 97.3 F L Pulse Rate 90 Respiratory 18 Rate Blood Pressure 102/69 O2 Sat by Pulse 95 Oximetry (%) Oxygen Delivery Nasal Cannula Method Oxygen Flow 2 Rate Laboratory Tests 02/09/17 02/09/17 02/09/17 06:00 06:00 06:00 WBC 9.3 Hgb 11.8 Hct 37.0 Plt Count 161 Sodium 145 Potassium 5.4 H Chloride 109 H Carbon Dioxide 28 BUN 113 H* Creatinine 2.7 H Random Glucose 107 H Calcium 8.1 L Phosphorus 4.6 Magnesium 3.5 H Ammonia 13.5 TSH 2.03 Chest coarse rales bilaterally 1/[address] No upper airway congestion Cor Irregular No new murmur Marked NVD Abd. Distended, tympanitic, nontender. BS positive No mass Ext No peripheral edema Neuro No new focal deficit but is confused and agitated Assessment and Plan Mental status change Possible toxic/metabolic encephalopathy in setting of underlying dementia which according to the notes had improved, but has now recurred Dementia As above ASHD H/O mildly positive troponins of note H/O known CAD AFib On Eliquis H/O CHF Bilateral pleuraleffusions and engorged neck veins May require cautious dose of diuretic despite renal disease CRI 80/2.1.>79/2.1>>>>113/2.7 Hyperphosphatemia Noted previously c/w ARF/CRI Hypoalbuminemia Chronic Likely related to underlying acute/chronic disease as well as nutritional factors H/O hypertenion with recent hypotension Cardiology assessment HPL Stable Anemia 10.9/33.9>>11.8/37.0 Dehydrated Back pain Currently stable BPH On tamsulosin Abdominal distension Noted this AM Bilateral pleural effusions CXR reviewed Hypermagnesemia Monitor Renal dysfunction noted Continue supportive care Difficult fluid management problem Discuss with cardiology
--- NOTE | 2017-02-09 13:01 | PN ---
Progress Note (short form) - Note Progress Note: Renal follow up for DARNELL on CKD Pt seen and examined at the bedside appears more sob today and more confused mild hypotension this AM Coreg was held Vital Signs Temperature 97.3 F L 02/09/17 06:00 Pulse Rate 96 H 02/09/17 11:48 Respiratory Rate 18 02/09/17 06:00 Blood Pressure 102/69 02/09/17 06:00 O2 Sat by Pulse Oximetry (%) 99 02/09/17 11:48 Intake & Output 02/06/17 02/07/17 02/08/17 02/09/17 23:59 23:59 23:59 23:59 Intake Total 200 1230 400 Output Total 700 600 150 Balance -500 630 400 -150 Weight 151 lb Gen: NAD, awake and alert CVS: RRR, No M/R Lungs: + rales at lung bases Abd: soft NT/ND Ext: 1+ edema in LE B/L Neuro: AAOX3, slow, confused : Dunn in place CBC, BMP 02/07/17 06:00 02/08/17 05:00 Laboratory Tests 02/07/17 02/09/17 02/09/17 06:00 06:00 06:00 Calcium 7.9 L 8.1 L Phosphorus 4.3 4.6 Magnesium 3.3 H 3.5 H Ammonia 13.5 TSH 2.03 Current Medications Acetaminophen (Tylenol -) 650 mg PO Q4H PRN PRN Reason: FEVER OR PAIN Last Admin: 01/31/17 21:20 Dose: 650 mg Apixaban (Eliquis -) 2.5 mg PO BID [facility] Last Admin: 02/08/17 09:30 Dose: 2.5 mg Atorvastatin Calcium (Lipitor -) 80 mg PO HS [facility] Last Admin: 02/07/17 21:22 Dose: 80 mg Carvedilol (Coreg -) 6.25 mg PO DAILY [facility] Last Admin: 02/08/17 09:30 Dose: 6.25 mg Docusate Sodium (Colace -) 100 mg PO BID [facility] Last Admin: 02/08/17 09:30 Dose: 100 mg Ondansetron HCl (Zofran Injection) 4 mg IVPB Q6H PRN PRN Reason: NAUSEA Polyethylene Glycol (Miralax (For Daily Use) -) 17 gm PO BID [facility] Last Admin: 02/08/17 09:30 Dose: 17 grams Tamsulosin HCl (Flomax -) 0.4 mg PO AM [facility] Last Admin: 02/08/17 06:09 Dose: 0.4 mg A/p #DARNELL on CKD BUN uptrending -> related to bladder outlet obstruction vs hypotension Coreg is held will check Bladder scan Pt with signs of resp distress and will likely need IV lasix but want to ensure there is no obstruction first case discussed with daughter who understands that prognosis is not good. No aggressive measures as per family. Will continue current management. Thank you Devin Edmondson DO
--- NOTE | 2017-02-09 14:37 | PN ---
Progress Note, Physician Chief Complaint: Events noted Intermittent dyspnea - currently stable with O2 History of Present Illness: Patient was seen and examined. Awake. Chart was reviewed Denies chest pain or palpitations Discussed with daughter. - Current Medication List Current Medications: Active Medications Acetaminophen (Tylenol -) 650 mg PO Q4H PRN PRN Reason: FEVER OR PAIN Last Admin: 01/31/17 21:20 Dose: 650 mg Apixaban (Eliquis -) 2.5 mg PO BID [facility] Last Admin: 02/09/17 09:56 Dose: 2.5 mg Atorvastatin Calcium (Lipitor -) 80 mg PO HS [facility] Last Admin: 02/08/17 22:11 Dose: 80 mg Carvedilol (Coreg -) 6.25 mg PO DAILY [facility] Last Admin: 02/09/17 09:55 Dose: Not Given Docusate Sodium (Colace -) 100 mg PO BID [facility] Last Admin: 02/09/17 09:55 Dose: 100 mg Ondansetron HCl (Zofran Injection) 4 mg IVPB Q6H PRN PRN Reason: NAUSEA Polyethylene Glycol (Miralax (For Daily Use) -) 17 gm PO BID [facility] Last Admin: 02/09/17 09:58 Dose: 17 grams Tamsulosin HCl (Flomax -) 0.4 mg PO AM [facility] Last Admin: 02/09/17 06:32 Dose: 0.4 mg - Objective Vital Signs: Vital Signs Temperature 97.6 F 02/09/17 13:40 Pulse Rate 81 02/09/17 13:40 Respiratory Rate 20 02/09/17 13:40 Blood Pressure 90/59 02/09/17 13:40 O2 Sat by Pulse Oximetry (%) 99 02/09/17 11:48 Neck: Yes: Supple Cardiovascular: Yes: Regular Rate and Rhythm, S1, S2 Respiratory: Yes: Diminished Gastrointestinal: Yes: Normal Bowel Sounds, Soft. No: Tenderness Edema: No Labs: CBC, BMP 02/09/17 06:00 02/09/17 06:00 Problem List - Problems (1) Elevated troponin Code(s): R79.89 - OTHER SPECIFIED ABNORMAL FINDINGS OF BLOOD CHEMISTRY (2) Mental status change Code(s): R41.82 - ALTERED MENTAL STATUS, UNSPECIFIED Qualifiers: Altered mental status type: unspecified Qualified Code(s): R41.82 - Altered mental status, unspecified (3) Subendocardial ischemia Code(s): I24.8 - OTHER FORMS OF ACUTE ISCHEMIC HEART DISEASE (4) [id number] kidney injury Code(s): N17.9 - ACUTE KIDNEY FAILURE, UNSPECIFIED N18.9 - CHRONIC KIDNEY DISEASE, UNSPECIFIED (5) Atrial fibrillation Code(s): I48.91 - UNSPECIFIED ATRIAL FIBRILLATION Qualifiers: Atrial fibrillation type: chronic Qualified Code(s): I48.2 - Chronic atrial fibrillation (6) CHF (congestive heart failure) Code(s): I50.9 - HEART FAILURE, UNSPECIFIED Qualifiers: Congestive heart failure type: diastolic Congestive heart failure chronicity: chronic Qualified Code(s): I50.32 - Chronic diastolic ( congestive) heart failure (7) Coronary artery disease Code(s): I25.10 - ATHSCL HEART DISEASE OF [place] CORONARY ARTERY W/O ANG PCTRS Qualifiers: Coronary Disease-Associated Artery/Lesion type: [place] artery [place] vs. transplanted heart: [place] heart Associated angina: without angina Qualified Code(s): I25.10 - Atherosclerotic heart disease of [place] coronary artery without angina pectoris (8) HLD (hyperlipidemia) Code(s): E78.5 - HYPERLIPIDEMIA, UNSPECIFIED Qualifiers: Hyperlipidemia type: pure hypercholesterolemia Qualified Code(s): E78.00 - Pure hypercholesterolemia, unspecified; E78.0 - Pure hypercholesterolemia (9) HTN (hypertension) Code(s): I10 - ESSENTIAL (PRIMARY) HYPERTENSION Qualifiers: Hypertension type: essential hypertension Qualified Code(s): I10 - Essential (primary) hypertension (10) Pleural effusion Code(s): J90 - PLEURAL EFFUSION, NOT ELSEWHERE CLASSIFIED (11) Pulmonary mass Code(s): R91.8 - OTHER NONSPECIFIC ABNORMAL FINDING OF LUNG FIELD (12) Status post coronary artery stent placement Code(s): Z95.5 - PRESENCE OF CORONARY ANGIOPLASTY IMPLANT AND GRAFT Assessment/Plan 1. 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 Acute on chronic kidney injury with hyperkalemia 3. Acute on chronic diastolic CHF, infiltrative cardiomyopathy cannot be excluded 4. CAD post PCI/stent, subendocardial ischemia with troponins plateaued 5. HTN 6. Hypercholesterolemia 7. Questionable PAF although no clear documentation 8. Anemia 9. Pulmonary masses with R>L pleural effusion, r/o malignancy PLAN: 1. Continue Carvedilol 6.25 mg qd as hemodynamics tolerate 2. Diuretics held with monitoring renal function and electrolytes and resume Losartan once renal function stabilizes and hyperkalemia resolves 3. Continue Eliquis 2.5 mg bid and Lipitor 80 mg qd 4. Work up of pulmonary mass has been deferred as stated on previous note 5. Eventually SNF placement and continue aspiration precaution. DVT prophylaxis Further plans are to follow DNR Gulshan Escobedo MD
[2017-02-09] MEDS ORDERED: FUROSEMIDE 40 MG/4 ML INJECTABLE VIAL IVPUSH ONE (14:45)
[2017-02-09] MEDS: ATORVASTATIN CA 80 MG TABLET (FP) PO SCH (22:53)
[2017-02-10] MEDS: TAMSULOSIN HCL 0.4 MG CAP.ER.24H (FP) PO SCH (06:36)
[2017-02-10 07:24] LABS: BASOPHIL 0.6 % (0-2.0); EOSINOPHIL 1.3 % (0-4.5); MCH 29.4 pg (25.7-33.7); MCHC 32.3 g/dl (32.0-35.9); MEAN CELL VOLUME 90.9 fl (80-96); MEAN PLT VOLUME 9.3 fl (7.5-11.1); NEUTROPHILS 86.6 % (42.8-82.8); PLATELET COUNT 171 K/MM3 (134-434); RDW 19.2 % (11.9-15.9); WHITE BLOOD COUNT 9.9 K/mm3 (4.0-10.0)
[2017-02-10 07:47] LABS: ALBUMIN 2.9 g/dl (3.4-5.0); BILIRUBIN,TOTAL 1.2 mg/dL (0.2-1.0); CALCIUM 8.2 mg/dL (8.5-10.1); CREATININE 2.8 mg/dL (0.7-1.3); MAGNESIUM 3.5 mg/dL (1.8-2.4); PHOSPHOROUS 4.3 mg/dL (2.5-4.9); TOT PROT 6.3 g/dl (6.4-8.2)
[2017-02-10] MEDS: DOCUSATE SODIUM 100 MG CAPSULE (FP) PO SCH ×2 (10:34→22:26)
[2017-02-10] MEDS: CARVEDILOL 6.25 MG TABLET (FP) PO SCH (10:34)
[2017-02-10] MEDS: APIXABAN 2.5 MG TABLET PO SCH ×2 (10:34→22:26)
[2017-02-10] MEDS ORDERED: PT OWN MED DRAWER 7, Y5N ONE ×2 (10:34→21:38)
[2017-02-10] MEDS: POLYETHYLENE GLYCOL 3350 119 GM BTL PO SCH ×2 (10:35→22:26)
--- NOTE | 2017-02-10 10:53 | PN ---
Progress Note (short form) - Note Progress Note: Patient seen and examined. Chart reviewed at length. Currently sitting up in bed and appears confused, agitated and more lethargic than yesterday. O2 saturation performed by RN is 99 on 40% Venti-mask. Labs, CXR and physician notes reviewed. Was given one dose of iv furosemide yesterday. Still has dyspnea and basilar rales as well as mild increase in BUN/Cr. Selected Entries 02/09/17 02/10/17 21:00 09:00 Temperature 98.2 F Pulse Rate 62 Respiratory 18 Rate Blood Pressure 101/64 O2 Sat by Pulse 99 Oximetry (%) Oxygen Delivery Venturi Mask Method Fraction of 40 Inspired Oxygen (FIO2) Laboratory Tests 02/09/17 02/10/17 02/10/17 06:00 06:00 06:00 WBC 9.9 Hgb 11.8 Hct 36.6 Plt Count 171 Sodium 147 H Potassium 5.2 H Chloride 109 H Carbon Dioxide 24 BUN 115 H* Creatinine 2.8 H Random Glucose 94 Calcium 8.2 L Phosphorus 4.3 Magnesium 3.5 H Total Bilirubin 1.2 H AST 38 H D ALT 33 Alkaline Phosphatase 125 H Total Protein 6.3 L Albumin 2.9 L TSH 2.03 Chest Rales bilaterally 1/[address] No upper airway congestion Cor Irregular No new murmur Marked NVD Abd. Distended, tympanitic, nontender. BS positive No mass Ext No peripheral edema Neuro No new focal deficit but is lethargic,confused and mildly agitated Assessment and Plan Mental status change Likely toxic/metabolic encephalopathy in setting of underlying dementia which according to the notes had improved, but has now recurred Dementia As above ASHD H/O mildly positive troponins of note H/O known CAD AFib On Eliquis H/O CHF Bilateral pleural effusions and engorged neck veins Yesterday was given dose of diuretic without significant improvement It is unclear what other options are available, given renal disease CRI 80/2.1.>79/2.1>>>>113/2.7>>115/2.8 Hyperphosphatemia Noted previously c/w ARF/CRI Hypoalbuminemia Chronic Likely related to underlying acute/chronic disease as well as nutritional factors H/O Hypertenion with recent hypotension Cardiology assessment HPL Stable Anemia 10.9/33.9>>11.8/37.0>>11.8/36.6 Dehydrated Back pain Currently stable BPH On tamsulosin Abdominal distension Noted this AM Bilateral pleural effusions CXR reviewed Hypermagnesemia Monitor Renal dysfunction noted Continue supportive care Difficult fluid management problem Discuss with cardiology and renal
--- NOTE | 2017-02-10 17:10 | PN ---
Progress Note, Physician Chief Complaint: Events noted Intermittent dyspnea on ventimask O2 History of Present Illness: Patient was seen and examined. Awake. Chart was reviewed Denies chest pain or palpitation - Current Medication List Current Medications: Active Medications Acetaminophen (Tylenol -) 650 mg PO Q4H PRN PRN Reason: FEVER OR PAIN Last Admin: 01/31/17 21:20 Dose: 650 mg Apixaban (Eliquis -) 2.5 mg PO BID [facility] Last Admin: 02/10/17 10:34 Dose: 2.5 mg Atorvastatin Calcium (Lipitor -) 80 mg PO HS [facility] Last Admin: 02/09/17 22:53 Dose: 80 mg Carvedilol (Coreg -) 6.25 mg PO DAILY [facility] Last Admin: 02/10/17 10:34 Dose: 6.25 mg Docusate Sodium (Colace -) 100 mg PO BID [facility] Last Admin: 02/10/17 10:34 Dose: 100 mg Ondansetron HCl (Zofran Injection) 4 mg IVPB Q6H PRN PRN Reason: NAUSEA Polyethylene Glycol (Miralax (For Daily Use) -) 17 gm PO BID [facility] Last Admin: 02/10/17 10:35 Dose: 17 grams Tamsulosin HCl (Flomax -) 0.4 mg PO AM [facility] Last Admin: 02/10/17 06:36 Dose: 0.4 mg - Objective Vital Signs: Vital Signs Temperature 97.3 F L 02/10/17 14:17 Pulse Rate 86 02/10/17 14:17 Respiratory Rate 20 02/10/17 14:17 Blood Pressure 108/56 02/10/17 14:17 O2 Sat by Pulse Oximetry (%) 99 02/09/17 21:00 Neck: Yes: Supple Cardiovascular: Yes: Pulse Irregular, S1, S2 Respiratory: Yes: Diminished Gastrointestinal: Yes: Normal Bowel Sounds, Soft. No: Tenderness Edema: No Labs: CBC, BMP 02/10/17 06:00 02/10/17 06:00 Problem List - Problems (1) Elevated troponin Code(s): R79.89 - OTHER SPECIFIED ABNORMAL FINDINGS OF BLOOD CHEMISTRY (2) Mental status change Code(s): R41.82 - ALTERED MENTAL STATUS, UNSPECIFIED Qualifiers: Altered mental status type: unspecified Qualified Code(s): R41.82 - Altered mental status, unspecified (3) Subendocardial ischemia Code(s): I24.8 - OTHER FORMS OF ACUTE ISCHEMIC HEART DISEASE (4) Nkeqo-ck-cpetckt kidney injury Code(s): N17.9 - ACUTE KIDNEY FAILURE, UNSPECIFIED N18.9 - CHRONIC KIDNEY DISEASE, UNSPECIFIED (5) Atrial fibrillation Code(s): I48.91 - UNSPECIFIED ATRIAL FIBRILLATION Qualifiers: Atrial fibrillation type: chronic Qualified Code(s): I48.2 - Chronic atrial fibrillation (6) CHF (congestive heart failure) Code(s): I50.9 - HEART FAILURE, UNSPECIFIED Qualifiers: Congestive heart failure type: diastolic Congestive heart failure chronicity: chronic Qualified Code(s): I50.32 - Chronic diastolic ( congestive) heart failure (7) Coronary artery disease Code(s): I25.10 - ATHSCL HEART DISEASE OF [place] CORONARY ARTERY W/O ANG PCTRS Qualifiers: Coronary Disease-Associated Artery/Lesion type: [place] artery [place] vs. transplanted heart: [place] heart Associated angina: without angina Qualified Code(s): I25.10 - Atherosclerotic heart disease of [place] coronary artery without angina pectoris (8) HLD (hyperlipidemia) Code(s): E78.5 - HYPERLIPIDEMIA, UNSPECIFIED Qualifiers: Hyperlipidemia type: pure hypercholesterolemia Qualified Code(s): E78.00 - Pure hypercholesterolemia, unspecified; E78.0 - Pure hypercholesterolemia (9) HTN (hypertension) Code(s): I10 - ESSENTIAL (PRIMARY) HYPERTENSION Qualifiers: Hypertension type: essential hypertension Qualified Code(s): I10 - Essential (primary) hypertension (10) Pleural effusion Code(s): J90 - PLEURAL EFFUSION, NOT ELSEWHERE CLASSIFIED (11) Pulmonary mass Code(s): R91.8 - OTHER NONSPECIFIC ABNORMAL FINDING OF LUNG FIELD (12) Status post coronary artery stent placement Code(s): Z95.5 - PRESENCE OF CORONARY ANGIOPLASTY IMPLANT AND GRAFT Assessment/Plan 1. 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 Acute on chronic kidney injury with hyperkalemia 3. Acute on chronic diastolic CHF, infiltrative cardiomyopathy cannot be excluded 4. CAD post PCI/stent, subendocardial ischemia 5. HTN 6. Hypercholesterolemia 7. Questionable PAF although no clear documentation 8. Anemia 9. Pulmonary masses with R>L pleural effusion, r/o malignancy PLAN: 1. Continue Carvedilol as hemodynamics tolerate 2. Diuretics held with monitoring renal function and electrolytes and resume Losartan once renal function stabilizes and hyperkalemia resolves 3. Continue Eliquis 2.5 mg bid and Lipitor 80 mg qd 4. Work up of pulmonary mass has been deferred as stated on previous note 5. Eventually SNF placement and continue aspiration precaution. DVT prophylaxis Further plans are to follow DNR Gulshan Escobedo MD
[2017-02-10] MEDS: ATORVASTATIN CA 80 MG TABLET (FP) PO SCH (22:26)
[2017-02-10] MEDS: ACETAMINOPHEN 325 MG TABLET (FP) PO PRN (22:26)
[2017-02-11] MEDS: TAMSULOSIN HCL 0.4 MG CAP.ER.24H (FP) PO SCH (06:38)
[2017-02-11 07:55] LABS: BASOPHIL 0.3 % (0-2.0); MCH 29.2 pg (25.7-33.7); MCHC 31.7 g/dl (32.0-35.9); MEAN PLT VOLUME 9.4 fl (7.5-11.1); NEUTROPHILS 88.4 % (42.8-82.8); PLATELET COUNT 160 K/MM3 (134-434); RDW 19.8 % (11.9-15.9); WHITE BLOOD COUNT 9.3 K/mm3 (4.0-10.0)
[2017-02-11 08:11] LABS: ALBUMIN 2.8 g/dl (3.4-5.0); CREATININE 2.8 mg/dL (0.7-1.3); MAGNESIUM 3.6 mg/dL (1.8-2.4)
[2017-02-11 08:15] LABS: BILIRUBIN,TOTAL 1.1 mg/dL (0.2-1.0); TOT PROT 6.2 g/dl (6.4-8.2)
[2017-02-11] MEDS ORDERED: PT OWN MED DRAWER 7, Y5N ONE (11:04)
[2017-02-11] MEDS: POLYETHYLENE GLYCOL 3350 119 GM BTL PO SCH ×2 (13:03→22:44)
[2017-02-11] MEDS: APIXABAN 2.5 MG TABLET PO SCH ×2 (13:03→22:45)
[2017-02-11] MEDS: DOCUSATE SODIUM 100 MG CAPSULE (FP) PO SCH ×2 (13:03→22:45)
[2017-02-11] MEDS: CARVEDILOL 6.25 MG TABLET (FP) PO SCH (13:03)
--- NOTE | 2017-02-11 15:12 | PN ---
Progress Note, Physician Chief Complaint: Events noted Intermittent dyspnea on ventimask O2 Baseline organic brain syndrome History of Present Illness: Patient was seen and examined. Awake. Chart was reviewed No significant change compared to when seen yesterday - Current Medication List Current Medications: Active Medications Acetaminophen (Tylenol -) 650 mg PO Q4H PRN PRN Reason: FEVER OR PAIN Last Admin: 02/10/17 22:26 Dose: 650 mg Apixaban (Eliquis -) 2.5 mg PO BID [facility] Last Admin: 02/11/17 13:03 Dose: 2.5 mg Atorvastatin Calcium (Lipitor -) 80 mg PO HS [facility] Last Admin: 02/10/17 22:26 Dose: 80 mg Carvedilol (Coreg -) 6.25 mg PO DAILY [facility] Last Admin: 02/11/17 13:03 Dose: 6.25 mg Docusate Sodium (Colace -) 100 mg PO BID [facility] Last Admin: 02/11/17 13:03 Dose: 100 mg Ondansetron HCl (Zofran Injection) 4 mg IVPB Q6H PRN PRN Reason: NAUSEA Polyethylene Glycol (Miralax (For Daily Use) -) 17 gm PO BID [facility] Last Admin: 02/11/17 13:03 Dose: Not Given Tamsulosin HCl (Flomax -) 0.4 mg PO AM [facility] Last Admin: 02/11/17 06:38 Dose: 0.4 mg - Objective Vital Signs: Vital Signs Temperature 97.5 F L 02/11/17 14:57 Pulse Rate 87 02/11/17 10:00 Respiratory Rate 20 02/11/17 10:00 Blood Pressure 101/47 02/11/17 10:00 O2 Sat by Pulse Oximetry (%) 99 02/10/17 21:00 Neck: Yes: Supple Cardiovascular: Yes: Pulse Irregular, S1, S2 Respiratory: Yes: Diminished Gastrointestinal: Yes: Normal Bowel Sounds, Soft. No: Tenderness Edema: No Labs: CBC, BMP 02/11/17 06:15 02/11/17 06:15 Problem List - Problems (1) Elevated troponin Code(s): R79.89 - OTHER SPECIFIED ABNORMAL FINDINGS OF BLOOD CHEMISTRY (2) Mental status change Code(s): R41.82 - ALTERED MENTAL STATUS, UNSPECIFIED Qualifiers: Altered mental status type: unspecified Qualified Code(s): R41.82 - Altered mental status, unspecified (3) Subendocardial ischemia Code(s): I24.8 - OTHER FORMS OF ACUTE ISCHEMIC HEART DISEASE (4) Iyolj-mx-hatavvg kidney injury Code(s): N17.9 - ACUTE KIDNEY FAILURE, UNSPECIFIED N18.9 - CHRONIC KIDNEY DISEASE, UNSPECIFIED (5) Atrial fibrillation Code(s): I48.91 - UNSPECIFIED ATRIAL FIBRILLATION Qualifiers: Atrial fibrillation type: chronic Qualified Code(s): I48.2 - Chronic atrial fibrillation (6) CHF (congestive heart failure) Code(s): I50.9 - HEART FAILURE, UNSPECIFIED Qualifiers: Congestive heart failure type: diastolic Congestive heart failure chronicity: chronic Qualified Code(s): I50.32 - Chronic diastolic ( congestive) heart failure (7) Coronary artery disease Code(s): I25.10 - ATHSCL HEART DISEASE OF [place] CORONARY ARTERY W/O ANG PCTRS Qualifiers: Coronary Disease-Associated Artery/Lesion type: [place] artery [place] vs. transplanted heart: [place] heart Associated angina: without angina Qualified Code(s): I25.10 - Atherosclerotic heart disease of [place] coronary artery without angina pectoris (8) HLD (hyperlipidemia) Code(s): E78.5 - HYPERLIPIDEMIA, UNSPECIFIED Qualifiers: Hyperlipidemia type: pure hypercholesterolemia Qualified Code(s): E78.00 - Pure hypercholesterolemia, unspecified; E78.0 - Pure hypercholesterolemia (9) HTN (hypertension) Code(s): I10 - ESSENTIAL (PRIMARY) HYPERTENSION Qualifiers: Hypertension type: essential hypertension Qualified Code(s): I10 - Essential (primary) hypertension (10) Pleural effusion Code(s): J90 - PLEURAL EFFUSION, NOT ELSEWHERE CLASSIFIED (11) Pulmonary mass Code(s): R91.8 - OTHER NONSPECIFIC ABNORMAL FINDING OF LUNG FIELD (12) Status post coronary artery stent placement Code(s): Z95.5 - PRESENCE OF CORONARY ANGIOPLASTY IMPLANT AND GRAFT Assessment/Plan 1. 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 Acute on chronic kidney injury with hyperkalemia and hypernatremia 3. Acute on chronic diastolic CHF, infiltrative cardiomyopathy cannot be excluded 4. CAD post PCI/stent, subendocardial ischemia 5. HTN 6. Hypercholesterolemia 7. Atrial fibrillation 8. Anemia 9. Pulmonary masses with R>L pleural effusion, r/o malignancy PLAN: 1. Continue Carvedilol as hemodynamics tolerate 2. Diuretics held with monitoring renal function and electrolytes and resume Losartan once renal function stabilizes and hyperkalemia resolves. Follow Na level closely 3. Continue Eliquis 2.5 mg bid and continue Lipitor 4. Work up of pulmonary mass has been deferred as stated on previous note 5. Eventually SNF placement and continue aspiration precaution. DVT prophylaxis Further plans are to follow DNR Gulshan Escobedo MD
--- NOTE | 2017-02-11 15:41 | PN ---
Progress Note, Physician Chief Complaint: Mr Wisdom is asking when he can go home. He is very confused today and cannot give me a subjective. - Current Medication List Current Medications: Active Medications Acetaminophen (Tylenol -) 650 mg PO Q4H PRN PRN Reason: FEVER OR PAIN Last Admin: 02/10/17 22:26 Dose: 650 mg Apixaban (Eliquis -) 2.5 mg PO BID [facility] Last Admin: 02/11/17 13:03 Dose: 2.5 mg Atorvastatin Calcium (Lipitor -) 80 mg PO HS [facility] Last Admin: 02/10/17 22:26 Dose: 80 mg Carvedilol (Coreg -) 6.25 mg PO DAILY [facility] Last Admin: 02/11/17 13:03 Dose: 6.25 mg Docusate Sodium (Colace -) 100 mg PO BID [facility] Last Admin: 02/11/17 13:03 Dose: 100 mg Ondansetron HCl (Zofran Injection) 4 mg IVPB Q6H PRN PRN Reason: NAUSEA Polyethylene Glycol (Miralax (For Daily Use) -) 17 gm PO BID [facility] Last Admin: 02/11/17 13:03 Dose: Not Given Tamsulosin HCl (Flomax -) 0.4 mg PO AM [facility] Last Admin: 02/11/17 06:38 Dose: 0.4 mg - Objective Vital Signs: Vital Signs Temperature 97.5 F L 02/11/17 14:57 Pulse Rate 79 02/11/17 15:12 Respiratory Rate 20 02/11/17 15:12 Blood Pressure 133/56 02/11/17 15:12 O2 Sat by Pulse Oximetry (%) 99 02/10/17 21:00 Constitutional: Yes: [place], Mild Distress, Thin Cardiovascular: Yes: Tachycardia. No: Gallop, Murmur, Rub Respiratory: Yes: Regular, On Nasal O2, Rhonchi. No: Rales, Wheezes Gastrointestinal: Yes: Normal Bowel Sounds, Soft, Distention. No: Tenderness Extremities: Yes: WNL Edema: Yes Edema: LLE: 1+, RLE: 1+ Labs: CBC, BMP 02/11/17 06:15 02/11/17 06:15 Problem List - Problems (1) Acute metabolic encephalopathy Code(s): G93.41 - METABOLIC ENCEPHALOPATHY (2) Glpof-hb-uywrlyr kidney injury Code(s): N17.9 - ACUTE KIDNEY FAILURE, UNSPECIFIED N18.9 - CHRONIC KIDNEY DISEASE, UNSPECIFIED (3) Elevated troponin Code(s): R79.89 - OTHER SPECIFIED ABNORMAL FINDINGS OF BLOOD CHEMISTRY (4) Atrial fibrillation Code(s): I48.91 - UNSPECIFIED ATRIAL FIBRILLATION Qualifiers: Atrial fibrillation type: chronic Qualified Code(s): I48.2 - Chronic atrial fibrillation (5) BPH (benign prostatic hyperplasia) Code(s): N40.0 - BENIGN PROSTATIC HYPERPLASIA WITHOUT LOWER URINRY TRACT SYMP (6) CHF (congestive heart failure) Code(s): I50.9 - HEART FAILURE, UNSPECIFIED Qualifiers: Congestive heart failure type: diastolic Congestive heart failure chronicity: chronic Qualified Code(s): I50.32 - Chronic diastolic ( congestive) heart failure (7) Coronary artery disease Code(s): I25.10 - ATHSCL HEART DISEASE OF [place] CORONARY ARTERY W/O ANG PCTRS Qualifiers: Coronary Disease-Associated Artery/Lesion type: [place] artery [place] vs. transplanted heart: [place] heart Associated angina: without angina Qualified Code(s): I25.10 - Atherosclerotic heart disease of [place] coronary artery without angina pectoris (8) HLD (hyperlipidemia) Code(s): E78.5 - HYPERLIPIDEMIA, UNSPECIFIED Qualifiers: Hyperlipidemia type: pure hypercholesterolemia Qualified Code(s): E78.00 - Pure hypercholesterolemia, unspecified; E78.0 - Pure hypercholesterolemia (9) HTN (hypertension) Code(s): I10 - ESSENTIAL (PRIMARY) HYPERTENSION Qualifiers: Hypertension type: essential hypertension Qualified Code(s): I10 - Essential (primary) hypertension (10) Abdominal distension Code(s): R14.0 - ABDOMINAL DISTENSION (GASEOUS) Assessment/Plan (1) Acute metabolic encephalopathy Assessment/Plan: -worsening -suspect end stage -will d/w daughter about palliative care Code(s): G93.41 - METABOLIC ENCEPHALOPATHY (2) Czcko-ls-pltdtvf kidney injury Assessment/Plan: -BUN/Cr worsening -nephrology following -difficult because patient is fluid overloaded but lasix worsens renal function Code(s): N17.9 - ACUTE KIDNEY FAILURE, UNSPECIFIED N18.9 - CHRONIC KIDNEY DISEASE, UNSPECIFIED (3) Elevated troponin Assessment/Plan: -appreciate cardiology assistance -no further work up needed Code(s): R79.89 - OTHER SPECIFIED ABNORMAL FINDINGS OF BLOOD CHEMISTRY (4) Atrial fibrillation Assessment/Plan: -continue eliquis and coreg Code(s): I48.91 - UNSPECIFIED ATRIAL FIBRILLATION Qualifiers: Atrial fibrillation type: chronic Qualified Code(s): I48.2 - Chronic atrial fibrillation (5) BPH (benign prostatic hyperplasia) Assessment/Plan: -continue flomax Code(s): N40.0 - BENIGN PROSTATIC HYPERPLASIA WITHOUT LOWER URINRY TRACT SYMP (6) CHF (congestive heart failure) Assessment/Plan: -cardiology following -end stage -? palliative care Code(s): I50.9 - HEART FAILURE, UNSPECIFIED Qualifiers: Congestive heart failure type: diastolic Congestive heart failure chronicity: chronic Qualified Code(s): I50.32 - Chronic diastolic ( congestive) heart failure (7) Coronary artery disease Assessment/Plan: -cardiology following -appreciate assistance Code(s): I25.10 - ATHSCL HEART DISEASE OF [place] CORONARY ARTERY W/O ANG PCTRS Qualifiers: Coronary Disease-Associated Artery/Lesion type: [place] artery [place] vs. transplanted heart: [place] heart Associated angina: without angina Qualified Code(s): I25.10 - Atherosclerotic heart disease of [place] coronary artery without angina pectoris (8) HLD (hyperlipidemia) Assessment/Plan: -continue statin Code(s): E78.5 - HYPERLIPIDEMIA, UNSPECIFIED Qualifiers: Hyperlipidemia type: pure hypercholesterolemia (9) HTN (hypertension) Assessment/Plan: -controlled Code(s): I10 - ESSENTIAL (PRIMARY) HYPERTENSION Qualifiers: Hypertension type: essential hypertension Qualified Code(s): I10 - Essential (primary) hypertension (10) Abdominal distension Assessment/Plan: -+bm -continue stool softeners Code(s): R14.0 - ABDOMINAL DISTENSION (GASEOUS)
--- NOTE | 2017-02-11 17:29 | PN ---
Progress Note (short form) - Note Progress Note: Renal follow up for DARNELL on CKD Pt seen and examined at the bedside pt is confused and disoriented Dunn in place, started on Saturday pt with much urine output Vital Signs Temperature 97.5 F L 02/11/17 14:57 Pulse Rate 79 02/11/17 15:12 Respiratory Rate 20 02/11/17 15:12 Blood Pressure 133/56 02/11/17 15:12 O2 Sat by Pulse Oximetry (%) 99 02/10/17 21:00 Intake & Output 02/08/17 02/09/17 02/10/17 02/11/17 23:59 23:59 23:59 23:59 Intake Total 400 100 150 Output Total 450 350 250 Balance 400 -350 -200 -250 Gen: NAD, awake and alert CVS: RRR, No M/R Lungs: + rales at lung bases Abd: soft NT/ND Ext: 1+ edema in LE B/L Neuro: AAOX3, slow, confused : Dunn in place CBC, BMP 02/11/17 06:15 02/11/17 06:15 Current Medications Acetaminophen (Tylenol -) 650 mg PO Q4H PRN PRN Reason: FEVER OR PAIN Last Admin: 02/10/17 22:26 Dose: 650 mg Apixaban (Eliquis -) 2.5 mg PO BID [facility] Last Admin: 02/11/17 13:03 Dose: 2.5 mg Atorvastatin Calcium (Lipitor -) 80 mg PO HS [facility] Last Admin: 02/10/17 22:26 Dose: 80 mg Carvedilol (Coreg -) 6.25 mg PO DAILY [facility] Last Admin: 02/11/17 13:03 Dose: 6.25 mg Docusate Sodium (Colace -) 100 mg PO BID [facility] Last Admin: 02/11/17 13:03 Dose: 100 mg Ondansetron HCl (Zofran Injection) 4 mg IVPB Q6H PRN PRN Reason: NAUSEA Polyethylene Glycol (Miralax (For Daily Use) -) 17 gm PO BID [facility] Last Admin: 02/11/17 13:03 Dose: Not Given Tamsulosin HCl (Flomax -) 0.4 mg PO AM [facility] Last Admin: 02/11/17 06:38 Dose: 0.4 mg A/p #DARNELL on CKD Renal function worse over the course of this admission but essentially stable over the last [address] but pt with minimal urine output will give Lasix 40mg IVP and attempt to force more urine output overall prognosis is poor given multiorgan dysfunction palliative care evaluation as per primary Not a candidate for [employer] Dose all meds for Cr Cl less then 10 Thank you Devin Edmondson DO
[2017-02-11] MEDS ORDERED: FUROSEMIDE 40 MG/4 ML INJECTABLE VIAL IVPUSH ONE (17:30)
[2017-02-11] MEDS: ATORVASTATIN CA 80 MG TABLET (FP) PO SCH (22:45)
[2017-02-12] MEDS: TAMSULOSIN HCL 0.4 MG CAP.ER.24H (FP) PO SCH (06:19)
[2017-02-12 07:27] LABS: BASOPHIL 0.4 % (0-2.0); EOSINOPHIL 2.1 % (0-4.5); MCH 29.4 pg (25.7-33.7); MCHC 32.2 g/dl (32.0-35.9); MEAN CELL VOLUME 91.3 fl (80-96); MEAN PLT VOLUME 9.4 fl (7.5-11.1); NEUTROPHILS 86.6 % (42.8-82.8); PLATELET COUNT 146 K/MM3 (134-434); RDW 19.8 % (11.9-15.9); WHITE BLOOD COUNT 8.7 K/mm3 (4.0-10.0)
[2017-02-12 08:16] LABS: CREATININE 2.9 mg/dL (0.7-1.3); MAGNESIUM 3.7 mg/dL (1.8-2.4); PHOSPHOROUS 4.7 mg/dL (2.5-4.9)
[2017-02-12] MEDS ORDERED: PT OWN MED DRAWER 7, Y5N ONE (09:40)
[2017-02-12] MEDS: DOCUSATE SODIUM 100 MG CAPSULE (FP) PO SCH ×2 (09:59→21:13)
[2017-02-12] MEDS: APIXABAN 2.5 MG TABLET PO SCH ×2 (09:59→21:13)
[2017-02-12] MEDS: CARVEDILOL 6.25 MG TABLET (FP) PO SCH (09:59)
[2017-02-12] MEDS: POLYETHYLENE GLYCOL 3350 119 GM BTL PO SCH ×2 (10:00→21:13)
--- NOTE | 2017-02-12 11:32 | PN ---
Progress Note, Physician Chief Complaint: Events noted Intermittent dyspnea on ventimask O2 Baseline organic brain syndrome History of Present Illness: Patient was seen and examined. Awake. Chart was reviewed No significant change compared to when seen yesterday - Current Medication List Current Medications: Active Medications Acetaminophen (Tylenol -) 650 mg PO Q4H PRN PRN Reason: FEVER OR PAIN Last Admin: 02/10/17 22:26 Dose: 650 mg Apixaban (Eliquis -) 2.5 mg PO BID [facility] Last Admin: 02/12/17 09:59 Dose: 2.5 mg Atorvastatin Calcium (Lipitor -) 80 mg PO HS [facility] Last Admin: 02/11/17 22:45 Dose: 80 mg Carvedilol (Coreg -) 6.25 mg PO DAILY [facility] Last Admin: 02/12/17 09:59 Dose: 6.25 mg Docusate Sodium (Colace -) 100 mg PO BID [facility] Last Admin: 02/12/17 09:59 Dose: 100 mg Ondansetron HCl (Zofran Injection) 4 mg IVPB Q6H PRN PRN Reason: NAUSEA Polyethylene Glycol (Miralax (For Daily Use) -) 17 gm PO BID [facility] Last Admin: 02/12/17 10:00 Dose: Not Given Tamsulosin HCl (Flomax -) 0.4 mg PO AM [facility] Last Admin: 02/12/17 06:19 Dose: 0.4 mg - Objective Vital Signs: Vital Signs Temperature 97.5 F L 02/12/17 05:26 Pulse Rate 98 H 02/12/17 05:26 Respiratory Rate 20 02/12/17 05:26 Blood Pressure 96/40 02/12/17 05:26 O2 Sat by Pulse Oximetry (%) 99 02/10/17 21:00 Neck: Yes: Supple Cardiovascular: Yes: Pulse Irregular, S1, S2 Respiratory: Yes: Diminished Gastrointestinal: Yes: Normal Bowel Sounds, Soft. No: Tenderness Edema: No Labs: CBC, BMP 02/12/17 06:00 02/12/17 06:00 Problem List - Problems (1) Elevated troponin Code(s): R79.89 - OTHER SPECIFIED ABNORMAL FINDINGS OF BLOOD CHEMISTRY (2) Mental status change Code(s): R41.82 - ALTERED MENTAL STATUS, UNSPECIFIED Qualifiers: Altered mental status type: unspecified Qualified Code(s): R41.82 - Altered mental status, unspecified (3) Subendocardial ischemia Code(s): I24.8 - OTHER FORMS OF ACUTE ISCHEMIC HEART DISEASE (4) Voimy-cx-gbdnutj kidney injury Code(s): N17.9 - ACUTE KIDNEY FAILURE, UNSPECIFIED N18.9 - CHRONIC KIDNEY DISEASE, UNSPECIFIED (5) Atrial fibrillation Code(s): I48.91 - UNSPECIFIED ATRIAL FIBRILLATION Qualifiers: Atrial fibrillation type: chronic Qualified Code(s): I48.2 - Chronic atrial fibrillation (6) CHF (congestive heart failure) Code(s): I50.9 - HEART FAILURE, UNSPECIFIED Qualifiers: Congestive heart failure type: diastolic Congestive heart failure chronicity: chronic Qualified Code(s): I50.32 - Chronic diastolic ( congestive) heart failure (7) Coronary artery disease Code(s): I25.10 - ATHSCL HEART DISEASE OF [place] CORONARY ARTERY W/O ANG PCTRS Qualifiers: Coronary Disease-Associated Artery/Lesion type: [place] artery [place] vs. transplanted heart: [place] heart Associated angina: without angina Qualified Code(s): I25.10 - Atherosclerotic heart disease of [place] coronary artery without angina pectoris (8) HLD (hyperlipidemia) Code(s): E78.5 - HYPERLIPIDEMIA, UNSPECIFIED Qualifiers: Hyperlipidemia type: pure hypercholesterolemia Qualified Code(s): E78.00 - Pure hypercholesterolemia, unspecified; E78.0 - Pure hypercholesterolemia (9) HTN (hypertension) Code(s): I10 - ESSENTIAL (PRIMARY) HYPERTENSION Qualifiers: Hypertension type: essential hypertension Qualified Code(s): I10 - Essential (primary) hypertension (10) Pleural effusion Code(s): J90 - PLEURAL EFFUSION, NOT ELSEWHERE CLASSIFIED (11) Pulmonary mass Code(s): R91.8 - OTHER NONSPECIFIC ABNORMAL FINDING OF LUNG FIELD (12) Status post coronary artery stent placement Code(s): Z95.5 - PRESENCE OF CORONARY ANGIOPLASTY IMPLANT AND GRAFT Assessment/Plan 1. 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 Acute on chronic kidney injury with hyperkalemia and hypernatremia 3. Acute on chronic diastolic CHF, infiltrative cardiomyopathy cannot be excluded 4. CAD post PCI/stent, subendocardial ischemia 5. HTN 6. Hypercholesterolemia 7. Atrial fibrillation 8. Anemia 9. Pulmonary masses with R>L pleural effusion, r/o malignancy PLAN: 1. Continue Carvedilol as hemodynamics tolerate 2. Diuretics as needed with monitoring renal function and electrolytes and resume Losartan once renal function stabilizes and hyperkalemia resolves. Follow Na level closely for hypernatremia 3. Continue Eliquis 2.5 mg bid and continue Lipitor 4. Work up of pulmonary mass has been deferred as stated on previous note 5. Eventually SNF placement and continue aspiration precaution. DVT prophylaxis Further plans are to follow DNR Gulshan Escobedo MD
--- NOTE | 2017-02-12 11:49 | PN ---
Progress Note (short form) - Note Progress Note: Renal follow up for DARNELL on CKD Pt seen and examined at the bedside on Facemask O2 confused no significant improvement in urine output with IV lasix yesterday Vital Signs Temperature 97.5 F L 02/12/17 05:26 Pulse Rate 98 H 02/12/17 05:26 Respiratory Rate 20 02/12/17 05:26 Blood Pressure 96/40 02/12/17 05:26 O2 Sat by Pulse Oximetry (%) 99 02/10/17 21:00 Intake & Output 02/09/17 02/10/17 02/11/17 02/12/17 23:59 23:59 23:59 23:59 Intake Total 100 150 Output Total 450 350 350 150 Balance -350 -200 -350 -150 Gen: NAD, awake and alert CVS: RRR, No M/R Lungs: + rales at lung bases Abd: soft NT/ND Ext: 1+ edema in LE B/L Neuro: AAOX3, slow, confused : Dunn in place CBC, BMP 02/12/17 06:00 02/12/17 06:00 Current Medications Acetaminophen (Tylenol -) 650 mg PO Q4H PRN PRN Reason: FEVER OR PAIN Last Admin: 02/10/17 22:26 Dose: 650 mg Apixaban (Eliquis -) 2.5 mg PO BID [facility] Last Admin: 02/12/17 09:59 Dose: 2.5 mg Atorvastatin Calcium (Lipitor -) 80 mg PO HS [facility] Last Admin: 02/11/17 22:45 Dose: 80 mg Carvedilol (Coreg -) 6.25 mg PO DAILY [facility] Last Admin: 02/12/17 09:59 Dose: 6.25 mg Docusate Sodium (Colace -) 100 mg PO BID [facility] Last Admin: 02/12/17 09:59 Dose: 100 mg Ondansetron HCl (Zofran Injection) 4 mg IVPB Q6H PRN PRN Reason: NAUSEA Polyethylene Glycol (Miralax (For Daily Use) -) 17 gm PO BID [facility] Last Admin: 02/12/17 10:00 Dose: Not Given Tamsulosin HCl (Flomax -) 0.4 mg PO AM [facility] Last Admin: 02/12/17 06:19 Dose: 0.4 mg #Acute on Chronic Renal failure, now oliguric BUN/Cr w/o improvement, oliguric urine output at this time Additional Tiral of IV lasix today 80mg IVPB trend urne output pt is not a candidate for dialysis given co-morbid conditions and family wishes continue supportive care palliative care evaluation Thank you Devin Edmondson DO
[2017-02-12] MEDS ORDERED: FUROSEMIDE 40 MG/4 ML INJECTABLE VIAL IVPB ONE (12:15)
--- NOTE | 2017-02-12 15:39 | PN ---
Progress Note, Physician Chief Complaint: Mr Wisdom continues to ask if he can go home. He is very lethargic today and speech is very slurred. He says he is short of breath but I cannot obtain further subjective. - Current Medication List Current Medications: Active Medications Acetaminophen (Tylenol -) 650 mg PO Q4H PRN PRN Reason: FEVER OR PAIN Last Admin: 02/10/17 22:26 Dose: 650 mg Apixaban (Eliquis -) 2.5 mg PO BID [facility] Last Admin: 02/12/17 09:59 Dose: 2.5 mg Atorvastatin Calcium (Lipitor -) 80 mg PO HS [facility] Last Admin: 02/11/17 22:45 Dose: 80 mg Carvedilol (Coreg -) 6.25 mg PO DAILY [facility] Last Admin: 02/12/17 09:59 Dose: 6.25 mg Docusate Sodium (Colace -) 100 mg PO BID [facility] Last Admin: 02/12/17 09:59 Dose: 100 mg Ondansetron HCl (Zofran Injection) 4 mg IVPB Q6H PRN PRN Reason: NAUSEA Polyethylene Glycol (Miralax (For Daily Use) -) 17 gm PO BID [facility] Last Admin: 02/12/17 10:00 Dose: Not Given Tamsulosin HCl (Flomax -) 0.4 mg PO AM [facility] Last Admin: 02/12/17 06:19 Dose: 0.4 mg - Objective Vital Signs: Vital Signs Temperature 97.2 F L 02/12/17 14:26 Pulse Rate 102 H 02/12/17 14:26 Respiratory Rate 20 02/12/17 14:26 Blood Pressure 107/57 02/12/17 14:26 O2 Sat by Pulse Oximetry (%) 99 02/10/17 21:00 Constitutional: Yes: No Distress, Other (lethargic, dusky appearance) Cardiovascular: Yes: Pulse Irregular, JVD. No: Gallop, Murmur, Rub Respiratory: Yes: On Nasal O2, Rhonchi, Tachypnea Gastrointestinal: Yes: Normal Bowel Sounds, Soft. No: Distention, Tenderness Extremities: Yes: WNL Edema: Yes Edema: LLE: 1+, RLE: 1+ Labs: CBC, BMP 02/12/17 06:00 02/12/17 06:00 Problem List - Problems (1) Acute metabolic encephalopathy Code(s): G93.41 - METABOLIC ENCEPHALOPATHY (2) Stncn-uj-ptyrwbd kidney injury Code(s): N17.9 - ACUTE KIDNEY FAILURE, UNSPECIFIED N18.9 - CHRONIC KIDNEY DISEASE, UNSPECIFIED (3) Elevated troponin Code(s): R79.89 - OTHER SPECIFIED ABNORMAL FINDINGS OF BLOOD CHEMISTRY (4) Atrial fibrillation Code(s): I48.91 - UNSPECIFIED ATRIAL FIBRILLATION Qualifiers: Atrial fibrillation type: chronic Qualified Code(s): I48.2 - Chronic atrial fibrillation (5) BPH (benign prostatic hyperplasia) Code(s): N40.0 - BENIGN PROSTATIC HYPERPLASIA WITHOUT LOWER URINRY TRACT SYMP (6) CHF (congestive heart failure) Code(s): I50.9 - HEART FAILURE, UNSPECIFIED Qualifiers: Congestive heart failure type: diastolic Congestive heart failure chronicity: chronic Qualified Code(s): I50.32 - Chronic diastolic ( congestive) heart failure (7) Coronary artery disease Code(s): I25.10 - ATHSCL HEART DISEASE OF [place] CORONARY ARTERY W/O ANG PCTRS Qualifiers: Coronary Disease-Associated Artery/Lesion type: [place] artery [place] vs. transplanted heart: [place] heart Associated angina: without angina Qualified Code(s): I25.10 - Atherosclerotic heart disease of [place] coronary artery without angina pectoris (8) HLD (hyperlipidemia) Code(s): E78.5 - HYPERLIPIDEMIA, UNSPECIFIED Qualifiers: Hyperlipidemia type: pure hypercholesterolemia Qualified Code(s): E78.00 - Pure hypercholesterolemia, unspecified; E78.0 - Pure hypercholesterolemia (9) HTN (hypertension) Code(s): I10 - ESSENTIAL (PRIMARY) HYPERTENSION Qualifiers: Hypertension type: essential hypertension Qualified Code(s): I10 - Essential (primary) hypertension (10) Abdominal distension Code(s): R14.0 - ABDOMINAL DISTENSION (GASEOUS) Assessment/Plan (1) Acute metabolic encephalopathy Assessment/Plan: -secondary to end stage CHF causing uremic encephalopathy -case d/w daughter -planning on hospice, palliative care consulted and will talk with daughter -discussed [place] with daughter as well Code(s): G93.41 - METABOLIC ENCEPHALOPATHY (2) Qlndf-bh-zdhzbmn kidney injury Assessment/Plan: -BUN/Cr worsening -nephrology following -difficult because patient is fluid overloaded but lasix worsens renal function Code(s): N17.9 - ACUTE KIDNEY FAILURE, UNSPECIFIED N18.9 - CHRONIC KIDNEY DISEASE, UNSPECIFIED (3) Elevated troponin Assessment/Plan: -appreciate cardiology assistance -no further work up needed Code(s): R79.89 - OTHER SPECIFIED ABNORMAL FINDINGS OF BLOOD CHEMISTRY (4) Atrial fibrillation Assessment/Plan: -continue eliquis and coreg Code(s): I48.91 - UNSPECIFIED ATRIAL FIBRILLATION Qualifiers: Atrial fibrillation type: chronic Qualified Code(s): I48.2 - Chronic atrial fibrillation (5) BPH (benign prostatic hyperplasia) Assessment/Plan: -continue flomax Code(s): N40.0 - BENIGN PROSTATIC HYPERPLASIA WITHOUT LOWER URINRY TRACT SYMP (6) CHF (congestive heart failure) Assessment/Plan: -cardiology following -end stage -transitioning to palliative care Code(s): I50.9 - HEART FAILURE, UNSPECIFIED Qualifiers: Congestive heart failure type: diastolic Congestive heart failure chronicity: chronic Qualified Code(s): I50.32 - Chronic diastolic ( congestive) heart failure (7) Coronary artery disease Assessment/Plan: -cardiology following -appreciate assistance Code(s): I25.10 - ATHSCL HEART DISEASE OF [place] CORONARY ARTERY W/O ANG PCTRS Qualifiers: Coronary Disease-Associated Artery/Lesion type: [place] artery [place] vs. transplanted heart: [place] heart Associated angina: without angina Qualified Code(s): I25.10 - Atherosclerotic heart disease of [place] coronary artery without angina pectoris (8) HLD (hyperlipidemia) Assessment/Plan: -continue statin Code(s): E78.5 - HYPERLIPIDEMIA, UNSPECIFIED Qualifiers: Hyperlipidemia type: pure hypercholesterolemia (9) HTN (hypertension) Assessment/Plan: -controlled Code(s): I10 - ESSENTIAL (PRIMARY) HYPERTENSION Qualifiers: Hypertension type: essential hypertension Qualified Code(s): I10 - Essential (primary) hypertension (10) Abdominal distension Assessment/Plan: -continue stool softeners Code(s): R14.0 - ABDOMINAL DISTENSION (GASEOUS)
[2017-02-12] MEDS: ATORVASTATIN CA 80 MG TABLET (FP) PO SCH (21:13)
[2017-02-13] MEDS: TAMSULOSIN HCL 0.4 MG CAP.ER.24H (FP) PO SCH (06:09)
[2017-02-13 07:24] LABS: BASOPHIL 0.5 % (0-2.0); EOSINOPHIL 1.7 % (0-4.5); MCH 29.3 pg (25.7-33.7); MCHC 31.8 g/dl (32.0-35.9); MEAN CELL VOLUME 92.2 fl (80-96); MEAN PLT VOLUME 9.5 fl (7.5-11.1); NEUTROPHILS 86.7 % (42.8-82.8); PLATELET COUNT 163 K/MM3 (134-434); RDW 20.1 % (11.9-15.9); WHITE BLOOD COUNT 10.5 K/mm3 (4.0-10.0)
[2017-02-13 08:20] LABS: CALCIUM 8.2 mg/dL (8.5-10.1); MAGNESIUM 3.8 mg/dL (1.8-2.4); PHOSPHOROUS 4.9 mg/dL (2.5-4.9)
--- NOTE | 2017-02-13 08:59 | PN ---
Progress Note, Physician Chief Complaint: Events noted Intermittent dyspnea currently on NC Baseline organic brain syndrome History of Present Illness: Patient was seen and examined. Awake. Chart was reviewed No significant change - Current Medication List Current Medications: Active Medications Acetaminophen (Tylenol -) 650 mg PO Q4H PRN PRN Reason: FEVER OR PAIN Last Admin: 02/10/17 22:26 Dose: 650 mg Apixaban (Eliquis -) 2.5 mg PO BID [facility] Last Admin: 02/12/17 21:13 Dose: 2.5 mg Atorvastatin Calcium (Lipitor -) 80 mg PO HS [facility] Last Admin: 02/12/17 21:13 Dose: 80 mg Carvedilol (Coreg -) 6.25 mg PO DAILY [facility] Last Admin: 02/12/17 09:59 Dose: 6.25 mg Docusate Sodium (Colace -) 100 mg PO BID [facility] Last Admin: 02/12/17 21:13 Dose: 100 mg Ondansetron HCl (Zofran Injection) 4 mg IVPB Q6H PRN PRN Reason: NAUSEA Polyethylene Glycol (Miralax (For Daily Use) -) 17 gm PO BID [facility] Last Admin: 02/12/17 21:13 Dose: Not Given Tamsulosin HCl (Flomax -) 0.4 mg PO AM [facility] Last Admin: 02/13/17 06:09 Dose: 0.4 mg - Objective Vital Signs: Vital Signs Temperature 97.4 F L 02/13/17 05:44 Pulse Rate 110 H 02/13/17 05:44 Respiratory Rate 20 02/13/17 05:44 Blood Pressure 101/63 02/13/17 05:44 O2 Sat by Pulse Oximetry (%) 95 02/12/17 21:00 Neck: Yes: Supple Cardiovascular: Yes: Pulse Irregular, S1, S2 Respiratory: Yes: Diminished Gastrointestinal: Yes: Normal Bowel Sounds, Soft. No: Tenderness Edema: No Labs: CBC, BMP 02/13/17 06:10 02/13/17 06:10 Problem List - Problems (1) Elevated troponin Code(s): R79.89 - OTHER SPECIFIED ABNORMAL FINDINGS OF BLOOD CHEMISTRY (2) Mental status change Code(s): R41.82 - ALTERED MENTAL STATUS, UNSPECIFIED Qualifiers: Altered mental status type: unspecified Qualified Code(s): R41.82 - Altered mental status, unspecified (3) Subendocardial ischemia Code(s): I24.8 - OTHER FORMS OF ACUTE ISCHEMIC HEART DISEASE (4) Imkbi-nm-xdnqhlp kidney injury Code(s): N17.9 - ACUTE KIDNEY FAILURE, UNSPECIFIED N18.9 - CHRONIC KIDNEY DISEASE, UNSPECIFIED (5) Atrial fibrillation Code(s): I48.91 - UNSPECIFIED ATRIAL FIBRILLATION Qualifiers: Atrial fibrillation type: chronic Qualified Code(s): I48.2 - Chronic atrial fibrillation (6) CHF (congestive heart failure) Code(s): I50.9 - HEART FAILURE, UNSPECIFIED Qualifiers: Congestive heart failure type: diastolic Congestive heart failure chronicity: chronic Qualified Code(s): I50.32 - Chronic diastolic ( congestive) heart failure (7) Coronary artery disease Code(s): I25.10 - ATHSCL HEART DISEASE OF [place] CORONARY ARTERY W/O ANG PCTRS Qualifiers: Coronary Disease-Associated Artery/Lesion type: [place] artery [place] vs. transplanted heart: [place] heart Associated angina: without angina Qualified Code(s): I25.10 - Atherosclerotic heart disease of [place] coronary artery without angina pectoris (8) HLD (hyperlipidemia) Code(s): E78.5 - HYPERLIPIDEMIA, UNSPECIFIED Qualifiers: Hyperlipidemia type: pure hypercholesterolemia Qualified Code(s): E78.00 - Pure hypercholesterolemia, unspecified; E78.0 - Pure hypercholesterolemia (9) HTN (hypertension) Code(s): I10 - ESSENTIAL (PRIMARY) HYPERTENSION Qualifiers: Hypertension type: essential hypertension Qualified Code(s): I10 - Essential (primary) hypertension (10) Pleural effusion Code(s): J90 - PLEURAL EFFUSION, NOT ELSEWHERE CLASSIFIED (11) Pulmonary mass Code(s): R91.8 - OTHER NONSPECIFIC ABNORMAL FINDING OF LUNG FIELD (12) Status post coronary artery stent placement Code(s): Z95.5 - PRESENCE OF CORONARY ANGIOPLASTY IMPLANT AND GRAFT Assessment/Plan 1. 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 Acute on chronic kidney injury with hyperkalemia and hypernatremia 3. Acute on chronic diastolic CHF, infiltrative cardiomyopathy cannot be excluded 4. CAD post PCI/stent, subendocardial ischemia 5. HTN 6. Hypercholesterolemia 7. Atrial fibrillation 8. Anemia 9. Pulmonary masses with R>L pleural effusion, r/o malignancy PLAN: 1. Continue Carvedilol as hemodynamics tolerate 2. Diuretics as needed with monitoring renal function and electrolytes and resume Losartan once renal function stabilizes and hyperkalemia resolves. Follow Na level closely for hypernatremia 3. Continue Eliquis 2.5 mg bid and continue Lipitor 4. Work up of pulmonary mass has been deferred as stated on previous note 5. Eventually SNF placement and continue aspiration precaution. DVT prophylaxis Further plans are to follow DNR Gulshan Escobedo MD
[2017-02-13] MEDS ORDERED: PT OWN MED DRAWER 7, Y5N ONE (09:24)
[2017-02-13] MEDS: ACETAMINOPHEN 325 MG TABLET (FP) PO PRN (09:34)
[2017-02-13] MEDS: CARVEDILOL 6.25 MG TABLET (FP) PO SCH (09:35)
[2017-02-13] MEDS: DOCUSATE SODIUM 100 MG CAPSULE (FP) PO SCH ×2 (09:36→21:15)
[2017-02-13] MEDS: APIXABAN 2.5 MG TABLET PO SCH ×2 (09:36→21:15)
[2017-02-13] MEDS: POLYETHYLENE GLYCOL 3350 119 GM BTL PO SCH ×2 (10:50→21:15)
--- NOTE | 2017-02-13 16:32 | PN ---
Progress Note (short form) - Note Progress Note: Renal follow up for DARNELL on CKD Pt seen and examined at the bedside awake on NC alert but appears confused meyer in place with very little urine Vital Signs Temperature 97.2 F L 02/13/17 15:04 Pulse Rate 81 02/13/17 15:04 Respiratory Rate 20 02/13/17 15:04 Blood Pressure 91/58 02/13/17 15:04 O2 Sat by Pulse Oximetry (%) 99 02/13/17 11:05 Intake & Output 02/10/17 02/11/17 02/12/17 02/13/17 23:59 23:59 23:59 23:59 Intake Total 150 50 Output Total 350 350 450 100 Balance -200 -350 -400 -100 Gen: NAD, awake but confused CVS: RRR, No M/R Lungs: + rales at lung bases Abd: soft NT/ND Ext: Trace edema in LE Neuro: AAOX3, slow, confused : Meyer in place CBC, BMP 02/13/17 06:10 02/13/17 06:10 Current Medications Acetaminophen (Tylenol -) 650 mg PO Q4H PRN PRN Reason: FEVER OR PAIN Last Admin: 02/13/17 09:34 Dose: 650 mg Apixaban (Eliquis -) 2.5 mg PO BID [facility] Last Admin: 02/13/17 09:36 Dose: 2.5 mg Atorvastatin Calcium (Lipitor -) 80 mg PO HS [facility] Last Admin: 02/12/17 21:13 Dose: 80 mg Carvedilol (Coreg -) 6.25 mg PO DAILY [facility] Last Admin: 02/13/17 09:35 Dose: 6.25 mg Docusate Sodium (Colace -) 100 mg PO BID [facility] Last Admin: 02/13/17 09:36 Dose: 100 mg Ondansetron HCl (Zofran Injection) 4 mg IVPB Q6H PRN PRN Reason: NAUSEA Polyethylene Glycol (Miralax (For Daily Use) -) 17 gm PO BID [facility] Last Admin: 02/13/17 10:50 Dose: Not Given Tamsulosin HCl (Flomax -) 0.4 mg PO AM [facility] Last Admin: 02/13/17 06:09 Dose: 0.4 mg #Acute on Chronic Renal failure, now oliguric BUN/Cr significantly decreased at this time Oliguric urine output PRN lasix for acute sob prognosis very poor not a candidate for [facility] Hospice/Pallative Evaluation Thank you Devin Edmondson DO
--- NOTE | 2017-02-13 16:47 | PN ---
Physical Exam: Medicine coverage for Dr. Swain SUBJECTIVE: Patient seen and examined. He says he feels alright, he is drinking ensure by daughter. limb restraints in place OBJECTIVE: Vital Signs Period Temp Pulse Resp BP Sys/Seaman Pulse Ox Last 24 Hr 97.2 F-98.5 F 70-110 20-20 86-107/47-63 95-99 PE Neuro: alert, awake, oriented to hospital, daughters, mumbles words Heent: dry mm Pulm: diminished bases with crackles, + NC CV: s1 s2 irregular rhythm Abd: distended, soft, + bc : meyer, decreased outpt Ext: Dry skin scratches RLL, no le edema Laboratory Results - last 24 hr 02/13/17 02/13/17 06:10 06:10 WBC 10.5 H RBC 3.84 L Hgb 11.2 L Hct 35.4 MCV 92.2 MCHC 31.8 L RDW 20.1 H Plt Count 163 MPV 9.5 Neutrophils % 86.7 H Lymphocytes % 5.0 L Monocytes % 6.1 Eosinophils % 1.7 Basophils % 0.5 Sodium 149 H Potassium 5.1 Chloride 113 H Carbon Dioxide 26 Anion Gap 10 BUN 136 H* Creatinine 3.0 H Random Glucose 109 H Calcium 8.2 L Phosphorus 4.9 Magnesium 3.8 H Active Medications Generic Name Dose Route Start Last Admin Trade Name Freq PRN Reason Stop Dose Admin Acetaminophen 650 mg 01/28/17 16:05 02/13/17 09:34 Tylenol - PO 650 mg Q4H PRN Administration FEVER OR PAIN Apixaban 2.5 mg 01/28/17 22:00 02/13/17 09:36 Eliquis - PO 2.5 mg BID [facility] Administration Atorvastatin Calcium 80 mg 01/28/17 22:00 02/12/17 21:13 Lipitor - PO 80 mg HS [facility] Administration Carvedilol 6.25 mg 01/29/17 10:00 02/13/17 09:35 Coreg - PO 6.25 mg DAILY [facility] Administration Docusate Sodium 100 mg 01/28/17 22:00 02/13/17 09:36 Colace - PO 100 mg BID [facility] Administration Ondansetron HCl 4 mg 01/28/17 16:05 Zofran Injection IVPB Q6H PRN NAUSEA Polyethylene Glycol 17 gm 02/05/17 22:00 02/13/17 10:50 Miralax (For Daily Use) - PO Not Given BID [facility] Tamsulosin HCl 0.4 mg 01/29/17 07:00 02/13/17 06:09 Flomax - PO 0.4 mg AM [facility] Administration Assessment: 86 year old male with PMhx of CAD s/p PCI and stenting, CHF ( diastolyc dysfunction), BPH, CKD ,Hypertension admitted w/ concerns of worsening dementia, confusion and abd distension and found to be in ARF Plan: 1. Acute metabolic encephalopathy - Secondary to end stage CHF causing uremic encephalopathy - Plan for [place], social work and palliative care involved - Per daughter would like to continue with medication and lab draws, medical management as normal 2. Divqt-em-izicmfc kidney injury - BUN/Cr worsening - Lasix PRN SOB per renal - Not Candidate for HD 3. Atrial fibrillation - Continue eliquis and coreg 4. CAD - Cont lipitor/Coreg 5. CHF, end stage - Coreg as BP and HR tolerate 6. Hypernatremia - Caution with fluids pulm congestion 7. BPH - Continue flomax 8. Elevated troponin - No further work up 9. HLD -continue statin 10. HTN - Controlled 11. Abdominal distension - Continue stool softeners Dispo: - [place] planned DNR/DNI Visit type - Emergency Visit Emergency Visit: Yes ED Registration Date: 01/28/17 Care time: The patient presented to the Emergency Department on the above date and was hospitalized for further evaluation of their emergent condition. - New Patient This patient is new to me today: Yes Date on this admission: 02/13/17 - Critical Care Critical Care patient: No
[2017-02-13] MEDS: ATORVASTATIN CA 80 MG TABLET (FP) PO SCH (21:15)
[2017-02-14] MEDS: TAMSULOSIN HCL 0.4 MG CAP.ER.24H (FP) PO SCH (07:26)
[2017-02-14 08:55] LABS: CALCIUM 8.1 mg/dL (8.5-10.1); CREATININE 3.3 mg/dL (0.7-1.3)
[2017-02-14] MEDS ORDERED: SODIUM POLYSTYRENE SULFONATE 15 GM/60 ML BOTTLE PO ONE ×2 (11:00→16:00)
--- NOTE | 2017-02-14 11:43 | PN ---
Progress Note (short form) - Note Progress Note: Renal follow up for DARNELL on CKD Pt seen and examined at the bedside laying in bed off facemask o2 confused, lethargic poor urine output Vital Signs Temperature 97.0 F L 02/14/17 10:07 Pulse Rate 110 H 02/14/17 10:07 Respiratory Rate 20 02/14/17 10:07 Blood Pressure 99/70 02/14/17 10:07 O2 Sat by Pulse Oximetry (%) 97 02/13/17 21:15 Intake & Output 02/11/17 02/12/17 02/13/17 02/14/17 23:59 23:59 23:59 23:59 Intake Total 50 Output Total 350 450 200 300 Balance -350 -400 -200 -300 Gen: NAD, awake but confused CVS: RRR, No M/R Lungs: + rales at lung bases Abd: soft NT/ND Ext: 1+ edema in LE CBC, BMP 02/13/17 06:10 02/14/17 06:00 Current Medications Acetaminophen (Tylenol -) 650 mg PO Q4H PRN PRN Reason: FEVER OR PAIN Last Admin: 02/13/17 09:34 Dose: 650 mg Apixaban (Eliquis -) 2.5 mg PO BID [facility] Last Admin: 02/13/17 21:15 Dose: 2.5 mg Atorvastatin Calcium (Lipitor -) 80 mg PO HS [facility] Last Admin: 02/13/17 21:15 Dose: 80 mg Carvedilol (Coreg -) 6.25 mg PO DAILY [facility] Last Admin: 02/13/17 09:35 Dose: 6.25 mg Docusate Sodium (Colace -) 100 mg PO BID [facility] Last Admin: 02/13/17 21:15 Dose: 100 mg Ondansetron HCl (Zofran Injection) 4 mg IVPB Q6H PRN PRN Reason: NAUSEA Polyethylene Glycol (Miralax (For Daily Use) -) 17 gm PO BID [facility] Last Admin: 02/13/17 21:15 Dose: Not Given Tamsulosin HCl (Flomax -) 0.4 mg PO AM [facility] Last Admin: 02/14/17 07:26 Dose: 0.4 mg #Acute on Chronic Renal failure, now oliguric Renal function w/o improvement Give Lasix 80mg IV today x 1 Kayexlate 30g PO x 1 today for hyperkaemia not a candidate for [employer] supportive care Hospice placement pending continue current medical management as per families wishes Thank you Devin Edmondson DO
[2017-02-14] MEDS: CARVEDILOL 6.25 MG TABLET (FP) PO SCH ×2 (11:55→17:53)
[2017-02-14] MEDS: APIXABAN 2.5 MG TABLET PO SCH ×2 (11:55→21:54)
[2017-02-14] MEDS: DOCUSATE SODIUM 100 MG CAPSULE (FP) PO SCH ×2 (11:55→21:53)
[2017-02-14] MEDS: POLYETHYLENE GLYCOL 3350 119 GM BTL PO SCH ×2 (11:56→21:54)
--- NOTE | 2017-02-14 12:28 | PN ---
Physical Exam: SUBJECTIVE: Patient seen and examined. Denies pain or discomfort. OBJECTIVE: Pt with dark cloudy urine in meyer bag cachectic waiting placement to [facility] As per renal follow up, will give IV lasix today Vital Signs Period Temp Pulse Resp BP Sys/Seaman Pulse Ox Last 24 Hr 97.0 F-97.6 F 81-110 20-20 89-116/42-77 97 GENERAL: The patient is awake, alert to self, cachetic HEAD: Normal with no signs of trauma. EYES: PERRL, extraocular movements intact, sclera anicteric, conjunctiva clear. No ptosis. ENT: Ears normal, nares patent, oropharynx clear without exudates, moist mucous membranes. NECK: Trachea midline, full range of motion, supple. LUNGS: Breath sounds diminished bilaterally HEART: Regular rate and rhythm ABDOMEN: Soft, nontender, nondistended EXTREMITIES: no edema. NEUROLOGICAL: Normal speech, gait not observed. PSYCH: Normal mood, normal affect. SKIN: Warm, dry, normal turgor, no rashes or lesions noted Laboratory Results - last 24 hr 02/14/17 06:00 Sodium 149 H Potassium 5.6 H Chloride 112 H Carbon Dioxide 27 Anion Gap 10 BUN 143 H* Creatinine 3.3 H Random Glucose 108 H Calcium 8.1 L Active Medications Generic Name Dose Route Start Last Admin Trade Name Freq PRN Reason Stop Dose Admin Acetaminophen 650 mg 01/28/17 16:05 02/13/17 09:34 Tylenol - PO 650 mg Q4H PRN Administration FEVER OR PAIN Apixaban 2.5 mg 01/28/17 22:00 02/14/17 11:55 Eliquis - PO 2.5 mg BID [facility] Administration Atorvastatin Calcium 80 mg 01/28/17 22:00 02/13/17 21:15 Lipitor - PO 80 mg HS [facility] Administration Carvedilol 6.25 mg 01/29/17 10:00 02/14/17 11:55 Coreg - PO 6.25 mg DAILY [facility] Administration Docusate Sodium 100 mg 01/28/17 22:00 02/14/17 11:55 Colace - PO 100 mg BID [facility] Administration Furosemide 80 mg 02/14/17 11:42 Lasix Injection - IVPB 02/14/17 11:43 ONCE ONE Ondansetron HCl 4 mg 01/28/17 16:05 Zofran Injection IVPB Q6H PRN NAUSEA Polyethylene Glycol 17 gm 02/05/17 22:00 02/14/17 11:56 Miralax (For Daily Use) - PO Not Given BID [facility] Tamsulosin HCl 0.4 mg 01/29/17 07:00 02/14/17 07:26 Flomax - PO 0.4 mg AM [facility] Administration ASSESSMENT/PLAN: Patient is an 86 year old male with a past medical history of of CAD s/p PCI and stenting, CHF (diastolyc dysfunction), BPH, CKD , hypertension admitted w/ concerns of worsening dementia, confusion and abd distension and found to be in acute renal failure. Neuro: Acute metabolic encephalopathy Assessment/Plan: Likely secondary to end state CHF and uremia Lasix as per renal, with get Lasix 80mg x 1 dose today Monitor urine output Pt awaiting bed at [facility], likely will be hospice as per family GI: Acute on a chronic kidney injury Assessment/Plan: Worsening BUN/Creatinine Lasix as per renal Monitor kidney function monitor Cardiology: Hypertension - chronic Assessment/Plan: hypotensive today, will place parameters on Coreq Atrial fibrillation Assessment/Plan: Continue eliquis Disposition: Awaiting bed at [facility]. DNR/DNI. F.E.N. Fluids: On Lasix Electrolytes: K @5.6, kayexalate given Nutrition: as tolerated Prophylaxis: DVT: scds bilaterally Visit type - Emergency Visit Emergency Visit: Yes ED Registration Date: 01/28/17 Care time: The patient presented to the Emergency Department on the above date and was hospitalized for further evaluation of their emergent condition. - New Patient This patient is new to me today: Yes Date on this admission: 02/14/17 - Critical Care Critical Care patient: No - Discharge Referral Referred to [facility] No
[2017-02-14] MEDS ORDERED: FUROSEMIDE 40 MG/4 ML INJECTABLE VIAL IVPB ONE (12:45)
[2017-02-14] MEDS ORDERED: FUROSEMIDE 100 MG/10 ML INJECTABLE VIAL IVPB ONE (16:00)
--- NOTE | 2017-02-14 16:41 | PN ---
Progress Note, Physician Chief Complaint: Events noted No changes Baseline organic brain syndrome History of Present Illness: Patient was seen and examined. Awake. Chart was reviewed No significant change - Current Medication List Current Medications: Active Medications Acetaminophen (Tylenol -) 650 mg PO Q4H PRN PRN Reason: FEVER OR PAIN Last Admin: 02/13/17 09:34 Dose: 650 mg Apixaban (Eliquis -) 2.5 mg PO BID [facility] Last Admin: 02/14/17 11:55 Dose: 2.5 mg Atorvastatin Calcium (Lipitor -) 80 mg PO HS [facility] Last Admin: 02/13/17 21:15 Dose: 80 mg Carvedilol (Coreg -) 6.25 mg PO DAILY [facility] Docusate Sodium (Colace -) 100 mg PO BID [facility] Last Admin: 02/14/17 11:55 Dose: 100 mg Ondansetron HCl (Zofran Injection) 4 mg IVPB Q6H PRN PRN Reason: NAUSEA Polyethylene Glycol (Miralax (For Daily Use) -) 17 gm PO BID [facility] Last Admin: 02/14/17 11:56 Dose: Not Given Tamsulosin HCl (Flomax -) 0.4 mg PO AM [facility] Last Admin: 02/14/17 07:26 Dose: 0.4 mg - Objective Vital Signs: Vital Signs Temperature 97.3 F L 02/14/17 14:51 Pulse Rate 83 02/14/17 14:51 Respiratory Rate 20 02/14/17 14:51 Blood Pressure 80/50 02/14/17 14:51 O2 Sat by Pulse Oximetry (%) 97 02/13/17 21:15 Neck: Yes: Supple Cardiovascular: Yes: Regular Rate and Rhythm, S1, S2 Respiratory: Yes: Diminished Gastrointestinal: Yes: Normal Bowel Sounds, Soft. No: Tenderness Edema: No Labs: CBC, BMP 02/13/17 06:10 02/14/17 06:00 Problem List - Problems (1) Elevated troponin Code(s): R79.89 - OTHER SPECIFIED ABNORMAL FINDINGS OF BLOOD CHEMISTRY (2) Mental status change Code(s): R41.82 - ALTERED MENTAL STATUS, UNSPECIFIED Qualifiers: Altered mental status type: unspecified Qualified Code(s): R41.82 - Altered mental status, unspecified (3) Subendocardial ischemia Code(s): I24.8 - OTHER FORMS OF ACUTE ISCHEMIC HEART DISEASE (4) Zrsoh-zi-[id number] kidney injury Code(s): N17.9 - ACUTE KIDNEY FAILURE, UNSPECIFIED N18.9 - CHRONIC KIDNEY DISEASE, UNSPECIFIED (5) Atrial fibrillation Code(s): I48.91 - UNSPECIFIED ATRIAL FIBRILLATION Qualifiers: Atrial fibrillation type: chronic Qualified Code(s): I48.2 - Chronic atrial fibrillation (6) CHF (congestive heart failure) Code(s): I50.9 - HEART FAILURE, UNSPECIFIED Qualifiers: Congestive heart failure type: diastolic Congestive heart failure chronicity: chronic Qualified Code(s): I50.32 - Chronic diastolic ( congestive) heart failure (7) Coronary artery disease Code(s): I25.10 - ATHSCL HEART DISEASE OF [place] CORONARY ARTERY W/O ANG PCTRS Qualifiers: Coronary Disease-Associated Artery/Lesion type: [place] artery [place] vs. transplanted heart: [place] heart Associated angina: without angina Qualified Code(s): I25.10 - Atherosclerotic heart disease of [place] coronary artery without angina pectoris (8) HLD (hyperlipidemia) Code(s): E78.5 - HYPERLIPIDEMIA, UNSPECIFIED Qualifiers: Hyperlipidemia type: pure hypercholesterolemia Qualified Code(s): E78.00 - Pure hypercholesterolemia, unspecified; E78.0 - Pure hypercholesterolemia (9) HTN (hypertension) Code(s): I10 - ESSENTIAL (PRIMARY) HYPERTENSION Qualifiers: Hypertension type: essential hypertension Qualified Code(s): I10 - Essential (primary) hypertension (10) Pleural effusion Code(s): J90 - PLEURAL EFFUSION, NOT ELSEWHERE CLASSIFIED (11) Pulmonary mass Code(s): R91.8 - OTHER NONSPECIFIC ABNORMAL FINDING OF LUNG FIELD (12) Status post coronary artery stent placement Code(s): Z95.5 - PRESENCE OF CORONARY ANGIOPLASTY IMPLANT AND GRAFT Assessment/Plan 1. 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 Acute on chronic kidney injury with hyperkalemia and hypernatremia 3. Acute on chronic diastolic CHF, infiltrative cardiomyopathy cannot be excluded 4. CAD post PCI/stent, subendocardial ischemia 5. HTN 6. Hypercholesterolemia 7. Atrial fibrillation 8. Anemia 9. Pulmonary masses with R>L pleural effusion, r/o malignancy PLAN: 1. Continue Carvedilol as hemodynamics tolerate 2. Diuretics as needed with monitoring renal function and electrolytes and resume Losartan once renal function stabilizes and hyperkalemia resolves. Follow Na level closely for hypernatremia 3. Continue Eliquis 2.5 mg bid and continue Lipitor 4. Eventually SNF placement ([facility]) and continue aspiration precaution. DVT prophylaxis Further plans are to follow DNR Gulshan Escobedo MD
[2017-02-14] MEDS ORDERED: PT OWN MED DRAWER 7, Y5N ONE (21:41)
[2017-02-14] MEDS: ATORVASTATIN CA 80 MG TABLET (FP) PO SCH (21:53)
[2017-02-15] MEDS: TAMSULOSIN HCL 0.4 MG CAP.ER.24H (FP) PO SCH (06:10)
[2017-02-15 08:03] LABS: BASOPHIL 0.3 % (0-2.0); EOSINOPHIL 1.2 % (0-4.5); MCH 29.2 pg (25.7-33.7); MCHC 31.9 g/dl (32.0-35.9); MEAN CELL VOLUME 91.4 fl (80-96); MEAN PLT VOLUME 9.6 fl (7.5-11.1); NEUTROPHILS 87.4 % (42.8-82.8); PLATELET COUNT 183 K/MM3 (134-434); RDW 19.9 % (11.9-15.9); WHITE BLOOD COUNT 10.7 K/mm3 (4.0-10.0)
[2017-02-15 08:13] LABS: ALBUMIN 2.7 g/dl (3.4-5.0); MAGNESIUM 3.6 mg/dL (1.8-2.4)
[2017-02-15 08:16] LABS: BILIRUBIN,TOTAL 1.1 mg/dL (0.2-1.0); CREATININE 3.6 mg/dL (0.7-1.3); PHOSPHOROUS 5.8 mg/dL (2.5-4.9); TOT PROT 6.1 g/dl (6.4-8.2)
[2017-02-15] MEDS: APIXABAN 2.5 MG TABLET PO SCH ×2 (11:38→21:34)
[2017-02-15] MEDS: CARVEDILOL 6.25 MG TABLET (FP) PO SCH (11:38)
[2017-02-15] MEDS: POLYETHYLENE GLYCOL 3350 119 GM BTL PO SCH ×2 (11:38→22:58)
[2017-02-15] MEDS: DOCUSATE SODIUM 100 MG CAPSULE (FP) PO SCH ×2 (11:38→21:34)
[2017-02-15] MEDS ORDERED: BISACODYL 10 MG SUPP.RECT RC ONE ×2 (12:30→15:30)
--- NOTE | 2017-02-15 12:32 | PN ---
Physical Exam: SUBJECTIVE: Patient seen and examined OBJECTIVE: worsening renal function abdomen distended + bowel sounds, dulcolax MS x 1 Vital Signs Period Temp Pulse Resp BP Sys/Seaman Pulse Ox Last 24 Hr 97.3 F-98 F 83-109 20-20 80-95/45-50 91-98 GENERAL: The patient is lethargic, easily arousable, alert to self, cachetic HEAD: Normal with no signs of trauma. EYES: PERRL, extraocular movements intact, sclera anicteric, conjunctiva clear. No ptosis. ENT: Ears normal, nares patent, oropharynx clear without exudates, moist mucous membranes. NECK: Trachea midline, full range of motion, supple. LUNGS: Breath sounds diminished bilaterally HEART: Regular rate and rhythm ABDOMEN: Soft, nontender, slightly distended, + bowel sounds EXTREMITIES: no edema. NEUROLOGICAL: Normal speech, gait not observed. PSYCH: Normal mood, normal affect. SKIN: Warm, dry, normal turgor, no rashes or lesions noted Laboratory Results - last 24 hr 02/15/17 02/15/17 06:00 06:00 WBC 10.7 H RBC 3.84 L Hgb 11.2 L Hct 35.1 L MCV 91.4 MCHC 31.9 L RDW 19.9 H Plt Count 183 MPV 9.6 Neutrophils % 87.4 H Lymphocytes % 5.2 L Monocytes % 5.9 Eosinophils % 1.2 Basophils % 0.3 Sodium 150 H Potassium 5.0 Chloride 113 H Carbon Dioxide 26 Anion Gap 11 BUN 154 H* Creatinine 3.6 H Creat Clearance w eGFR 16.08 Random Glucose 115 H Calcium 8.0 L Phosphorus 5.8 H Magnesium 3.6 H Total Bilirubin 1.1 H AST 53 H D ALT 49 D Alkaline Phosphatase 125 H Total Protein 6.1 L Albumin 2.7 L Active Medications Generic Name Dose Route Start Last Admin Trade Name Freq PRN Reason Stop Dose Admin Acetaminophen 650 mg 01/28/17 16:05 02/13/17 09:34 Tylenol - PO 650 mg Q4H PRN Administration FEVER OR PAIN Apixaban 2.5 mg 01/28/17 22:00 02/15/17 11:38 Eliquis - PO 2.5 mg BID [facility] Administration Atorvastatin Calcium 80 mg 01/28/17 22:00 02/14/17 21:53 Lipitor - PO 80 mg HS [facility] Administration Carvedilol 6.25 mg 02/14/17 17:30 02/15/17 11:38 Coreg - PO 6.25 mg DAILY [facility] Administration Docusate Sodium 100 mg 01/28/17 22:00 02/15/17 11:38 Colace - PO 100 mg BID [facility] Administration Ondansetron HCl 4 mg 01/28/17 16:05 Zofran Injection IVPB Q6H PRN NAUSEA Polyethylene Glycol 17 gm 02/05/17 22:00 02/15/17 11:38 Miralax (For Daily Use) - PO 17 grams BID [facility] Administration Tamsulosin HCl 0.4 mg 01/29/17 07:00 02/15/17 06:10 Flomax - PO 0.4 mg AM [facility] Administration ASSESSMENT/PLAN: Patient is an 86 year old male with a past medical history of of CAD s/p PCI and stenting, CHF (diastolyc dysfunction), BPH, CKD , hypertension admitted w/ concerns of worsening dementia, confusion and abd distension and found to be in acute renal failure. Neuro: Acute metabolic encephalopathy Assessment/Plan: Likely secondary to end state CHF and uremia Lasix as per renal Monitor urine output with meyer catheter Worsening renal function toda Pt awaiting bed at [place], likely will be hospice as per family GI: Acute on a chronic kidney injury Assessment/Plan: Worsening BUN/Creatinine Lasix as per renal Monitor kidney function meyer catheter for retention, prolonged immobility and accurate I&Os Cardiology: Hypertension - chronic Assessment/Plan: BP improved today, on Coreq Hold if SBP <100, heart rate less than 60 Atrial fibrillation - chronic Assessment/Plan: Continue eliquis BID Disposition: Awaiting bed at [place]. DNR/DNI. Comfort, daily labs. F.E.N. Fluids: On Lasix, monitor intake and output Electrolytes: K @5.6 yesterday, resolved today Nutrition: as tolerated - encourage PO intake as tolerated Prophylaxis: DVT: scds bilaterally, On Eliquis GI: dulcolax suppository x 1 for abdominal distention Visit type - Emergency Visit Emergency Visit: Yes ED Registration Date: 01/28/17 Care time: The patient presented to the Emergency Department on the above date and was hospitalized for further evaluation of their emergent condition. - New Patient This patient is new to me today: No - Critical Care Critical Care patient: No - Discharge Referral Referred to [facility] Med P.C.: No
[2017-02-15] MEDS ORDERED: ACETAMINOPHEN 650 MG/20.3 ML ORAL SOLUTION (CUPS) PO PRN (13:13)
[2017-02-15] MEDS ORDERED: LEVOFLOXACIN 500 MG IVPB 100 ML IVPB ONE (14:10)
--- NOTE | 2017-02-15 15:32 | PN ---
Progress Note (short form) - Note Progress Note: Renal follow up for DARNELL on CKD Pt seen and examined at the bedside awake but confused son in law at the bedside on Facemask O2 restraints in place Vital Signs Temperature 97.2 F L 02/15/17 10:00 Pulse Rate 87 02/15/17 11:58 Respiratory Rate 20 02/15/17 10:00 Blood Pressure 108/66 02/15/17 10:00 O2 Sat by Pulse Oximetry (%) 98 02/15/17 11:58 Vital Signs Temperature 97.2 F L 02/15/17 10:00 Pulse Rate 87 02/15/17 11:58 Respiratory Rate 20 02/15/17 10:00 Blood Pressure 108/66 02/15/17 10:00 O2 Sat by Pulse Oximetry (%) 98 02/15/17 11:58 Gen: NAD, awake but confused CVS: RRR, No M/R Lungs: + rales at lung bases Abd: soft NT/ND Ext: 1+ edema in LE CBC, BMP 02/15/17 06:00 02/15/17 06:00 Current Medications Acetaminophen (Tylenol Oral Solution -) 650 mg PO Q6H PRN PRN Reason: FEVER OR PAIN Apixaban (Eliquis -) 2.5 mg PO BID [facility] Last Admin: 02/15/17 11:38 Dose: 2.5 mg Atorvastatin Calcium (Lipitor -) 80 mg PO HS [facility] Last Admin: 02/14/17 21:53 Dose: 80 mg Bisacodyl (Dulcolax Suppository -) 10 mg RC ONCE ONE Stop: 02/15/17 15:31 Carvedilol (Coreg -) 6.25 mg PO DAILY [facility] Last Admin: 02/15/17 11:38 Dose: 6.25 mg Docusate Sodium (Colace -) 100 mg PO BID [facility] Last Admin: 02/15/17 11:38 Dose: 100 mg Ondansetron HCl (Zofran Injection) 4 mg IVPB Q6H PRN PRN Reason: NAUSEA Polyethylene Glycol (Miralax (For Daily Use) -) 17 gm PO BID [facility] Last Admin: 02/15/17 11:38 Dose: 17 grams Tamsulosin HCl (Flomax -) 0.4 mg PO AM [facility] Last Admin: 02/15/17 06:10 Dose: 0.4 mg #Acute on Chronic Renal failure, now oliguric Renal function continues to gradually decline at this time Continue Lasix PRN for worsening sob not a candidate for [employer] awaiting bed in hospice Thank you Devin Edmondson DO
[2017-02-15] MEDS ORDERED: PT OWN MED DRAWER 7, Y5N ONE (20:20)
[2017-02-15] MEDS: ATORVASTATIN CA 80 MG TABLET (FP) PO SCH (21:34)
[2017-02-16] MEDS: TAMSULOSIN HCL 0.4 MG CAP.ER.24H (FP) PO SCH (06:59)
[2017-02-16 08:27] LABS: BASOPHIL 0.1 % (0-2.0); EOSINOPHIL 0.4 % (0-4.5); MCH 29.5 pg (25.7-33.7); MCHC 31.8 g/dl (32.0-35.9); MEAN CELL VOLUME 92.6 fl (80-96); NEUTROPHILS 88.6 % (42.8-82.8); PLATELET COUNT 196 K/MM3 (134-434); RDW 20.4 % (11.9-15.9); WHITE BLOOD COUNT 10.3 K/mm3 (4.0-10.0)
[2017-02-16 09:02] LABS: ALBUMIN 2.6 g/dl (3.4-5.0); CALCIUM 8.5 mg/dL (8.5-10.1)
[2017-02-16 09:24] LABS: CREATININE 4.1 mg/dL (0.7-1.3); TOT PROT 5.9 g/dl (6.4-8.2)
[2017-02-16] MEDS: DOCUSATE SODIUM 100 MG CAPSULE (FP) PO SCH ×2 (10:38→21:19)
[2017-02-16] MEDS: APIXABAN 2.5 MG TABLET PO SCH ×2 (10:38→21:19)
[2017-02-16] MEDS: CARVEDILOL 6.25 MG TABLET (FP) PO SCH (10:43)
[2017-02-16] MEDS: POLYETHYLENE GLYCOL 3350 119 GM BTL PO SCH ×2 (10:43→21:20)
--- NOTE | 2017-02-16 15:29 | PN ---
Progress Note (short form) - Note Progress Note: Chief Complaint: Events noted, notes reviewed, patient currently is lethargic and barely arousable History of Present Illness: Seen and examined. Events noted, notes reviewed, patient currently is lethargic and barely arousable Long conversation with the patient's daughter and son-in-law (who were at the bedside) in reference to his clinical presentation and current overall poor prognosis Recommend discontinuation of Eliquis therapy considering the above-noted overall poor prognosis and progressive renal failure (Patient is on hospice care ) - Current Medication List Current Medications Acetaminophen (Tylenol Oral Solution -) 650 mg PO Q6H PRN PRN Reason: FEVER OR PAIN Apixaban (Eliquis -) 2.5 mg PO BID [facility] Last Admin: 02/16/17 10:38 Dose: 2.5 mg Atorvastatin Calcium (Lipitor -) 80 mg PO HS [facility] Last Admin: 02/15/17 21:34 Dose: 80 mg Carvedilol (Coreg -) 6.25 mg PO DAILY [facility] Last Admin: 02/16/17 10:43 Dose: 6.25 mg Docusate Sodium (Colace -) 100 mg PO BID [facility] Last Admin: 02/16/17 10:38 Dose: 100 mg Ondansetron HCl (Zofran Injection) 4 mg IVPB Q6H PRN PRN Reason: NAUSEA Polyethylene Glycol (Miralax (For Daily Use) -) 17 gm PO BID [facility] Last Admin: 02/16/17 10:43 Dose: 17 grams Tamsulosin HCl (Flomax -) 0.4 mg PO AM [facility] Last Admin: 02/16/17 06:59 Dose: 0.4 mg - Objective Vital Signs: Last Vital Signs Temp Pulse Resp BP Pulse Ox 97.3 F L 113 H 18 102/60 99 02/16/17 14:20 02/16/17 14:20 02/16/17 14:20 02/16/17 14:20 02/16/17 13:25 Neck: Supple Cardiovascular: S1 and S2 Regular Rate and Rhythm Respiratory: Diminished Gastrointestinal: Soft benign Normal Bowel Sounds Ext: No Labs: CBC, BMP 02/16/17 06:30 02/16/17 06:30 Assessment/Plan ASSESSMENT: 1. Organic brain syndrome/Dementia 2. Acute on chronic kidney injury with hyperkalemia and hypernatremia 3. Acute on chronic diastolic congestive heart failure class II [place] Heart [employer] classification left ventricular failure, infiltrative cardiomyopathy cannot be excluded 4. CAD post PCI/stent, sub-endocardial ischemia, Angina pectoris 5. HTN, currently hypotensive 6. Hypercholesterolemia 7. Paroxysmal atrial fibrillation [id number] score of 5 8. Pulmonary masses cannot exclude malignancy 9. Anemia PLAN: 1. Discontinue Carvedilol in view of the above-noted hypotension 2. Discontinue diuretics considering the above-noted hypernatremia and lack of clinical response 3. Discontinue Lipitor 4. Discontinue Eliquis, as outlined above considering his overall poor prognosis and progressive renal failure (No data with advanced renal failure) 5. Hospice management and eventual transfer to [facility] Yaa Mackey MD
--- NOTE | 2017-02-16 16:18 | PN ---
Progress Note (short form) - Note Progress Note: Non verbal O/E Engorged neck veins+ mild dyspnea+ Heart irregular] Lungs b/l rales and rhonchi+ Abd ascites+ Ext b/l +1 edema Vital Signs Period Temp Pulse Resp BP Sys/Seaman Pulse Ox Last 24 Hr 97.3 F-97.9 F 80-113 18-20 84-126/53-62 92-99 Current Medications Acetaminophen (Tylenol Oral Solution -) 650 mg PO Q6H PRN PRN Reason: FEVER OR PAIN Apixaban (Eliquis -) 2.5 mg PO BID [facility] Last Admin: 02/16/17 10:38 Dose: 2.5 mg Atorvastatin Calcium (Lipitor -) 80 mg PO HS [facility] Last Admin: 02/15/17 21:34 Dose: 80 mg Carvedilol (Coreg -) 6.25 mg PO DAILY [facility] Last Admin: 02/16/17 10:43 Dose: 6.25 mg Docusate Sodium (Colace -) 100 mg PO BID [facility] Last Admin: 02/16/17 10:38 Dose: 100 mg Ondansetron HCl (Zofran Injection) 4 mg IVPB Q6H PRN PRN Reason: NAUSEA Polyethylene Glycol (Miralax (For Daily Use) -) 17 gm PO BID [facility] Last Admin: 02/16/17 10:43 Dose: 17 grams Tamsulosin HCl (Flomax -) 0.4 mg PO AM [facility] Last Admin: 02/16/17 06:59 Dose: 0.4 mg Laboratory Results - last 24 hr 02/16/17 02/16/17 06:30 06:30 WBC 10.3 H RBC 3.86 L Hgb 11.4 L Hct 35.8 MCV 92.6 MCHC 31.8 L RDW 20.4 H Plt Count 196 MPV 10.0 Neutrophils % 88.6 H Lymphocytes % 4.9 L Monocytes % 6.0 Eosinophils % 0.4 Basophils % 0.1 Sodium 151 H Potassium 5.4 H Chloride 112 H Carbon Dioxide 25 Anion Gap 14 BUN 160 H* Creatinine 4.1 H Creat Clearance w eGFR 13.84 Random Glucose 119 H Calcium 8.5 Total Bilirubin 1.0 AST 64 H D ALT 56 Alkaline Phosphatase 120 H Total Protein 5.9 L Albumin 2.6 L Problems 1. DYING PATIENT The patient has begun the process of dying. At this point doing daily blood work and other investigations are futile and not the most comfortable thing for the patient to bare. I would advise stopping all curative measures and placing on a Morphine drip for palliation. (1) Acute metabolic encephalopathy Code(s): G93.41 - METABOLIC ENCEPHALOPATHY (2) [id number] kidney injury Code(s): N17.9 - (3) Elevated troponin Code(s): R79.89 - OTHER SPECIFIED ABNORMAL FINDINGS OF BLOOD CHEMISTRY (4) Atrial fibrillation Code(s): I48.91 - UNSPECIFIED ATRIAL FIBRILLATION Qualifiers: Atrial fibrillation type: chronic Qualified Code(s): I48.2 - Chronic atrial fibrillation (5) BPH (benign prostatic hyperplasia) Code(s): N40.0 - BENIGN PROSTATIC HYPERPLASIA WITHOUT LOWER URINRY TRACT SYMP (6) CHF (congestive heart failure) Code(s): I50.9 - HEART FAILURE, UNSPECIFIED Qualifiers: Congestive heart failure type: diastolic Congestive heart failure chronicity: chronic Qualified Code(s): I50.32 - Chronic diastolic ( congestive) heart failure (4) Atrial fibrillation Assessment/Plan: -will discuss the futility of this care with the familyesp the continuing eliquis and coreg Code(s): I48.91 - UNSPECIFIED ATRIAL FIBRILLATION Qualifiers:
--- NOTE | 2017-02-16 17:25 | PN ---
Progress Note, Physician Chief Complaint: Patient seen in his bed. Lathargic. Poor communications. Clinical status deteriorating. On Lasix as needed. Urine output suboptimal - Current Medication List Current Medications: Active Medications Acetaminophen (Tylenol Oral Solution -) 650 mg PO Q6H PRN PRN Reason: FEVER OR PAIN Apixaban (Eliquis -) 2.5 mg PO BID [facility] Last Admin: 02/16/17 10:38 Dose: 2.5 mg Atorvastatin Calcium (Lipitor -) 80 mg PO HS [facility] Last Admin: 02/15/17 21:34 Dose: 80 mg Carvedilol (Coreg -) 6.25 mg PO DAILY [facility] Last Admin: 02/16/17 10:43 Dose: 6.25 mg Docusate Sodium (Colace -) 100 mg PO BID [facility] Last Admin: 02/16/17 10:38 Dose: Not Given Ondansetron HCl (Zofran Injection) 4 mg IVPB Q6H PRN PRN Reason: NAUSEA Polyethylene Glycol (Miralax (For Daily Use) -) 17 gm PO BID [facility] Last Admin: 02/16/17 10:43 Dose: Not Given Tamsulosin HCl (Flomax -) 0.4 mg PO AM [facility] Last Admin: 02/16/17 06:59 Dose: 0.4 mg - Objective Vital Signs: Vital Signs Temperature 97.3 F L 02/16/17 14:20 Pulse Rate 113 H 02/16/17 14:20 Respiratory Rate 18 02/16/17 14:20 Blood Pressure 102/60 02/16/17 14:20 O2 Sat by Pulse Oximetry (%) 99 02/16/17 13:25 Labs: CBC, BMP 02/16/17 06:30 02/16/17 06:30 Problem List - Problems (1) Abdominal distension Code(s): R14.0 - ABDOMINAL DISTENSION (GASEOUS) (2) Mental status change Code(s): R41.82 - ALTERED MENTAL STATUS, UNSPECIFIED Qualifiers: Altered mental status type: unspecified Qualified Code(s): R41.82 - Altered mental status, unspecified (3) Acute kidney injury Code(s): N17.9 - ACUTE KIDNEY FAILURE, UNSPECIFIED (4) Acute metabolic encephalopathy Code(s): G93.41 - METABOLIC ENCEPHALOPATHY (5) Vucvn-kr-[id number] kidney injury Code(s): N17.9 - ACUTE KIDNEY FAILURE, UNSPECIFIED N18.9 - CHRONIC KIDNEY DISEASE, UNSPECIFIED (6) Atrial fibrillation Code(s): I48.91 - UNSPECIFIED ATRIAL FIBRILLATION Qualifiers: Atrial fibrillation type: chronic Qualified Code(s): I48.2 - Chronic atrial fibrillation (7) BPH (benign prostatic hyperplasia) Code(s): N40.0 - BENIGN PROSTATIC HYPERPLASIA WITHOUT LOWER URINRY TRACT SYMP (8) CHF (congestive heart failure) Code(s): I50.9 - HEART FAILURE, UNSPECIFIED Qualifiers: Congestive heart failure type: diastolic Congestive heart failure chronicity: chronic Qualified Code(s): I50.32 - Chronic diastolic ( congestive) heart failure (9) CHF exacerbation Code(s): I50.9 - HEART FAILURE, UNSPECIFIED Qualifiers: Congestive heart failure type: combined Qualified Code(s): I50.43 - Acute on chronic combined systolic (congestive) and diastolic (congestive) heart failure (10) Coronary artery disease Code(s): I25.10 - ATHSCL HEART DISEASE OF [place] CORONARY ARTERY W/O ANG PCTRS Qualifiers: Coronary Disease-Associated Artery/Lesion type: [place] artery [place] vs. transplanted heart: [place] heart Associated angina: without angina Qualified Code(s): I25.10 - Atherosclerotic heart disease of [place] coronary artery without angina pectoris (11) HTN (hypertension) Code(s): I10 - ESSENTIAL (PRIMARY) HYPERTENSION Qualifiers: Hypertension type: essential hypertension Qualified Code(s): I10 - Essential (primary) hypertension (12) Hypotension Code(s): I95.9 - HYPOTENSION, UNSPECIFIED Qualifiers: Hypotension type: unspecified hypotension type Qualified Code(s): I95.9 - Hypotension, unspecified (13) Pleural effusion Code(s): J90 - PLEURAL EFFUSION, NOT ELSEWHERE CLASSIFIED Assessment/Plan The patient has profound azotemia. Clinical status deteriorating. Minimal Hyperkalemia noted. On Hospice care. Will follow as needed. Betzy Ardon MD
[2017-02-16] MEDS ORDERED: PT OWN MED DRAWER 7, Y5N ONE (20:57)
[2017-02-16] MEDS: ATORVASTATIN CA 80 MG TABLET (FP) PO SCH (21:19)
[2017-02-17] MEDS: TAMSULOSIN HCL 0.4 MG CAP.ER.24H (FP) PO SCH (07:53)
[2017-02-17] MEDS: CARVEDILOL 6.25 MG TABLET (FP) PO SCH (12:06)
[2017-02-17] MEDS: DOCUSATE SODIUM 100 MG CAPSULE (FP) PO SCH ×2 (12:06→21:53)
[2017-02-17] MEDS: APIXABAN 2.5 MG TABLET PO SCH (12:06)
[2017-02-17] MEDS: POLYETHYLENE GLYCOL 3350 119 GM BTL PO SCH ×2 (12:07→21:52)
--- NOTE | 2017-02-17 14:19 | PN ---
Progress Note (short form) - Note Progress Note: Chief Complaint: Events noted, notes reviewed, patient currently is lethargic and barely arousable History of Present Illness: Seen and examined. Events noted, notes reviewed, patient currently is lethargic and barely arousable As outlined in yesterday recommend discontinuation of Eliquis/Coreg/Lipitor therapies considering the above-noted overall poor prognosis (Patient is on hospice care) - Current Medication List Current Medications Acetaminophen (Tylenol Oral Solution -) 650 mg PO Q6H PRN PRN Reason: FEVER OR PAIN Apixaban (Eliquis -) 2.5 mg PO BID [facility] Last Admin: 02/17/17 12:06 Dose: Not Given Atorvastatin Calcium (Lipitor -) 80 mg PO HS [facility] Last Admin: 02/16/17 21:19 Dose: 80 mg Carvedilol (Coreg -) 6.25 mg PO DAILY [facility] Last Admin: 02/17/17 12:06 Dose: Not Given Docusate Sodium (Colace -) 100 mg PO BID [facility] Last Admin: 02/17/17 12:06 Dose: Not Given Ondansetron HCl (Zofran Injection) 4 mg IVPB Q6H PRN PRN Reason: NAUSEA Polyethylene Glycol (Miralax (For Daily Use) -) 17 gm PO BID [facility] Last Admin: 02/17/17 12:07 Dose: Not Given Tamsulosin HCl (Flomax -) 0.4 mg PO AM [facility] Last Admin: 02/17/17 07:53 Dose: 0.4 mg - Objective Vital Signs: Last Vital Signs Temp Pulse Resp BP Pulse Ox 97.8 F 102 H 16 90/50 99 02/17/17 06:00 02/17/17 06:00 02/17/17 06:00 02/17/17 06:00 02/16/17 13:25 Neck: Supple Cardiovascular: S1 and S2 Regular Rate and Rhythm Respiratory: Diminished Gastrointestinal: Soft benign Normal Bowel Sounds Ext: No Labs: CBC, BMP 02/16/17 06:30 02/16/17 06:30 Assessment/Plan ASSESSMENT: 1. Organic brain syndrome/Dementia 2. Acute on chronic kidney injury with hyperkalemia and hypernatremia 3. Acute on chronic diastolic congestive heart failure class II [place] Heart Association classification left ventricular failure, infiltrative cardiomyopathy cannot be excluded 4. CAD post PCI/stent, sub-endocardial ischemia, Angina pectoris 5. HTN, currently hypotensive 6. Hypercholesterolemia 7. Paroxysmal atrial fibrillation [id number] score of 5 8. Pulmonary masses cannot exclude malignancy 9. Anemia PLAN: 1. As outlined discontinue Carvedilol in view of the above-noted hypotension 2. As outlined discontinue diuretics considering the above-noted hypernatremia and lack of clinical response 3. As outlined discontinue Lipitor 4. As outlined discontinue Eliquis, as outlined above considering his overall poor prognosis and progressive renal failure (No data with advanced renal failure) 5. Hospice management and eventual transfer to [facility] Yaa Mackey MD
--- NOTE | 2017-02-17 14:38 | PN ---
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 Heart irreular Lungs b/l rales+ Abd soft Ascites+ Ext trace edema Vital Signs Period Temp Pulse Resp BP Sys/Seaman Pulse Ox Last 24 Hr 97 F-97.8 F 100-121 16-18 72-90/50-52 Current Medications Acetaminophen (Tylenol Oral Solution -) 650 mg PO Q6H PRN PRN Reason: FEVER OR PAIN Docusate Sodium (Colace -) 100 mg PO BID [facility] Last Admin: 02/17/17 12:06 Dose: Not Given Ondansetron HCl (Zofran Injection) 4 mg IVPB Q6H PRN PRN Reason: NAUSEA Polyethylene Glycol (Miralax (For Daily Use) -) 17 gm PO BID [facility] Last Admin: 02/17/17 12:07 Dose: Not Given Tamsulosin HCl (Flomax -) 0.4 mg PO AM [facility] Last Admin: 02/17/17 07:53 Dose: 0.4 mg 1. DYING PATIENT 2.SVC syndrome The patient is end of life and was unable to reach family yesterday to discuss care. Will attempt again today. Left a message with the RN to have family call me to discuss the condition. Prn Morphine for ansiety and dyspnea for now (1) Acute metabolic encephalopathy Code(s): G93.41 - METABOLIC ENCEPHALOPATHY (2) Koqua-wc-felfaqf kidney injury Code(s): N17.9 - (3) Elevated troponin Code(s): R79.89 - OTHER SPECIFIED ABNORMAL FINDINGS OF BLOOD CHEMISTRY (4) Atrial fibrillation Code(s): I48.91 - UNSPECIFIED ATRIAL FIBRILLATION Qualifiers: Atrial fibrillation type: chronic Qualified Code(s): I48.2 - Chronic atrial fibrillation (5) BPH (benign prostatic hyperplasia) Code(s): N40.0 - BENIGN PROSTATIC HYPERPLASIA WITHOUT LOWER URINRY TRACT SYMP (6) CHF (congestive heart failure) Code(s): I50.9 - HEART FAILURE, UNSPECIFIED Qualifiers: Congestive heart failure type: diastolic Congestive heart failure chronicity: chronic Qualified Code(s): I50.32 - Chronic diastolic ( congestive) heart failure (4) Atrial fibrillation Assessment/Plan: -will discuss the futility of this care with the familyesp the continuing eliquis and coreg Code(s): I48.91 - UNSPECIFIED ATRIAL FIBRILLATION Qualifiers:
[2017-02-17] MEDS ORDERED: morphine CARPU-JECT 2 MG/1 ML DISP.SYRIN IVPUSH PRN (15:08)
[2017-02-18] MEDS: morphine CARPU-JECT 2 MG/1 ML DISP.SYRIN IVPUSH PRN ×2 (03:45→14:58)
[2017-02-18] MEDS: TAMSULOSIN HCL 0.4 MG CAP.ER.24H (FP) PO SCH (06:06)
[2017-02-18] MEDS ORDERED: SODIUM POLYSTYRENE SULFONATE 15 GM/60 ML BOTTLE PO ONE (08:45)
[2017-02-18] MEDS ORDERED: LORAZEPAM CARPU-JECT 2 MG/ML DISP.SYRIN IVPUSH PRN (09:06)
--- NOTE | 2017-02-18 09:16 | PN ---
Physical Exam: SUBJECTIVE: Patient seen and examined. He is not responding. eyes open OBJECTIVE: eyes open, non responsive, confused Engorged neck veins anterior lung sounds with rhonchi worsening kidney function toes mottled d/c restraints, administer lorazepam for anxiety/restlesness palliative care team notified about possibility of inpatient hospice as pt has been awaiting a bed at [facility] for few days monitor pain levels - administer morphine comfort care Vital Signs Period Temp Pulse Resp BP Sys/Seaman Pulse Ox Last 24 Hr 97 F-97.4 F 78-108 16-20 83-103/47-71 99 GENERAL: The patient is awake, alert, and fully oriented, in no acute distress. HEAD: Normal with no signs of trauma. EYES: PERRL, extraocular movements intact, sclera anicteric, conjunctiva clear. No ptosis. ENT: Ears normal, nares patent, oropharynx clear without exudates, moist mucous membranes. NECK: Trachea midline, full range of motion, supple. LUNGS: Breath sounds equal, clear to auscultation bilaterally, no wheezes, no crackles, no accessory muscle use. HEART: Regular rate and rhythm, S1, S2 without murmur, rub or gallop. ABDOMEN: Soft, nontender, nondistended, normoactive bowel sounds, no guarding, no rebound, no hepatosplenomegaly, no masses. EXTREMITIES: 2+ pulses, warm, well-perfused, no edema. NEUROLOGICAL: Cranial nerves II through XII grossly intact. Normal speech, gait not observed. PSYCH: Normal mood, normal affect. SKIN: Warm, dry, normal turgor, no rashes or lesions noted Active Medications Generic Name Dose Route Start Last Admin Trade Name Freq PRN Reason Stop Dose Admin Acetaminophen 650 mg 02/15/17 13:13 Tylenol Oral Solution - PO Q6H PRN FEVER OR PAIN Docusate Sodium 100 mg 01/28/17 22:00 02/17/17 21:53 Colace - PO Not Given BID [facility] Lorazepam 0.5 mg 02/18/17 09:06 Ativan Injection - IVPUSH Q6H PRN ANXIETY Morphine Sulfate 0.5 mg 02/17/17 15:07 02/18/17 03:45 Morphine Injection - IVPUSH 0.5 mg Q3H PRN Administration PAIN Morphine Sulfate 1 mg 02/17/17 15:08 02/18/17 06:50 Morphine Injection - IVPUSH 1 mg Q3H PRN Administration PAIN Ondansetron HCl 4 mg 01/28/17 16:05 Zofran Injection IVPB Q6H PRN NAUSEA Polyethylene Glycol 17 gm 02/05/17 22:00 02/17/17 21:52 Miralax (For Daily Use) - PO Not Given BID [facility] Tamsulosin HCl 0.4 mg 01/29/17 07:00 02/18/17 06:06 Flomax - PO Not Given AM [facility] ASSESSMENT/PLAN:
--- NOTE | 2017-02-18 10:28 | DS ---
Physical Exam: SUBJECTIVE: Patient seen and examined. Non verbal, non responsive, eyes open. OBJECTIVE: eyes open, non responsive, confused Engorged neck veins anterior lung sounds with rhonchi worsening kidney function toes mottled d/c restraints, administer lorazepam for anxiety/restlessness palliative care team notified about possibility of inpatient hospice as pt has been awaiting a bed at [facility] for few days monitor pain levels - administer morphine comfort care Vital Signs Period Temp Pulse Resp BP Sys/Seaman Pulse Ox Last 24 Hr 97 F-97.4 F 83-108 16-18 83-103/47-71 99 PHYSICAL EXAM GENERAL: The patient is lethargic, eyes open, non responsive to verbal stimuli HEAD: Normal with no signs of trauma. EYES: PERRL, extraocular movements intact, sclera anicteric, conjunctiva clear. No ptosis. ENT: Ears normal, nares patent, oropharynx clear without exudates, moist mucous membranes. NECK: Trachea midline, full range of motion, supple. LUNGS: Breath sounds diminished bilaterally HEART: Regular rate and rhythm ABDOMEN: Soft, nontender, slightly distended EXTREMITIES: mottled feet, no edema NEUROLOGICAL: non verbal, bed bound, very weak PSYCH: non verbal SKIN: dry skin, cachectic LABS HOSPITAL COURSE: Date of Admission:01/28/17 Date of Discharge: 02/18/17 Patient is an 86 year old male with a past medical history of of CAD s/p PCI and stenting, CHF (diastolyc dysfunction), BPH, CKD , hypertension admitted w/ concerns of worsening dementia, confusion and abd distension and found to be in acute renal failure. Neuro: Acute metabolic encephalopathy - worsening mental status Assessment/Plan: Likely secondary to end state CHF and uremia Lasix as per renal, Worsening renal function Pt awaiting bed at [facility], likely will be hospice as per family GI: Acute on a chronic kidney injury - worsening/end stage Assessment/Plan: Worsening BUN/Creatinine Monitor kidney function meyer catheter for retention, prolonged immobility and accurate I&Os Cardiology: Hypertension - chronic Assessment/Plan: BP @ goal Hold if SBP <100, heart rate less than 60 engorged neck veins Atrial fibrillation - chronic Assessment/Plan: eliquis stopped - pt unablel to swallow meds Disposition: Awaiting bed at [facility] for hospice vs. inpatient hospice, family to decide. DNR/DNI. Comfort, daily labs as per family wishes. Minutes to complete discharge: 45 Discharge Summary Reason For Visit: AMS Current Active Problems Abdominal distension (Acute) Elevated troponin (Acute) Mental status change (Acute) Subendocardial ischemia (Acute) Condition: Poor - Instructions Disposition: [facility] - Home Medications Comprehensive Discharge Medication List: Ambulatory Orders Tamsulosin HCl 0.4 mg PO AM 11/04/12 Atorvastatin Ca [Lipitor] 80 mg PO HS 11/18/12 Carvedilol [Coreg -] 6.25 mg PO DAILY 06/09/16 Docusate Sodium [Colace -] 100 mg PO BID #30 cap 02/18/17 Lorazepam Injection [Ativan Injection -] 0.5 mg IVPUSH Q6H PRN #30 vial MDD 2mg 02/18/17 Morphine Injection - [Morphine Injection 2 mg/1 mL -] 0.5 mg IVPUSH Q3H PRN #30 vial MDD 4mg 02/18/17 Morphine Injection - [Morphine Injection 2 mg/1 mL -] 1 mg IVPUSH Q3H PRN #30 vial MDD 8mg 02/18/17 Ondansetron Injection [Zofran Injection] 4 mg IVPB Q6H PRN #0 vial 02/18/17 Polyethylene Glycol 3350 [Miralax 119 gm Btl -] 17 gm PO BID #1 bottle 02/18/17 This patient is new to me today: No Emergency Visit: Yes ED Registration Date: 01/28/17 Care time: The patient presented to the Emergency Department on the above date and was hospitalized for further evaluation of their emergent condition. Critical Care patient: No - Discharge Referral Referred to [facility] No
[2017-02-18] MEDS: DOCUSATE SODIUM 100 MG CAPSULE (FP) PO SCH (12:34)
[2017-02-18] MEDS: POLYETHYLENE GLYCOL 3350 119 GM BTL PO SCH (12:34)
--- NOTE | 2017-02-18 14:53 | HOSP ---
Physical Examination Vital Signs: Vital Signs Temperature 97.4 F L 02/18/17 14:30 Pulse Rate 108 H 02/18/17 05:43 Respiratory Rate 18 02/18/17 05:43 Blood Pressure 103/68 02/18/17 05:43 O2 Sat by Pulse Oximetry (%) 99 02/17/17 21:00 Labs: CBC, BMP 02/16/17 06:30 02/16/17 06:30 Hospitalist Encounter Assessment: Asked to see patient prior to transport to [facility] concerned over taking patient with a low BP of 75/40 On exam, pt noted to have agonal breathing which has changed since this a.m. His BP is 60/xxx, pupils non reactive to light Does not appear to be in pain or distress, has morphine prn appears imminent Daughter Katrina called and informed of the above
[2017-02-18] MEDS ORDERED: MORPHINE 100 MG in SODIUM CHLORIDE 98 ML IVPB SCH (15:15)
--- NOTE | 2017-02-18 16:21 | PN ---
Progress Note (short form) - Note Progress Note: Renal follow up for DARNELL on CKD Pt seen and examined at the bedside earlier today letharic, not responsive to questions spoke with daughters at the bedside has some rapid breathing Last Vital Signs Temp Pulse Resp BP Pulse Ox 97.4 F L 108 H 18 103/68 99 02/18/17 14:30 02/18/17 05:43 02/18/17 09:00 02/18/17 05:43 02/17/17 21:00 Gen: MIld distress from SOB CVS: RRR, No M/R Lungs: + rales at lung bases Abd: soft NT/ND Ext: 1+ edema in LE CBC, BMP 02/16/17 06:30 02/16/17 06:30 Current Medications Acetaminophen (Tylenol Oral Solution -) 650 mg PO Q6H PRN PRN Reason: FEVER OR PAIN Docusate Sodium (Colace -) 100 mg PO BID [facility] Last Admin: 02/18/17 12:34 Dose: Not Given Morphine Sulfate 100 mg/ (Sodium Chloride) 100 mls @ 1 mls/hr IVPB TITR [facility]; 1 MG/HR PRN Reason: Protocol Lorazepam (Ativan Injection -) 0.5 mg IVPUSH Q6H PRN PRN Reason: ANXIETY Morphine Sulfate (Morphine Injection -) 0.5 mg IVPUSH Q3H PRN PRN Reason: PAIN Last Admin: 02/18/17 14:58 Dose: 0.5 mg Morphine Sulfate (Morphine Injection -) 1 mg IVPUSH Q3H PRN PRN Reason: PAIN Last Admin: 02/18/17 06:50 Dose: 1 mg Ondansetron HCl (Zofran Injection) 4 mg IVPB Q6H PRN PRN Reason: NAUSEA Polyethylene Glycol (Miralax (For Daily Use) -) 17 gm PO BID [facility] Last Admin: 02/18/17 12:34 Dose: Not Given Tamsulosin HCl (Flomax -) 0.4 mg PO AM [facility] Last Admin: 02/18/17 06:06 Dose: Not Given #Acute on Chronic Renal failure, now oliguric Renal function continues to decline full hospice care at this time no further labs Palliative follow up Will sign off case at this time Thank you for allowing us to take part in the care of this patient Devin Edmondson DO
[2017-02-19 03:11] VITALS: BP 58/38; PULSE 114; TEMP 97.4
--- NOTE | 2017-02-19 04:46 | HOSP ---
Subjective - Review of Symptoms Events since last encounter: Hospitalist Encounter Notified by the primary RN earlier that the patient is hypotensive, currently on a Morphine Drip. Patient is receiving Palliative Care and is a DNR/DNI. Notified by the primary RN, that the patient is unresponsive with no spontaneous respirations. Arrived to bedside, patient is unresponsive, no spontaneous, respiration, no palpable or apical pulses, no response to sternal rub, pupils are fixed non- responsive to light. No gag reflex noted, no voluntary movement of extremities, skin cool and mottled. Patient pronounced at 02:30. Family, ODN notified by RN RN [place] [facility] [place] Physical Examination Vital Signs: Vital Signs Temperature 97.4 F L 02/19/17 01:30 Pulse Rate 114 H 02/19/17 01:30 Respiratory Rate 22 02/19/17 01:30 Blood Pressure 58/38 02/19/17 01:30 O2 Sat by Pulse Oximetry (%) 97 02/18/17 21:00 Constitutional: Yes: Pallor, Thin Eyes: Yes: Other (pupils non-reactive, fixed,) Cardiovascular: Yes: Other (No apical or palpable pulses) Respiratory: Yes: On Nasal O2, Other (No spontaneous respirations) Neurological: Yes: Unresponsive Labs: CBC, BMP 02/16/17 06:30 02/16/17 06:30 Intake & Output 02/16/17 02/17/17 02/18/17 02/19/17 23:59 23:59 23:59 23:59 Intake Total 0 50 Output Total 180 100 75 Balance -180 -100 -25 Current Medications Generic Name Dose Route Start Last Admin Trade Name Freq PRN Reason Stop Dose Admin Acetaminophen 650 mg 02/15/17 13:13 Tylenol Oral Solution - PO Q6H PRN FEVER OR PAIN Morphine Sulfate 100 mg/ 100 mls @ 1 mls/hr 02/18/17 15:15 02/18/17 17:26 Sodium Chloride IVPB 1 mls/hr TITR [facility] Administration Protocol 1 MG/HR Lorazepam 0.5 mg 02/18/17 09:06 Ativan Injection - IVPUSH Q6H PRN ANXIETY Morphine Sulfate 0.5 mg 02/17/17 15:07 02/18/17 14:58 Morphine Injection - IVPUSH 0.5 mg Q3H PRN Administration PAIN Morphine Sulfate 1 mg 02/17/17 15:08 02/18/17 06:50 Morphine Injection - IVPUSH 1 mg Q3H PRN Administration PAIN Ondansetron HCl 4 mg 01/28/17 16:05 Zofran Injection IVPB Q6H PRN NAUSEA Tamsulosin HCl 0.4 mg 01/29/17 07:00 02/18/17 06:06 Flomax - PO Not Given AM [facility]
== END 2017-02-19 05:21 | disposition expired | DRG 291 ==
LOC: JER 11:44 → JERBED 15:12 → J7W 16:50
PROVIDERS: ADMIT Internal Medicine; ATTEND Nurse Practitioner Family
PROC: 3E0F7GC Introduction of Other Therapeutic Substance into Respiratory Tract, Via Natural or Artificial Opening (ICD-10-PCS; principal; 2017-02-09)
DX: I13.2 Hypertensive heart and chronic kidney disease with heart failure and with stage 5 chronic kidney disease, or end stage renal disease (principal); N18.6 End stage renal disease; G93.41 Metabolic encephalopathy; I50.33 Acute on chronic diastolic (congestive) heart failure; N17.9 Acute kidney failure, unspecified; G45.8 Other transient cerebral ischemic attacks and related syndromes; I24.8 Other forms of acute ischemic heart disease; N40.0 Benign prostatic hyperplasia without lower urinary tract symptoms; E78.00 Pure hypercholesterolemia, unspecified; F41.1 Generalized anxiety disorder; I25.119 Atherosclerotic heart disease of native coronary artery with unspecified angina pectoris; Z95.5 Presence of coronary angioplasty implant and graft; F03.90 Unspecified dementia, unspecified severity, without behavioral disturbance, psychotic disturbance, mood disturbance, and anxiety; E88.09 Other disorders of plasma-protein metabolism, not elsewhere classified; E83.39 Other disorders of phosphorus metabolism; D64.9 Anemia, unspecified; K56.41 Fecal impaction; R91.8 Other nonspecific abnormal finding of lung field; E83.41 Hypermagnesemia; E87.5 Hyperkalemia; R34 Anuria and oliguria; R14.0 Abdominal distension (gaseous); Z66 Do not resuscitate
CPT/HCPCS: 36415; 70450-TC; 71010-TC; 74000-TC; 74020-TC; 74230-TC; 76775-TC; 80048; 80053; 81003; 81015; 82140; 82550; 82553; 82570; 83605; 83690; 83735; 84100; 84156; 84443; 84484; 84540; 85025; 92611-GN; 93005; 93010; 94640; 97116-GP; 97161-GP; 99284-25